=== PATIENT | female | born 1950 | race Caucasian/White ===

== ENCOUNTER 2020-01-16 02:57 | Emergency (ER) | payer MEDICARE, OTHER, SELFPAY ==
--- NOTE | ~2020-01-16 | XR_ITS ---
EXAMINATION: XR finger 3rd RT min 2V DATE: 01/16/2020 03:56 INDICATION: Swelling and pain at the right third digit TECHNIQUE: Dorsal palmar, lateral and 2 oblique views of the right third digit were obtained COMPARISON: None FINDINGS: Alignment is normal. No fracture. Mild polyarticular osteoarthritis including at the third metacarpop halangeal, second and third proximal interphalangeal and third and fourth distal interphalangeal join ts. No cortical erosions or periosteal reaction. Mild soft tissue swelling throughout the third digit . IMPRESSION: 1. Mild polyarticular osteoarthritis at the visualized right hand. No acute osseous abnormality. Reviewed, dictated and finalized at location A. IMPRESSION: 1. Mild polyarticular osteoarthritis at the visualized right hand. No acute oss eous abnormality.
[2020-01-16 03:25] VITALS: BP 154/72; PULSE 65; RESP 20; TEMP 36; O2SAT 100
[2020-01-16 05:11] VITALS: BP 144/78; PULSE 68; RESP 14; O2SAT 96
--- NOTE | 2020-01-16 06:44 | ED.SKABFB ---
HPI - Skin/Abscess/Foreign Bdy General Chief complaint: Skin/Abscess/Foreign Body Stated complaint: right middle finger injury/infx Time Seen by Provider: 01/16/20 03:52 History of Present Illness HPI narrative: Patient is a 69-year-old female who presents ER with swelling to her right third digit over the fat pad of the finger. Reports she poked her finger on something about 1 week ago. She developed swelling and then actually had a purulent area that was draining. It is no longer draining and the swelling has increased. No fevers or chills or sweats. No red streaking up the arm. Related Data Allergies Allergy/AdvReac Type Severity Reaction Status Date / Time Penicillins Allergy Unknown Hives Verified 01/16/20 03:24 Review of Systems Constitutional: Constitutional: Denies chills and Denies fever(s) Musculoskeletal: Musculoskeletal: Denies arthralgias and Denies joint swelling Comments: Finger swelling Neurologic: Denies focal weakness and Denies numbness PMFSH Past Medical History Medical History (Updated 01/16/20 @ 06:49 by Moe Whtye MD) Hypertension Surgical History Surgical History (Updated 01/16/20 @ 06:46 by Moe Whyte MD) History of cholecystectomy History of left oophorectomy Family History Family History (Updated 11/19/17 @ 14:57 by DOCTOR UNKNOWN) Mother Cerebrovascular accident Family history of emphysema Family history of diabetes mellitus in first degree relative Family history of type 2 diabetes mellitus Sibling Hypertension Cerebrovascular accident Family history of diabetes mellitus in first degree relative Patient's sister is in good health Father Hypertension Family history of alcoholism Other Diabetes mellitus Family history of allergic disorder Social History Social History Smoking status: Former smoker Smoking end date: 07/02/87 Alcohol intake: never Gender identity (if verbalized by the patient): Female Exam Narrative: Exam Narrative: GENERAL: Well-appearing, well-nourished, and in no acute distress. HEAD: Normocephalic, atraumatic. SKIN: Warm, dry, no rash. Swelling of the fat pad of the right third digit consistent with a felon, central area over the fat pad where there was purulent drainage that is not currently draining. NEURO: No focal deficits. Alert and oriented x3. PSYCH: Normal mood and affect. Course Vital Signs Vital signs: Vital Signs Temperature 96.8 F L 01/16/20 03:25 Pulse Rate 65 01/16/20 03:25 Respiratory Rate 20 01/16/20 03:25 Blood Pressure 154/72 H 01/16/20 03:25 Pulse Oximetry 100 01/16/20 03:25 Temperature 96.8 F L 01/16/20 03:25 Pulse Rate 65 01/16/20 03:25 Respiratory Rate 20 01/16/20 03:25 Blood Pressure 154/72 H 01/16/20 03:25 Pulse Oximetry 100 01/16/20 03:25 Procedures Abscess I/D finger: Date of Incision: 01/16/20 Time of Incision: 06:40 Side (if applicable): right Sedation/analgesia: none Local Anesthetic: lidocaine 1% Amount of anesthesia used (mL): 2 Technique: incised with #11 blade Irrigation: No Packing used?: none I&D Results: Nothing Complications: other (none) Discharge Plan Discharge Clinical Impression: Felon of finger Patient Disposition: Home, Self-Care Condition: Stable Instructions: Cellulitis (ED) Additional Instructions: You have an infection of the soft tissue of your finger. Take antibiotics to resolve your symptoms. Return the ER if you have worsening pain, you have fever over 100.4 ?F, you have additional concerns. Prescriptions: New sulfamethoxazole-trimethoprim [Bactrim DS] 800-160 mg tablet 1 tablet PO Q12H Qty: 14 RF: 0 Follow-up/Referrals: PHYSICIAN,[facility] EXEC [Primary Care Provider] - Ilya Rodríguez MD [Physician] - 1 Week
[2020-01-16 06:58] VITALS: BP 159/82; PULSE 72; RESP 14; TEMP 36.8; O2SAT 100
== END 2020-01-16 07:00 | disposition home or self-care (01) ==
PROVIDERS: Emergency Provider Emergency Medicine
DX: L03.011 Cellulitis of right finger (principal); I10 Essential (primary) hypertension; Z87.891 Personal history of nicotine dependence
CPT/HCPCS: 10060; 26010; 73140; 99283

== ENCOUNTER 2020-07-13 09:36 | Outpatient (CLI) | payer MEDICARE, OTHER, SELFPAY ==
[2020-07-13 10:09] LABS: Hemoglobin A1C 6.2 % (<5.7)
[2020-07-13 10:13] LABS: Alanine Aminotransferase 23 U/L (4-35); Alkaline Phosphatase 94 U/L (38-126); Anion Gap 1 mmol/L (8-16); Aspartate Amino Transferase 35 U/L (14-36); Bilirubin,Total 0.6 mg/dL (0.2-1.3); Blood Urea Nitrogen 16 mg/dL (7-17); Calcium 8.7 mg/dL (8.4-10.2); Carbon Dioxide 34 mmol/L (22-30); Chloride 101 mmol/L (98-107); Cholesterol 191 mg/dL (0-200); Estimated Glomerular Filt Rate > 60; Glucose 118 mg/dL (65-105); HDL Direct 49 mg/dL; Potassium 4.1 mmol/L (3.4-5.0); Sodium 136 mmol/L (137-145); Triglycerides 98 mg/dL (<150)
[2020-07-13 10:25] LABS: LDL Cholesterol Direct 101 mg/dL
== END 2020-07-13 09:37 | disposition home or self-care (01) ==
PROVIDERS: PCP Emergency Medicine; Visit Provider Emergency Medicine
DX: E78.5 Hyperlipidemia, unspecified (principal); E11.9 Type 2 diabetes mellitus without complications
CPT/HCPCS: 36415; 80053; 80061; 83036

== ENCOUNTER 2021-02-09 14:24 | Outpatient (CLI) | payer MEDICARE, OTHER, SELFPAY ==
--- NOTE | ~2021-02-09 | DEXA_ITS ---
Bone Density Report Name: Rosa Tuttle Age: 70 Sex: Female Ethnicity: White Date of : 1950 Indication: postmenopausal; parental hip fracture; height loss; Referring Provider: VERN WOLFF Study: Bone densitometry was performed. Exam Date: February 09, 2021 Accession number: [id number] Bone Density: Region BMD T-score Z-score Classification AP Spine (L1, L2, L4) 1.103 0.6 2.6 Normal Femoral Neck (Left) 0.705 -1.3 0.4 Osteopenia Total Hip (Left) 0.909 -0.3 1.2 Normal Total Hip Bilateral Avg 0.925 -0.2 1.3 Normal Femoral Neck (Right) 0.748 -0.9 0.8 Normal Total Hip (Right) 0.941 0.0 1.4 Normal World Health Organization criteria for BMD impression classify patients as: Normal (T-score at or above -1.0), Osteopenia (T-score between -1.0 and -2.5), or Osteoporosis (T-score at or below -2.5). 10-year Fracture Risk(1): Major Osteoporotic Fracture 15% Hip Fracture 1.9% Reported Risk Factors: [place] (), Neck BMD=0.705, BMI=28.3, parental fracture (1) FRAX(R) Version 3.08. Fracture probability calculated for an untreated patient. Fracture probability may be lower if the patient has received treatment. Clinical Information Provided by Patient: Parent has had a hip fracture Patient maximum height was 65 Menopause Age: 47 Drinks caffeinated beverages Onset of menses at age 14 Number of children 1 Impression: The patient has low bone mass, based on the Left Femoral Neck T-score. The patient has an estimated ten-year risk of hip fracture of 1.9% and an estimated ten-year risk of major fracture of 15%, based on the WHO FRAX algorithm. The patient has risk factors, including: parental hip fracture. Discussion: BONE DENSITY IS LOW AT ONE OR MORE SKELETAL SITES. This patient's lowest T-score is low at one or more skeletal sites. It meets the World Health Organization's (WHO) criteria for ?low bone mass? (T-score between -1.0 and -2.5). The patient's 10-year risk of fracture as calculated by FRAX is less than the threshold where pharmacological therapy is recommended by the National Osteoporosis Foundation (NOF). However, all treatment decisions require clinical judgment and consideration of individual patient factors, including patient preferences, comorbidities, previous drug use, risk factors not captured in the FRAX model (e.g., frailty, falls, vitamin D deficiency, increased bone turnover, interval significant decline in bone density) and possible under or overestimation of fracture risk by FRAX. The patient should follow a healthful lifestyle (good nutrition with adequate calcium and vitamin D, and appropriate weight-bearing exercise). Follow-Up: Consider repeating this study in 2 to 3 years to reassess this patient's status, or sooner if there is some new clinical indication. Repo
--- NOTE | ~2021-02-09 | MM_ITS ---
EXAMINATION: MM screening [place] BI w karis HISTORY: Screening TECHNIQUE: Craniocaudal and mediolateral oblique 3-D tomosynthesis images were obtained and synthetic 2-D images were generated. CAD analysis was submitted and interpreted. COMPARISON: Comparison to multiple prior studies sequentially, with oldest reviewed study dated 12/10. BREAST PARENCHYMAL COMPOSITION: Breast composed of scattered areas of fibroglandular density. FINDINGS: Stable small mass in the lower outer quadrant of the right breast anteriorly, previously ch aracterized as a cyst. The left breast is stable without evidence for malignancy. IMPRESSION: 1. No mammographic evidence of malignancy. 2. Recommend routine screening mammography in one year. BI-RADS Category 2: Benign finding(s). Reviewed, dictated and finalized at location A.
== END 2021-02-09 14:25 | disposition home or self-care (01) ==
LOC: ANHIMG 14:27
PROVIDERS: PCP Emergency Medicine; Visit Provider Emergency Medicine
DX: Z12.31 Encounter for screening mammogram for malignant neoplasm of breast (principal); Z78.0 Asymptomatic menopausal state; M85.852 Other specified disorders of bone density and structure, left thigh
CPT/HCPCS: 77063; 77067; 77080

== ENCOUNTER 2021-03-01 08:35 | Outpatient (CLI) | payer MEDICARE, OTHER, SELFPAY ==
[2021-03-01 09:10] LABS: Alanine Aminotransferase 27 U/L (4-35); Albumin Level 4.1 g/dL (3.5-5.1); Alkaline Phosphatase 90 U/L (38-126); Anion Gap 8 mmol/L (8-16); Aspartate Amino Transferase 41 U/L (14-36); Blood Urea Nitrogen 23 mg/dL (7-17); Calcium 9.1 mg/dL (8.4-10.2); Carbon Dioxide 26 mmol/L (22-30); Chloride 101 mmol/L (98-107); Estimated Glomerular Filt Rate > 60; Glucose 108 mg/dL (65-110); Sodium 135 mmol/L (137-145)
[2021-03-01 09:38] LABS: Hemoglobin A1C 6.1 % (<5.7)
== END 2021-03-01 08:36 | disposition home or self-care (01) ==
PROVIDERS: PCP Emergency Medicine; Visit Provider Emergency Medicine
DX: R73.03 Prediabetes (principal); Z13.220 Encounter for screening for lipoid disorders; R73.9 Hyperglycemia, unspecified
CPT/HCPCS: 36415; 80053; 83036

== ENCOUNTER 2022-03-21 18:00 | Emergency (ER) | payer MEDICARE, OTHER, SELFPAY ==
[2022-03-21] VITALS (22 sets, daily range): BP systolic 120–143; BP diastolic 61–74; PULSE 65–80; RESP 9–20; O2SAT 94–100
--- NOTE | ~2022-03-21 | CT_ITS ---
EXAMINATION: CT abdomen pelvis w con DATE: 03/21/2022 21:01 INDICATION: abdominal pain, vomiting TECHNIQUE: Computed tomography (CT) of the abdomen and pelvis was performed with 100 mL Omnipaque-350 intravenous contrast. Automated exposure control and iterative reconstruction technique were employe d. The dose-length product was 956.49 mGy-cm. COMPARISON: 08/26/18. FINDINGS: Lower thorax: Bibasilar dependent scar/atelectasis. Coronary artery calcifications. 8 mm subsolid rig ht lower lobe nodule is no longer visualized. Liver: Scattered hypodensities that are too small to characterize but most likely represent cysts. Mi ld stable intrahepatic biliary duct dilation. Biliary/Gallbladder: Gallbladder is absent. No bile duct dilation. Pancreas: No mass or duct dilation. Spleen: Normal. Adrenals:No mass. Kidneys: No mass, stone, or hydronephrosis. GI tract: Mild distal esophageal and gastric wall edema. No small or large bowel dilation. Normal sophie endix. Diverticulosis without diverticulitis. Mesentery/Peritoneum: No ascites, mass, or free air. Retroperitoneum: No mass. Atherosclerotic abdominal aortic and/or arterial calcifications. Pelvis: Pelvic organs are within normal limits. Soft Tissues: Soft tissues and body wall unremarkable. Bones: No acute osseous finding. IMPRESSION: Mild esophagitis/gastritis. Otherwise, no acute abdominopelvic process detected. Interval resolution of the previously described subsolid right lower lobe nodule. Reviewed, dictated and finalized at location K. IMPRESSION: Mild esophagitis/gastritis. Otherwise, no acute abdominopelvic process detected . Interval resolution of the previously described subsolid right lower lobe nod ule.
[2022-03-21 18:26] LABS: Basophils Percent Auto 0.3 % (0.2-1.2); Eosinophils Absolute Auto 0.1 K/mm3 (0-0.3); Hematocrit 37.9 % (37.0-47.0); Hemoglobin 12.3 g/dL (12.0-15.0); Immature Granulocyte Absolute 0.04 K/mm3 (0.00-0.031); Immature Granulocyte Percent A 0.4 % (0-0.5); Lymphocytes Absolute Auto 1.25 K/mm3 (0.9-3.2); Lymphocytes Percent Auto 11.5 % (18.3-44.2); Mean Corpuscular HGB Conc 32.5 g/dl (32-36); Mean Corpuscular Hemoglobin 30.5 pg (26-34); Mean Platelet Volume 10.4 fl (7.4-10.4); Monocytes Absolute Auto 0.5 K/mm3 (0.1-0.6); Monocytes Percent Auto 4.7 % (2.6-8.5); Neutrophils Percent Auto 82.1 % (45.5-73.1); Platelet Count Result 242 k/mm3 (150-375); Red Blood Count 4.03 M/mm3 (4.2-5.4); Red Cell Distribution Width 13.1 % (11.5-14.5); White Blood Count 10.9 K/mm3 (4.5-10.0)
[2022-03-21 18:40] LABS: Alanine Aminotransferase 36 U/L (6-35); Albumin Level 4.1 g/dL (3.5-5.1); Alkaline Phosphatase 150 U/L (38-126); Anion Gap 9 mmol/L (8-16); Aspartate Amino Transferase 55 U/L (14-36); Bilirubin,Total 0.5 mg/dL (0.2-1.3); Blood Urea Nitrogen 27 mg/dL (7-17); Calcium 8.6 mg/dL (8.4-10.2); Carbon Dioxide 25 mmol/L (22-30); Chloride 102 mmol/L (98-107); Estimated CRCL calculation 67 ml/min; Estimated Glomerular Filt Rate > 60; Glucose 149 mg/dL (65-110); Lipase 103 U/L (23-300); Potassium 4.1 mmol/L (3.4-5.0); Sodium 136 mmol/L (137-145)
[2022-03-21 19:42] LABS: Appearance Urine Clear (Clear); Bilirubin Urine Negative (Negative); Blood Urine Negative (Negative); Color Urine Yellow (Yellow); Glucose Urine UA Negative (Negative); Ketones Urine Negative (Negative); Leukocyte Esterase Ur Trace LEU/UL (Negative); Nitrate Urine Negative (Negative); Protein Urine Negative (Negative); Specific Grav Ur 1.025 (1.001-1.035); Urobilinogen Urine 0.2 mg/dL (<2.0)
[2022-03-21 19:57] LABS: Bacteria Urine Trace /hpf; Mucus Urine Rare /lpf; Squamous Epithelial Cell Urine Rare /hpf (Few)
[2022-03-21 20:06] LABS: Add Urine Microscopic? YES
--- NOTE | 2022-03-21 20:10 | ECG_ITS ---
Measurements Intervals [place] Rate: 72 P: 72 WA: 170 QRS: 45 QRSD: 90 T: 45 QT: 404 QTc: 442 Interpretive Statements SINUS RHYTHM BASELINE WANDER- II, III NORMAL ECG COMPARED TO ECG 02/27/2019 01:58:30 NO SIGNIFICANT CHANGES Electronically Signed On 03-22-2022 7:46:01 CDT by Smith Herron D.O.
--- NOTE | 2022-03-21 20:36 | ED.ABDPAIN ---
HPI - Abdominal Pain General Chief Complaint: Abdominal Pain Stated Complaint: ABD PAIN, N/V/D Time Seen by Provider: 03/21/22 19:40 Source: patient Mode of arrival: ambulatory Limitations: no limitations History of Present Illness HPI narrative: This is a 72 year old female who presents for evaluation of nausea, vomiting, and diarrhea. She reports today she developed intermittent epigastric dull ache with nausea and vomiting. She had nonbloody, nonbilious emesis today with 2 episodes of nonbloody diarrhea. She reports having similar symptoms in the past but she is unsure of diagnosis. She is afraid because she had sister to of colon cancer. Her last colonoscopy was 4 years ago and she was told to return in 5 years. She denies fever, chills, cough, URI, sob. She thinks her pain improved with drinking water. She also report reflux currently. Related Data Allergies Allergy/AdvReac Type Severity Reaction Status Date / Time Penicillins Allergy Unknown Hives Verified 07/13/21 10:34 Review of Systems Review of Systems: All systems reviewed & are unremarkable except as noted in HPI and below Constitutional: Constitutional: Denies chills, Denies fatigue and Denies fever(s) ENT: Denies nasal congestion and Denies sore throat Cardiovascular: Cardiovascular: Denies chest pain Respiratory: Respiratory: Denies chest congestion, Denies cough and Denies dyspnea Gastrointestinal: Gastrointestinal: Reports abdominal pain, Reports diarrhea, Reports nausea and Reports vomiting Musculoskeletal: Musculoskeletal: Denies back pain PMFSH Past Medical History Medical History Breast asymmetry between [place] breast and reconstructed breast Hemorrhoids Hypertension Insomnia Mumps Radial styloid tenosynovitis [de quervain] Right wrist pain Varicose vein of leg Surgical History Surgical History History of cholecystectomy History of left oophorectomy Family History Family History Mother Cerebrovascular accident Family history of emphysema Family history of diabetes mellitus in first degree relative Family history of type 2 diabetes mellitus Sibling Hypertension Cerebrovascular accident Family history of diabetes mellitus in first degree relative Patient's sister is in good health Father Hypertension Family history of alcoholism Other Diabetes mellitus Family history of allergic disorder Social History Social History Smoking status: Former smoker Smoking end date: 07/02/87 Alcohol intake: never Gender identity (if verbalized by the patient): Female Exam Const: General: no acute distress and alert Nutritional Appearance: well nourished Orientation/consciousness: patient oriented x3 Limitations: no limitations Eyes: EOM: EOMs intact bilaterally Chest: Chest palpation & inspection: normal inspection of the chest Resp: Effort & Inspection: normal respiratory effort Auscultation: clear to auscultation bilaterally Cardio: Rate: regular rate Rhythm: regular rhythm Heart sounds: no murmurs GI: GI Palp: Yes Soft to palpation, No Tenderness to palpation present (GI), No Guarding due to palpation present (GI) and No Rigid due to palpation Auscultation: normal bowel sounds Back/Spine/Pelvis: Back: no CVA tenderness Skin: General skin exam: normal color Rashes: no rashes Wounds: no wounds Neuro: General: patient oriented x3, moves all extremities and CN's II-XI intact bilaterally Psych: Mental Status: mental status grossly normal Affect: normal affect Course Reevaluation(s) Reevaluation #1: Patient states she feels better and she denies any nausea. I Discussed CT shows signs of GERD with esophagitis. she will be started on treatment and need to follow up with
[2022-03-21] MEDS: SODIUM CHLORIDE 0.9% IV 1,000 ML 999 ML IV CONT (20:44)
[2022-03-21] MEDS: ONDANSETRON INJ 4 MG/2 ML VIAL IV PUSH (20:45)
[2022-03-21] MEDS: PANTOPRAZOLE SODIUM IV 40 MG VIAL IV PUSH (20:45)
[2022-03-21 21:17] LABS: SARS-CoV-2 RNA PCR Negative
[2022-03-21] MEDS: BELLADONNA ALK/PHENOB ELIX 10 ML, MAG HYDROX/ALUMINUM HYD/SIMETH 30 ML, LIDOCAINE HCL 2... PO (22:36)
== END 2022-03-21 23:41 | disposition home or self-care (01) ==
PROVIDERS: Emergency Medicine; Emergency Provider General Practice; PCP Emergency Medicine
DX: K29.70 Gastritis, unspecified, without bleeding (principal); Z20.822 Contact with and (suspected) exposure to COVID-19; I10 Essential (primary) hypertension; Z90.721 Acquired absence of ovaries, unilateral; Z87.891 Personal history of nicotine dependence; K20.90 Esophagitis, unspecified without bleeding
CPT/HCPCS: 36415; 74177; 80053; 81001; 83690; 85025; 93005; 96361; 96374; 96375; 99284; A9270; C9113; C9803; J2405; J7030; Q9967; U0003; U0005

== ENCOUNTER 2023-01-18 11:11 | Emergency (ER) | payer MEDICARE, OTHER, SELFPAY ==
--- NOTE | ~2023-01-18 | US_ITS ---
US venous doppler [facility] DATE: 01/18/2023 13:52 INDICATION: Swelling (lesions of the lower extremities TECHNIQUE: Real-time and color flow imaging and Doppler analysis of the veins of the lower extremitie s COMPARISON: None FINDINGS: The greater saphenous veins are patent. There is spontaneous and phasic flow and normal aug mentation and color flow signal and normal compression of the deep veins of both lower extremities. IMPRESSION: No evidence of deep venous thrombosis of the lower extremities Reviewed, dictated and finalized at Location A. Reviewed, dictated and finalized at location L.
[2023-01-18 11:33] VITALS: BP 162/71; PULSE 72; RESP 21; TEMP 36.2; O2SAT 100
[2023-01-18 12:52] LABS: Basophils Percent Auto 0.6 % (0.2-1.2); Eosinophils Absolute Auto 0.2 K/mm3 (0-0.3); Eosinophils Percent Auto 3.7 % (0-4.4); Hematocrit 38.6 % (37.0-47.0); Hemoglobin 12.6 g/dL (12.0-15.0); Immature Granulocyte Absolute 0.01 K/mm3 (0.00-0.031); Immature Granulocyte Percent A 0.2 % (0-0.5); Lymphocytes Absolute Auto 1.44 K/mm3 (0.9-3.2); Lymphocytes Percent Auto 28.2 % (18.3-44.2); Mean Corpuscular HGB Conc 32.6 g/dl (32-36); Mean Corpuscular Hemoglobin 30.7 pg (26-34); Mean Corpuscular Volume 94.1 fl (80-100); Mean Platelet Volume 9.8 fl (7.4-10.4); Monocytes Absolute Auto 0.3 K/mm3 (0.1-0.6); Monocytes Percent Auto 6.3 % (2.6-8.5); Neutrophils Absolute Auto 3.1 K/mm3 (1.3-6.7); Platelet Count Result 262 k/mm3 (150-375); Red Cell Distribution Width 13.1 % (11.5-14.5); White Blood Count 5.1 K/mm3 (4.5-10.0)
[2023-01-18 13:04] LABS: Anion Gap 6 mmol/L (8-16); Blood Urea Nitrogen 25 mg/dL (7-17); Calcium 8.8 mg/dL (8.4-10.2); Carbon Dioxide 30 mmol/L (22-30); Chloride 101 mmol/L (98-107); Estimated CRCL calculation 72 ml/min; Estimated Glomerular Filt Rate > 60; Glucose 107 mg/dL (65-110); Potassium 4.5 mmol/L (3.4-5.0); Sodium 137 mmol/L (137-145)
[2023-01-18 13:05] LABS: INR 0.9; Prothrombin Time 12.2 Seconds (11.1-14.7)
[2023-01-18 13:06] LABS: Partial Thromboplastin Time 23.9 SECONDS (22.3-36.8)
--- NOTE | 2023-01-18 13:15 | ED.GENADULT ---
HPI - General Adult General Chief complaint: Extremity Problem,Nontraumatic Stated complaint: bilateral leg swelling Time Seen by Provider: 01/18/23 12:05 History of Present Illness HPI narrative: Patient is a 39-year-old female who presents ER with lower extremity swelling. Ongoing for 2 weeks. Associated with rash near the ankle especially on the left side. Rashes red and blanching. No obvious bruising. No trauma. Has had similar rash in the past. Resolved previously with triamcinolone cream which is not helping at this time. No fevers or chills or sweats. Rash is not painful nor is it itchy. She does report it becomes warm at times. No history of DVT PE. No calf pain. Related Data Allergies Allergy/AdvReac Type Severity Reaction Status Date / Time Penicillins Allergy Unknown Hives Verified 01/18/23 12:11 Review of Systems Review of Systems: All systems reviewed & are unremarkable except as noted in HPI and below Constitutional: Constitutional: Denies chills, Denies fatigue and Denies fever(s) ENT: Denies nasal congestion and Denies sore throat Cardiovascular: Cardiovascular: Denies chest pain, Denies rapid heart rate and Denies radiating jaw, neck or arm pain Respiratory: Respiratory: Denies cough and Denies dyspnea Gastrointestinal: Gastrointestinal: Denies abdominal pain and Denies nausea Musculoskeletal: Musculoskeletal: Denies myalgias, Denies arthralgias and Denies joint swelling Comments: Bilateral lower extremity swelling Integumentary/Breasts: Skin/Breast: Denies pruritus, Reports erythema, Reports rash and Denies skin ulcer PMFSH Past Medical History Medical History Breast asymmetry between [place] breast and reconstructed breast Hemorrhoids Hypertension Insomnia Mumps Radial styloid tenosynovitis [de quervain] Right wrist pain Varicose vein of leg Surgical History Surgical History History of cholecystectomy History of left oophorectomy Family History Family History Mother Cerebrovascular accident Family history of emphysema Family history of diabetes mellitus in first degree relative Family history of type 2 diabetes mellitus Sibling Hypertension Cerebrovascular accident Family history of diabetes mellitus in first degree relative Patient's sister is in good health Father Hypertension Family history of alcoholism Other Diabetes mellitus Family history of allergic disorder Social History Social History Smoking status: Former smoker Smoking end date: 07/02/87 Alcohol intake: never Gender identity (if verbalized by the patient): Female Exam Narrative: GENERAL: Well-appearing, well-nourished, and in no acute distress. HEAD: Normocephalic, atraumatic. EYES: PERRL and EOMI. ENT: Mucous membranes moist. CHEST: Clear to auscultation. No respiratory distress. HEART: Regular rate and rhythm. Normal peripheral pulses. EXTREMITIES: Normal range of motion. +2 edema. SKIN: Warm, dry, no rash. Large patch left medial ankle/distal tibial region that is red but not treatment warm. Blanching. It is not raised. There is some central area that looks normal she reports that some areas that is resolved. No skin flaking or crusting. There is additional small rash to the right foot medial leg but has a couple bumps consistent with bug bite. There is another small patch on the lateral right foot. NEURO: Alert and oriented x3. PSYCH: Normal mood and affect. Course Course Emergency Course: Patient resting comfortably. Informed of results. Will treat red patch like cellulitis. No need for IV antibiotics. Discharge home. Vital Signs Vital signs: Vital Signs Temperature 97.2 F L 01/18/23 11:33 Pulse Rate 72 01/18/23 11:33 Respir
== END 2023-01-18 16:20 | disposition home or self-care (01) ==
PROVIDERS: Emergency Provider Emergency Medicine; PCP Emergency Medicine
DX: L03.116 Cellulitis of left lower limb (principal); I10 Essential (primary) hypertension; Z87.891 Personal history of nicotine dependence
CPT/HCPCS: 36415; 80048; 85025; 85610; 85730; 93970; 99284

== ENCOUNTER 2023-02-18 13:07 | Emergency (ER) | payer MEDICARE, OTHER, SELFPAY ==
--- NOTE | ~2023-02-18 | US_ITS ---
EXAMINATION: US venous doppler [facility] DATE: 02/18/2023 14:22 INDICATION: Lower limb swelling. TECHNIQUE: Grayscale ultrasound images without and with compression and Doppler ultrasound images of the bilateral lower extremity veins were obtained. COMPARISON: Ultrasound 01/18/2023 FINDINGS: The visualized portions of right common femoral vein, profunda (deep) femoral vein, femoral vein, pop liteal vein, peroneal veins, posterior tibial veins, and greater saphenous vein outflow are patent. The visualized portions of left common femoral vein, profunda femoral vein, femoral vein, popliteal v ein, peroneal veins, posterior tibial veins, and greater saphenous vein outflow are patent. IMPRESSION: 1. No deep venous thrombosis. Reviewed, dictated and finalized at location A.
--- NOTE | ~2023-02-18 | XR_ITS ---
EXAMINATION: XR chest 2V DATE: 02/18/2023 14:37 INDICATION: Bilateral upper extremity pain, near syncope TECHNIQUE: AP and lateral views of the chest are obtained. COMPARISON: 02/27/2019 FINDINGS: The lungs are free of acute opacities. No pleural effusion or pneumothorax. The cardiomedia stinal silhouette is normal. There is mild thoracic spondylosis. IMPRESSION: 1. No acute cardiopulmonary abnormality. Reviewed, dictated and finalized at location F.
[2023-02-18 13:07] VITALS: BP 139/63; PULSE 72; RESP 12; TEMP 36.8; O2SAT 100
--- NOTE | 2023-02-18 13:49 | ED.EXTPRO ---
HPI - Extremity Problem General Chief complaint: Extremity Problem,Nontraumatic Stated complaint: weakness Time Seen by Provider: 02/18/23 13:48 History of Present Illness HPI Narrative: The patient is a 72-year-old female with history of hypertension here after an episode of near-syncope with bilateral arm pain. Patient states that she was shopping for groceries and began experiencing aching pain beginning in the biceps down into the hand in bilateral arms. She states at that time she additionally felt diaphoretic and lightheaded. She walked over to The pharmacy section of the store and they had her sit down. She notes that her symptoms began easing up at that time but did not fully resolve until she arrived to the emergency department with EMS. She denied any chest pain or shortness of breath during this episode. She denies any prior history of PE, DVT or cardiac disease. She has never had a stress test in the past and has never seen a template maker. She denies any change in her symptoms as she was ambulating across the store. She denies any exertional symptoms in the past or episodes of chest pain. No cough or congestion. No fever or chills. Of note, patient lost her about 1 month ago when he unexpectedly and she has had a difficult time since then. Related Data Home Medications Medication Instructions Recorded Confirmed cholecalciferol (vitamin D3) 125 125 mcg PO DAILY 02/08/23 02/08/23 mcg (5,000 unit) capsule loratadine 10 mg tablet (Claritin) 10 mg PO DAILY 02/08/23 02/08/23 nutritional supplements ea PO 02/08/23 02/08/23 Allergies Allergy/AdvReac Type Severity Reaction Status Date / Time Penicillins Allergy Unknown Hives Verified 02/08/23 09:06 Review of Systems Review of Systems: CONSTITUTIONAL: Denies fever, chills, or sweats. EYES: Denies visual changes, redness, or discharge. ENT: Denies rhinorrhea, congestion, sore throat, or otalgia. CARDIOVASCULAR: Denies chest pain, palpitations, or edema. Near syncope. RESPIRATORY: Denies cough or dyspnea. GASTROINTESTINAL: Denies abdominal pain, nausea, vomiting, or diarrhea. GENITOURINARY: Denies dysuria or hematuria. SKIN: Denies rash or itching. MUSCULOSKELETAL: Bilateral arm pain. Denies back pain, joint pain NEUROLOGIC: Denies headache, numbness, or weakness. PSYCHIATRIC: Denies anxiety or depression. [facility] Past Medical History Medical History (Updated 02/18/23 @ 18:10 by Delphine Grewal MD) Breast asymmetry between [place] breast and reconstructed breast Contact dermatitis Earache on right Hemorrhoids Hypertension Insomnia Mumps Radial styloid tenosynovitis [de quervain] Right wrist pain Sinusitis Varicose vein of leg Surgical History Surgical History History of cholecystectomy History of left oophorectomy Family History Family History Mother Cerebrovascular accident Family history of emphysema Family history of diabetes mellitus in first degree relative Family history of type 2 diabetes mellitus Sibling Hypertension Cerebrovascular accident Family history of diabetes mellitus in first degree relative Patient's sister is in good health Father Hypertension Family history of alcoholism Other Diabetes mellitus Family history of allergic disorder Social History Social History (Updated 02/08/23 @ 09:10 by Leena Du) Social History: Smoking status: Former smoker Tobacco type: cigarettes Second hand tobacco smoke exposure: No Smoking end date: 07/02/87 Alcohol intake: never Substance use: never Substance use type: does not use Lack of Transportation: No Lack of Food: Never True Current Housing: I Have Housing Concerned About Future Housing: No Difficulty Paying Gas/Electric Bills: No Difficulty Paying for Meds: No Currently Unemployed: No Education: Decline to Answ
--- NOTE | 2023-02-18 13:51 | ECG_ITS ---
Measurements Intervals [place] Rate: 69 P: 60 ND: 183 QRS: 21 QRSD: 97 T: 32 QT: 392 QTc: 421 Interpretive Statements SINUS RHYTHM NORMAL ELECTROCARDIOGRAM COMPARED TO ECG 03/21/2022 22:20:16 NO SIGNIFICANT CHANGES Electronically Signed On 02-19-2023 7:24:24 CDT by Renzo Landa M.D.
--- NOTE | 2023-02-18 14:20 | PC.NURSE ---
pt ambulated to bathroom with steady gait. Denies any SOB/CP with ambulation
[2023-02-18 14:22] LABS: Basophils Percent Auto 0.6 % (0.2-1.2); Eosinophils Absolute Auto 0.2 K/mm3 (0-0.3); Eosinophils Percent Auto 2.9 % (0-4.4); Hematocrit 37.1 % (37.0-47.0); Hemoglobin 12.4 g/dL (12.0-15.0); Immature Granulocyte Absolute 0.02 K/mm3 (0.00-0.031); Immature Granulocyte Percent A 0.4 % (0-0.5); Lymphocytes Absolute Auto 1.55 K/mm3 (0.9-3.2); Lymphocytes Percent Auto 28.4 % (18.3-44.2); Mean Corpuscular HGB Conc 33.4 g/dl (32-36); Mean Corpuscular Hemoglobin 30.8 pg (26-34); Mean Corpuscular Volume 92.1 fl (80-100); Mean Platelet Volume 10.3 fl (7.4-10.4); Monocytes Absolute Auto 0.7 K/mm3 (0.1-0.6); Monocytes Percent Auto 12.1 % (2.6-8.5); Neutrophils Percent Auto 55.6 % (45.5-73.1); Platelet Count Result 263 k/mm3 (150-375); Red Blood Count 4.03 M/mm3 (4.2-5.4); Red Cell Distribution Width 12.2 % (11.5-14.5); White Blood Count 5.5 K/mm3 (4.5-10.0)
[2023-02-18 14:30] LABS: Appearance Urine Clear (Clear); Bilirubin Urine Negative (Negative); Blood Urine Negative (Negative); Color Urine Yellow (Yellow); Glucose Urine UA Negative (Negative); Ketones Urine Trace mg/dL (Negative); Leukocyte Esterase Ur Negative LEU/UL (Negative); Nitrate Urine Negative (Negative); Protein Urine Negative (Negative); Specific Grav Ur 1.007 (1.001-1.035); Urobilinogen Urine 0.2 mg/dL (<2.0)
[2023-02-18 14:32] LABS: Alanine Aminotransferase 24 U/L (6-35); Albumin Level 4.2 g/dL (3.5-5.1); Alkaline Phosphatase 133 U/L (38-126); Anion Gap 6 mmol/L (8-16); Aspartate Amino Transferase 37 U/L (14-36); Bilirubin,Total 0.8 mg/dL (0.2-1.3); Blood Urea Nitrogen 25 mg/dL (7-17); Carbon Dioxide 30 mmol/L (22-30); Chloride 95 mmol/L (98-107); Estimated CRCL calculation 68 ml/min; Estimated Glomerular Filt Rate > 60; Glucose 121 mg/dL (65-110); Lipase 189 U/L (23-300); Potassium 4.3 mmol/L (3.4-5.0); Prothrombin Time 13.3 Seconds (11.1-14.7); Sodium 131 mmol/L (137-145)
[2023-02-18 14:33] LABS: Partial Thromboplastin Time 23.7 SECONDS (22.3-36.8)
[2023-02-18 14:42] LABS: D Dimer 0.53 ug/mL (<0.48)
[2023-02-18 14:44] LABS: NT Pro B Type Natriuretic Pept 65 pg/mL (19.9-100); Troponin I < 0.012 ng/mL (0.000-0.034)
[2023-02-18 15:13] LABS: Add Urine Microscopic? NO
[2023-02-18 17:31] VITALS: BP 130/63; PULSE 68; RESP 16; O2SAT 99
[2023-02-18 17:53] LABS: Troponin I < 0.012 ng/mL (0.000-0.034)
[2023-02-18 18:41] VITALS: BP 119/61; PULSE 70; RESP 16; TEMP 36.8; O2SAT 99
== END 2023-02-18 18:45 | disposition home or self-care (01) ==
PROVIDERS: Emergency Provider Student in an Organized Health Care Education/Training Program; PCP Family Medicine
DX: R55 Syncope and collapse (principal); M79.602 Pain in left arm; M79.601 Pain in right arm; R22.43 Localized swelling, mass and lump, lower limb, bilateral; I10 Essential (primary) hypertension; Z87.891 Personal history of nicotine dependence; Z90.49 Acquired absence of other specified parts of digestive tract; Z90.721 Acquired absence of ovaries, unilateral
CPT/HCPCS: 36415; 71046; 80053; 81003; 83690; 83880; 84484; 85025; 85380; 85610; 85730; 93005; 93970; 99284

== ENCOUNTER 2023-07-30 09:35 | Outpatient (CLI) | payer MEDICARE, OTHER, SELFPAY ==
--- NOTE | 2023-07-30 09:47 | ECHO_ITS ---
Patient Info Name: Rosa Tuttle Age: 73 years : 1950 Gender: Female Ht: 64 in Wt: 140 lbs BSA: 1.70 m2 HR: 71 bpm BP: 135 / 79 mmHg Technical Quality: Good Exam Date: 07/30/2023 9:53 AM Exam Location: Echo Lab Patient Status: Outpatient Admit Date: 07/30/2023 Staff Ordering Physician: Monica Elder MD Unscrambler: Jennifer German RDCS Attending Provider: Monica Elder MD Referring Physician: Jerrod WILDE; Exam Type: CA echo doppler color flow Study Info Indications R01.1 - Cardiac murmur, unspecified Complete two-dimensional, color flow and Doppler transthoracic echocardiogram is performed. Summary 1. Complete two-dimensional, color flow and Doppler transthoracic echocardiogram is performed. 2. Left ventricular chamber dimension is normal. 3. Left ventricular systolic function is normal, estimated at 65-70%. 4. There is mild concentric increased left ventricular wall thickness. 5. The left ventricular diastolic function is grade I diastolic dysfunction. 6. E/e' 12 is mildly elevated. 7. Global longitudinal strain is normal at -21.0%. 8. There is moderate aortic valve sclerosis. 9. There is mild aortic valve stenosis with a peak velocity of 197 cm/s, mean gradient of 9 mmHg, and aortic valve area of 1.9 cm2. 10. There is trace aortic valve regurgitation. 11. There is trace mitral valve regurgitation. 12. There is trace tricuspid valve regurgitation. 13. No pulmonary hypertension, estimated pulmonary arterial systolic pressure is 33 mmHg. Left Ventricle E/e' 12 is mildly elevated. Global longitudinal strain is normal at -21.0%. Left ventricular chamber dimension is normal. Left ventricular systolic function is normal, estimated at 65-70%. There is mild concentric increased left ventricular wall thickness. The left ventricular diastolic function is grade I diastolic dysfunction. Right Ventricle Right ventricular systolic function is normal and with normal TAPSE 2.9 cm. Right ventricular chamber dimension is normal. Left Atria Left atrial chamber dimension is normal. Right Atria Right atrial chamber dimension is normal. Aortic Valve The aortic valve is trileaflet. There is moderate aortic valve sclerosis. There is mild aortic valve stenosis with a peak velocity of 197 cm/s, mean gradient of 9 mmHg, and aortic valve area of 1.9 cm2. There is trace aortic valve regurgitation. Pulmonic Valve There is no pulmonic regurgitation. Mitral Valve There is no mitral valve stenosis. There is trace mitral valve regurgitation. Tricuspid Valve There is trace tricuspid valve regurgitation. No pulmonary hypertension, estimated pulmonary arterial systolic pressure is 33 mmHg. Pericardium/Pleural There is no pericardial effusion. Inferior Vena Cava Normal inferior vena cava with >50% collapse upon inspiration consistent with normal right atrial pressure, 5 mmHg. Aorta The aortic root size at the sinus of Valsalva is normal. Left Ventricular Outflow Tract Name Value Normal LVOT 2D LVOT Diameter 2.0 cm LVOT Doppler LVOT Peak Gradient 6 mmHg LVOT Mean Gradient 3 mmHg LVOT VTI 28
== END 2023-07-30 09:36 | disposition home or self-care (01) ==
LOC: ANHCARD 09:36
PROVIDERS: PCP Family Medicine; Visit Provider Family Medicine
DX: R06.02 Shortness of breath (principal); R01.1 Cardiac murmur, unspecified; I35.0 Nonrheumatic aortic (valve) stenosis
CPT/HCPCS: 93306

== ENCOUNTER 2023-08-13 19:49 | Emergency (ER) | payer MEDICARE, OTHER, SELFPAY ==
[2023-08-13] VITALS (22 sets, daily range): BP systolic 138–154; BP diastolic 65–84; PULSE 67–81; RESP 11–19; TEMP 36.3; O2SAT 97–100
--- NOTE | ~2023-08-13 | XR_ITS ---
EXAMINATION: XR chest 2V DATE: 08/13/2023 20:08 INDICATION: Chest pain TECHNIQUE: PA and lateral views of the chest were obtained. COMPARISON: Chest radiograph dated 02/18/2023 FINDINGS: The lungs remain clear with no focal airspace opacities, pulmonary edema, pleural effusion or pneumot horax. The cardiomediastinal silhouette is normal. Mild to moderate thoracic spondylosis with chronic mild anterior wedging of a few mid thoracic vertebral bodies. IMPRESSION: 1. No acute cardiopulmonary disease. Reviewed, dictated and finalized at location A. ON PAPER COATING SUPERVISOR
--- NOTE | 2023-08-13 19:53 | ECG_ITS ---
Measurements Intervals [place] Rate: 66 P: 66 OK: 165 QRS: 47 QRSD: 90 T: 58 QT: 370 QTc: 389 Interpretive Statements SINUS RHYTHM COMPARED TO ECG 02/18/2023 14:03:49 NO SIGNIFICANT CHANGES Electronically Signed On 08-14-2023 14:57:47 SERVICE DESK AGENT by Prema Santana M.D.
[2023-08-13 20:08] LABS: Basophils Percent Auto 0.4 % (0.2-1.2); Eosinophils Absolute Auto 0.2 K/mm3 (0-0.3); Eosinophils Percent Auto 3.1 % (0-4.4); Hematocrit 38.2 % (37.0-47.0); Hemoglobin 12.3 g/dL (12.0-15.0); Immature Granulocyte Absolute 0.02 K/mm3 (0.00-0.031); Immature Granulocyte Percent A 0.3 % (0-0.5); Lymphocytes Absolute Auto 2.52 K/mm3 (0.9-3.2); Lymphocytes Percent Auto 35.7 % (18.3-44.2); Mean Corpuscular HGB Conc 32.2 g/dl (32-36); Mean Corpuscular Hemoglobin 30.3 pg (26-34); Mean Corpuscular Volume 94.1 fl (80-100); Mean Platelet Volume 10.3 fl (7.4-10.4); Monocytes Absolute Auto 0.5 K/mm3 (0.1-0.6); Monocytes Percent Auto 7.5 % (2.6-8.5); Neutrophils Absolute Auto 3.7 K/mm3 (1.3-6.7); Platelet Count Result 289 k/mm3 (150-375); Red Blood Count 4.06 M/mm3 (4.2-5.4); Red Cell Distribution Width 13.2 % (11.5-14.5); White Blood Count 7.1 K/mm3 (4.5-10.0)
[2023-08-13 20:19] LABS: INR 0.9; Prothrombin Time 12.9 Seconds (11.1-14.7)
[2023-08-13 20:20] LABS: Partial Thromboplastin Time 26.5 SECONDS (22.3-36.8)
[2023-08-13 20:27] LABS: Alanine Aminotransferase 20 U/L (6-35); Albumin Level 4.1 g/dL (3.5-5.1); Alkaline Phosphatase 134 U/L (38-126); Anion Gap 5 mmol/L (8-16); Aspartate Amino Transferase 33 U/L (14-36); Bilirubin,Total 0.5 mg/dL (0.2-1.3); Blood Urea Nitrogen 30 mg/dL (7-17); Calcium 9.3 mg/dL (8.4-10.2); Carbon Dioxide 28 mmol/L (22-30); Chloride 102 mmol/L (98-107); Estimated CRCL calculation 64 ml/min; Estimated Glomerular Filt Rate > 60; Glucose 128 mg/dL (65-110); Lipase 141 U/L (23-300); Potassium 3.9 mmol/L (3.4-5.0); Sodium 135 mmol/L (137-145)
[2023-08-13 20:39] LABS: Troponin I < 0.012 ng/mL (0.000-0.034)
[2023-08-13] MEDS: ASPIRIN 81 MG CHEWABLE TABLET 324 MG PO (21:25)
--- NOTE | 2023-08-13 21:53 | ED.CHESTPAIN ---
HPI - Chest Pain General Chief Complaint: Chest Pain Stated Complaint: chest pain Time Seen by Provider: 08/13/23 21:50 Source: patient Mode of arrival: ambulatory Limitations: no limitations History of Present Illness HPI narrative: This is a 73-year-old female that presents to the emergency department for an episode of chest pain earlier. Reports she was having intermittent left-sided sharp chest pains. This has now resolved. Denies any associated symptoms. Denies fever, cough, shortness of breath or lower extremity edema. Related Data Home Medications Medication Instructions Recorded Confirmed loratadine 10 mg tablet (Claritin) 10 mg PO DAILY 02/08/23 08/01/23 nutritional supplements ea PO 02/08/23 08/01/23 Allergies Allergy/AdvReac Type Severity Reaction Status Date / Time Penicillins Allergy Unknown Hives Verified 08/01/23 14:31 Review of Systems Review of Systems: CONSTITUTIONAL: Denies fever CARDIOVASCULAR: Reports chest pain. Denies palpitations, or edema. RESPIRATORY: Denies dyspnea. All systems reviewed & are unremarkable except as noted in HPI and below PMFSH Past Medical History Medical History Breast asymmetry between [place] breast and reconstructed breast Contact dermatitis Earache on right Hemorrhoids Hypertension Insomnia Mumps Radial styloid tenosynovitis [de quervain] Right wrist pain Sinusitis Varicose vein of leg Surgical History Surgical History History of cholecystectomy History of left oophorectomy Family History Family History Mother Cerebrovascular accident Family history of emphysema Family history of diabetes mellitus in first degree relative Family history of type 2 diabetes mellitus Sibling Hypertension Cerebrovascular accident Family history of diabetes mellitus in first degree relative Patient's sister is in good health Father Hypertension Family history of alcoholism Other Diabetes mellitus Family history of allergic disorder Social History Social History Social History: Smoking status: Former smoker Tobacco type: cigarettes Second hand tobacco smoke exposure: No Smoking end date: 07/02/87 Alcohol intake: never Substance use: never Substance use type: does not use Lack of Transportation: No Lack of Food: Never True Current Housing: I Have Housing Concerned About Future Housing: No Difficulty Paying Gas/Electric Bills: No Difficulty Paying for Meds: No Currently Unemployed: No Education: Decline to Answer Difficulty w/ Childcare or Family Care: No Living arrangements: alone Occupation/Education: occupation Gender identity (if verbalized by the patient): Female Sexual Orientation (if Verbalized by the Patient): Straight or Heterosexual Exam Narrative: GENERAL: Elderly, well-nourished, and in no acute distress. HEAD: Normocephalic, atraumatic. EYES: EOMI. CHEST: Clear to auscultation. No respiratory distress. No wheezes rales or rhonchi HEART: Regular rate and rhythm. No murmur heard. Normal peripheral pulses. EXTREMITIES: Normal range of motion. No edema. SKIN: Warm, dry, no rash. NEURO: No focal deficits. Alert and oriented x3. PSYCH: Normal mood and affect Course Course Emergency Course: Patient updated on workup and recommendation for admission based on her heart score. She does not wish to stay in the hospital at this time. Encouraged to have close follow up with her PCP. She has been asymptomatic Vital Signs Vital signs: Vital Signs Oxygen Delivery Room Air 08/13/23 21:26 Temperature 97.4 F L 08/13/23 22:29 Pulse Rate 70 08/14/23 00:17 Respiratory Rate 12 08/14/23 00:17 Blood Pressure 136/64 08/14/23 00:17 Pulse Ox
--- NOTE | 2023-08-13 22:56 | ECG_ITS ---
Measurements Intervals [place] Rate: 67 P: 62 IN: 180 QRS: 44 QRSD: 102 T: 47 QT: 388 QTc: 412 Interpretive Statements SINUS RHYTHM LOW QRS VOLTAGE IN PRECORDIAL LEADS [QRS DEFLECTION < 1.0 mV IN CHEST LEADS] COMPARED TO ECG 08/13/2023 19:58:07 NO SIGNIFICANT CHANGES Electronically Signed On 08-14-2023 15:00:16 PAROLE OR PROBATION OFFICER by Prema Santana M.D.
[2023-08-13 23:55] LABS: Troponin I < 0.012 ng/mL (0.000-0.034)
[2023-08-14] VITALS: PULSE 68; RESP 13
[2023-08-14 00:02] VITALS: BP 135/73; PULSE 68; RESP 13
[2023-08-14 00:15] VITALS: PULSE 66; RESP 13
[2023-08-14 00:17] VITALS: BP 136/64; PULSE 70; RESP 12
== END 2023-08-14 01:01 | disposition home or self-care (01) ==
PROVIDERS: Emergency Medicine; Emergency Provider Physician Assistant; PCP Family Medicine
DX: R07.9 Chest pain, unspecified (principal); I10 Essential (primary) hypertension; G47.00 Insomnia, unspecified; Z87.891 Personal history of nicotine dependence; Z90.722 Acquired absence of ovaries, bilateral; Z90.49 Acquired absence of other specified parts of digestive tract
CPT/HCPCS: 36415; 71046; 80053; 83690; 84484; 85025; 85610; 85730; 93005; 99284; A9270

== ENCOUNTER 2023-08-15 08:02 | Outpatient (CLI) | payer MEDICARE, OTHER, SELFPAY ==
[2023-08-15 09:07] LABS: Basophils Percent Auto 0.6 % (0.2-1.2); Eosinophils Absolute Auto 0.2 K/mm3 (0-0.3); Eosinophils Percent Auto 3.8 % (0-4.4); Hematocrit 40.4 % (37.0-47.0); Hemoglobin 13.2 g/dL (12.0-15.0); Immature Granulocyte Absolute 0.02 K/mm3 (0.00-0.031); Immature Granulocyte Percent A 0.4 % (0-0.5); Lymphocytes Absolute Auto 1.62 K/mm3 (0.9-3.2); Lymphocytes Percent Auto 30.7 % (18.3-44.2); Mean Corpuscular HGB Conc 32.7 g/dl (32-36); Mean Corpuscular Hemoglobin 30.4 pg (26-34); Mean Corpuscular Volume 93.1 fl (80-100); Mean Platelet Volume 10.5 fl (7.4-10.4); Monocytes Absolute Auto 0.4 K/mm3 (0.1-0.6); Neutrophils Percent Auto 57.5 % (45.5-73.1); Platelet Count Result 300 k/mm3 (150-375); Red Blood Count 4.34 M/mm3 (4.2-5.4); Red Cell Distribution Width 13.3 % (11.5-14.5); White Blood Count 5.3 K/mm3 (4.5-10.0)
[2023-08-15 09:14] LABS: Hemoglobin A1C 6.4 % (<5.7)
[2023-08-15 09:16] LABS: Alanine Aminotransferase 20 U/L (6-35); Albumin Level 4.3 g/dL (3.5-5.1); Alkaline Phosphatase 104 U/L (38-126); Anion Gap 5 mmol/L (8-16); Aspartate Amino Transferase 33 U/L (14-36); Bilirubin,Total 0.7 mg/dL (0.2-1.3); Blood Urea Nitrogen 29 mg/dL (7-17); Carbon Dioxide 31 mmol/L (22-30); Chloride 101 mmol/L (98-107); Cholesterol 213 mg/dL (0-200); Estimated Glomerular Filt Rate > 60; Glucose 110 mg/dL (65-110); HDL Direct 67 mg/dL; Potassium 3.9 mmol/L (3.4-5.0); Sodium 137 mmol/L (137-145); Triglycerides 66 mg/dL (<150)
[2023-08-15 09:27] LABS: LDL Cholesterol Direct 104 mg/dL
== END 2023-08-15 08:03 | disposition home or self-care (01) ==
PROVIDERS: PCP Family Medicine; Visit Provider Physician Assistant
DX: R73.9 Hyperglycemia, unspecified (principal); I10 Essential (primary) hypertension; R14.3 Flatulence; R53.83 Other fatigue; R73.03 Prediabetes
CPT/HCPCS: 36415; 80053; 80061; 83036; 85025

== ENCOUNTER 2023-12-12 10:17 | Outpatient (CLI) | payer MEDICARE, OTHER, SELFPAY ==
[2023-12-12 11:29] LABS: Alanine Aminotransferase 33 U/L (6-35); Albumin Level 4.3 g/dL (3.5-5.1); Alkaline Phosphatase 115 U/L (38-126); Anion Gap 7 mmol/L (4-12); Aspartate Amino Transferase 37 U/L (14-36); Bilirubin,Total 0.7 mg/dL (0.2-1.3); Blood Urea Nitrogen 35 mg/dL (7-17); Calcium 9.2 mg/dL (8.4-10.2); Carbon Dioxide 29 mmol/L (22-30); Chloride 102 mmol/L (98-107); Estimated Glomerular Filt Rate > 60; Glucose 112 mg/dL (65-110); Potassium 4.5 mmol/L (3.4-5.0); Sodium 138 mmol/L (137-145)
== END 2023-12-12 10:18 | disposition home or self-care (01) ==
LOC: ANHLAB 10:20
PROVIDERS: PCP Family Medicine; Visit Provider Podiatrist Foot & Ankle Surgery
DX: M10.079 Idiopathic gout, unspecified ankle and foot (principal); B35.1 Tinea unguium
CPT/HCPCS: 36415; 80053; 84550

== ENCOUNTER 2024-02-28 12:57 | Emergency (ER) | payer MEDICARE, OTHER, SELFPAY ==
--- NOTE | ~2024-02-28 | CT_ITS ---
CT of the Abdomen and Pelvis: Indication: Abdominal pain Technique: 2.5 mm axial scans were obtained through the abdomen and pelvis following intravenous adm inistration of 100 cc of Omnipaque 350. Dose reduction technique was used on this scan by utilizing a utomated exposure control and iterative reconstruction technique. The dose-length product (DLP) was 1 208.46 mGy-cm. COMPARISON: 03/21/2022 Findings: Scans through the lung bases are unremarkable. The liver, spleen, pancreas, adrenals and kidneys are within normal limits. Cholecystectomy clips are present. There are atherosclerotic calcifications of the aorta. No lymphadenopathy. No bowel obstruction or bowel wall thickening. There is no evidence to suggest acute appendicitis. Images through the pelvis were performed. Urinary bladder unremarkable. No pelvic mass seen. No ascit es. Impression: No significant abnormalities seen. Reviewed, dictated and finalized at [facility]. Impression: No significant abnormalities seen.
[2024-02-28 13:00] VITALS: BP 162/69; PULSE 76; RESP 18; TEMP 36.5; O2SAT 100
[2024-02-28 13:23] LABS: Basophils Percent Auto 0.4 % (0.2-1.2); Eosinophils Absolute Auto 0.2 K/mm3 (0-0.3); Eosinophils Percent Auto 1.7 % (0-4.4); Hemoglobin 12.5 g/dL (12.0-15.0); Immature Granulocyte Absolute 0.05 K/mm3 (0.00-0.031); Immature Granulocyte Percent A 0.4 % (0-0.5); Lymphocytes Absolute Auto 1.42 K/mm3 (0.9-3.2); Lymphocytes Percent Auto 12.6 % (18.3-44.2); Mean Corpuscular HGB Conc 32.9 g/dl (32-36); Mean Corpuscular Hemoglobin 30.8 pg (26-34); Mean Corpuscular Volume 93.6 fl (80-100); Mean Platelet Volume 10.6 fl (7.4-10.4); Monocytes Absolute Auto 0.6 K/mm3 (0.1-0.6); Monocytes Percent Auto 5.6 % (2.6-8.5); Neutrophils Absolute Auto 8.9 K/mm3 (1.3-6.7); Neutrophils Percent Auto 79.3 % (45.5-73.1); Platelet Count Result 280 k/mm3 (150-375); Red Blood Count 4.06 M/mm3 (4.2-5.4); Red Cell Distribution Width 13.1 % (11.5-14.5); White Blood Count 11.3 K/mm3 (4.5-10.0)
[2024-02-28 13:35] LABS: Lactic Acid Reflex 0.6 mmol/L (0.7-2.0)
[2024-02-28 13:37] LABS: Alanine Aminotransferase 27 U/L (6-35); Albumin Level 4.5 g/dL (3.5-5.1); Alkaline Phosphatase 153 U/L (38-126); Anion Gap 9 mmol/L (4-12); Aspartate Amino Transferase 43 U/L (14-36); Bilirubin,Total 0.6 mg/dL (0.2-1.3); Blood Urea Nitrogen 25 mg/dL (7-17); Calcium 9.2 mg/dL (8.4-10.2); Carbon Dioxide 29 mmol/L (22-30); Chloride 98 mmol/L (98-107); Estimated CRCL calculation 66 ml/min; Estimated Glomerular Filt Rate > 60; Glucose 127 mg/dL (65-110); Lipase 331 U/L (23-300); Potassium 4.2 mmol/L (3.4-5.0); Sodium 136 mmol/L (137-145)
[2024-02-28] MEDS: ONDANSETRON INJ 4 MG/2 ML VIAL IV PUSH (13:42)
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
[2024-02-28 13:51] LABS: Add Urine Microscopic? YES; Appearance Urine Clear (Clear); Bacteria Urine None Seen /hpf; Bilirubin Urine Negative (Negative); Blood Urine Negative (Negative); Color Urine Yellow (Yellow); Glucose Urine UA Negative (Negative); Ketones Urine Negative (Negative); Leukocyte Esterase Ur Trace LEU/UL (Negative); Nitrate Urine Negative (Negative); Non Pathogenic Casts 0-2; Protein Urine Negative (Negative); RBC Urine 0-2 /hpf (0-2); Specific Grav Ur 1.022 (1.001-1.035); Squamous Epithelial Cell Urine None Seen /hpf (Few); WBC Urine 0-5 /hpf (0-3); pH Urine 7.5 (5.0-9.0)
== END 2024-02-28 15:01 | disposition home or self-care (01) ==
PROVIDERS: Emergency Provider Emergency Medicine; PCP Family Medicine
DX: R10.13 Epigastric pain (principal); I10 Essential (primary) hypertension; Z87.891 Personal history of nicotine dependence; Z90.49 Acquired absence of other specified parts of digestive tract; Z90.721 Acquired absence of ovaries, unilateral
CPT/HCPCS: 36415; 74177; 80053; 81001; 83605; 83690; 85025; 96374; 99284; J2405; Q9967

== ENCOUNTER 2024-09-03 09:15 | Outpatient (CLI) | payer MEDICARE, SELFPAY ==
--- OUTSIDE RECORDS SUMMARY | 2024-09-03 09:50 | XMS_ITS | Referral Summary ---
Author Organization [facility] Address [address] [place] [address] Care Team Providers Care Hybrid Powertrain Development Engineer Name Role Phone Unavailable Primary Care Provider Unavailabl e Source Comments [facility],non-owned Affiliates and Associated Physician Practices is amultiple site organization consisting of ambulatory clinics and hospital sitesin [place], [place], [place] and [place]. This disclosure is being madepursuant to the Care Everywhere program and may not contain all information available regarding this patient. Last updated 18.[facility] Allergies Active Allergy Reactions Criticality Noted Date Comments Penicillins 09/05/2011 Medications * Be aware that medications may not be up to date on this document. Alwaysverify current medications with the patient. Medication Sig Dispensed Refills Start Date End Date Status promethazine (PHENERGAN) 25 MG tablet Take 25 mg by mouth every 6 hours as needed. She was given a prescription for #20 tablets on 09/01/11. Active hydrocodone-acetami nophen (VICODIN) 5-500 MG tablet Take 1 Tab by mouth every 4 hours as needed. She was given a prescription for #20 tablets on 09/01/11. Active Social History Tobacco Use Types Packs/Day Years Used Date Smoking Tobacco: Former Alcohol Use Standard Drinks/Week Comments Not Asked 0 (1 standard drink = 0.6 oz pur e alcohol) Sex and Gender Information Value Date Recorded Sex Assigned at Not on file Gender Identity Not on file Sexual Orientation Not on file Last Filed Vital Signs Vital Sign Reading Time Taken Comments Blood Pressure 120/80 09/05/2011 12:53 PM ADMISSIONS MANAGER Pulse 72 09/05/2011 12:53 PM ADMISSIONS MANAGER Temperature 36.9 C (98.5 F) 09/05/2011 12:53 PM ADMISSIONS MANAGER Respiratory Rate - - Oxygen Saturation - - Inhaled Oxygen Concentration - - Weight 91.4 kg (201 lb 6.4 oz) 09/05/2011 12:53 PM ADMISSIONS MANAGER Height 167.6 cm (5' 6 ) 09/05/2011 12:53 PM ADMISSIONS MANAGER Body Mass Index 32.51 09/05/2011 12:53 PM ADMISSIONS MANAGER Plan of Treatment Not on file
--- OUTSIDE RECORDS SUMMARY | 2024-09-03 09:50 | XMS_ITS | Patient Health Summary ---
Author Organization [facility] Address [address] [place] [place] [address] Care Team Providers Care Office Messenger Name Role Phone Unavailable Primary Care Provider Unavailabl e Note from [facility],non-owned Affiliates and Associated Physician Practices is amultiple site organization consisting of ambulatory clinics and hospital sitesin [place], [place], [place] and [place]. This disclosure is being madepursuant to the Care Everywhere program and may not contain all information available regarding this patient. Last updated 18.[facility] Allergies * Penicillins Medications * Be aware that medications may not be up to date on this document. Alwaysverify current medications with the patient. * promethazine (PHENERGAN) 25 MG tablet Take 25 mg by mouth every 6 hours as needed. She was given a prescription for #20 tablets on 09/01/11. * hydrocodone-acetaminophen (VICODIN) 5-500 MG tablet Take 1 Tab by mouth every 4 hours as needed. She was given a prescription for #20 tablets on 09/01/11. Social History Tobacco Use Types Packs/Day Years [...] Comments Blood Pressure 120/80 09/05/2011 12:53 PM HALL SUPERVISOR Pulse 72 09/05/2011 12:53 PM HALL SUPERVISOR Temperature 36.9 C (98.5 F) 09/05/2011 12:53 PM HALL SUPERVISOR Respiratory Rate - - Oxygen Saturation - - Inhaled Oxygen Concentration - - Weight 91.4 kg (201 lb 6.4 oz) 09/05/2011 12:53 PM HALL SUPERVISOR Height 167.6 cm (5' 6 ) 09/05/2011 12:53 PM HALL SUPERVISOR Body Mass Index 32.51 09/05/2011 12:53 PM HALL SUPERVISOR Procedures * CT ABDOMEN PELVIS W CONTRAST(Performed 06/25/2014) * US GALLBLADDER(Performed 09/01/2011) Results * CT ABDOMEN AND PELVIS WITH IV CONTRAST (06/25/2014) Anatomical Region Laterality Modality Abdomen, Pelvis Other Provider Unknown CT ORDERABLES * US GALLBLADDER (09/01/2011) Anatomical Region Laterality Modality Other Provider Unknown US ORDERABLES
--- OUTSIDE RECORDS SUMMARY | 2024-09-03 09:50 | XMS_ITS | Clinical Summary ---
Author Organization [facility] Address [address] [place] [address] Care Team Providers Care Document Control Manager Name Role Phone Unavailable Primary Care Provider Unavailabl e Source Comments [facility],non-owned Affiliates and Associated Physician Practices is amultiple site organization consisting of ambulatory clinics and hospital sitesin [place], [place], [place] and [place]. This disclosure is being madepursuant to the Care Everywhere program and may not contain all information available regarding this patient. Last updated 18.[facility] Allergies Active Allergy Reactions Criticality Noted Date [...] Comments Blood Pressure 120/80 09/05/2011 12:53 PM BRANCH SALES AND SERVICE REPRESENTATIVE Pulse 72 09/05/2011 12:53 PM BRANCH SALES AND SERVICE REPRESENTATIVE Temperature 36.9 C (98.5 F) 09/05/2011 12:53 PM BRANCH SALES AND SERVICE REPRESENTATIVE Respiratory Rate - - Oxygen Saturation - - Inhaled Oxygen Concentration - - Weight 91.4 kg (201 lb 6.4 oz) 09/05/2011 12:53 PM BRANCH SALES AND SERVICE REPRESENTATIVE Height 167.6 cm (5' 6 ) 09/05/2011 12:53 PM BRANCH SALES AND SERVICE REPRESENTATIVE Body Mass Index 32.51 09/05/2011 12:53 PM BRANCH SALES AND SERVICE REPRESENTATIVE Plan of Treatment Health Maintenance Due Date Last Done Comments BONE DENSITY TESTING 1950 COLOGUARD (AGES 45-75) - COL ON CA SCREENING 1950 COLON MONITORING 1950 COLONOSCOPY - COLON CA SCREENING 1950 CT COLONOGRAPHY - COLON CA SCREENING 1950 Colorectal Cancer Screening 1950 FIT - COLON CA SCREENING 1950 FLEX SIG - COLON CA SCREENING 1950 LIPID TESTING 1950 MAMMOGRAM 1950 HEPATITIS C SCREENING 03/15/1970 DTAP/TDAP/TD VACCINES (1 - Tdap) 1971 PNEUMOCOCCAL VACCINE 50+ (1 of 1 - PCV) 2002 ZOSTER VACCINE (1 of 2) 2002 COVID-19 VACCINE ( - 2023-2 5 season) 2024 INFLUENZA VACCINE (#1) 2024 DEPRESSION SCREENING 07/02/2024 Respiratory Syncytial Virus (RSV) Vaccine Pt: or over 60 yrs (1 - 1-dose 75+ series) 2027 HEPATITIS B VACCINE Aged Out No longe r eligible based on patient's age to complete this topic HIB VACCINE Aged Out No longer eligi ble based on patient's age to complete this topic HPV VACCINE Aged Out No longer eligi ble based on patient's age to complete this topic MENINGOCOCCAL (Group B) VACCINE Aged Out No longer eligible based on patient's age to complete this topic MENINGOCOCCAL VACCINE Aged Out No urvashi flaco eligible based on patient's age to complete this topic
[2024-09-26 15:45] VITALS: BMI 36.2
--- NOTE | 2024-09-26 15:45 | WPDSLEEPSTUD ---
Sleep Study Date of Study: 09/03/24 Ordering Provider: ZION Mcneill Interpreting Physician: Terrie Aguilar DO Sleep Study Type: Split Polysomnogram Height: 1.65 m Weight: 98.883 kg Body Mass Index: 36.2 Neck Circumference (inches): 15 [place]: 6 Reason for Sleep Study Unrefreshing sleep Sleep History The patient is a 74-year-old female who had a sleep study ordered by the pulmonary group for evaluation of sleep apnea. The patient was previously diagnosed with sleep apnea several years ago and was on CPAP therapy. The patient rarely awakens from sleep short of breath. She occasionally awakens at night with heartburn, belching, or cough. She occasionally snores, and it is occasionally loud enough that others complain. She occasionally has trouble sleeping when she has a cold. She rarely wakes up gasping for air throughout the night. She denies having breathing problems at night observed by herself or others. She denies sweating excessively at night. She rarely has heart palpitations or irregular heartbeats during the night. She occasionally falls asleep during the day but never while driving. She rarely experiences loss of muscle tone when extremely emotional. She denies having trouble at school or work due to sleepiness. She denies sleep paralysis. She rarely experiences vivid dream-like scenes upon awakening or falling asleep. She denies feeling afraid of going to sleep. She denies having nightmares. She denies remembering her dreams. She occasionally has thoughts racing through her mind. She rarely feels sad, depressed, or anxious. She occasionally has muscular tension. She denies noticing parts of her body jerk. She denies kicking during the night. She occasionally has crawling and aching feelings in her legs but rarely has leg pain during the night. She denies grinding her teeth during sleep and denies awakening with morning jaw pain. She is occasionally bothered by pain during the day but rarely awakened by pain during the night. She occasionally wakes up feeling stiff in the morning. She occasionally wakes up with sore or achy muscles. She occasionally wakes up with pain in the neck, spine, and other joints. She goes to bed at 10:30 p.m. on both weekdays and weekends. She is able to fall asleep relatively quickly. She wakes up twice throughout the night to urinate and is able to fall back asleep within 10 minutes. She wakes up between 4:30 to 5:00 a.m. on both weekdays and weekends. She typically gets 4 to 5 hours of sleep per night. She does not stay in bed after waking up in the morning. She currently lives with her brother. She will consume caffeinated beverages within two hours of bedtime. She denies engaging in physical exercise before bedtime. She will watch television before falling asleep. She will take naps in the afternoon or the evening, and they are occasionally refreshing. She consumes four caffeinated beverages per day. She quit smoking cigarettes 35 years ago. She denies alcohol and recreational drug use. [facility] Past Medical History Medical History Earache on right Breast asymmetry between [place] breast and reconstructed breast Radial styloid tenosynovitis [de quervain] Right wrist pain Sinusitis Contact dermatitis Varicose vein of leg Hemorrhoids Insomnia Mumps Hypertension Surgical History Surgical History History of left oophorectomy History of cholecystectomy Family History Family History Mother Cerebrovascular accident Family history of emphysema Family history of diabetes mellitus in first degree relative Family history of type 2 diabetes mellitus Sibling Hypertension Cerebrovascular accident Family history of diabetes mellitus in first degree relative Patient's sister is in good health Father Hypertension Family history of alcoholism Other Diabetes mellitus Family history of allergic disorder Social History Social History Social History: Smoking status: Former smoker Tobacco type: cigarettes Second hand tobacco smoke exposure: No Smoking end date: 07/02/87 Alcohol intake: never Substance use: never Substance use type: does not use Lack of Transportation: No Lack of Food: Never True Current Housing: I Have Housing Concerned About Future Housing: No Difficulty Paying Gas/Electric Bills: No Difficulty Paying for Meds: No Currently Unemployed: No Education: Decline to Answer Difficulty w/ Childcare or Family Care: No Living arrangements: alone Occupation/Education: occupation Gender identity (if verbalized by the patient): Female Sexual Orientation (if Verbalized by the Patient): Straight or Heterosexual Medications Home Medications ?Medication ?Instructions ?Recorded ?Confirmed ?Type loratadine 10 mg tablet (Claritin) 10 mg PO DAILY 02/08/23 09/23/24 History nutritional supplements ea PO 02/08/23 09/23/24 History irbesartan 300 mg tablet See Rx Instructions .Route 04/03/24 09/23/24 Rx .COMPLEX #90 tabs furosemide 20 mg tablet See Rx Instructions .Route 04/07/24 09/23/24 Rx .COMPLEX #90 tabs potassium chloride 10 mEq See Rx Instructions .Route 04/07/24 09/23/24 Rx tablet,extended release .COMPLEX #90 tabs omeprazole 40 mg capsule,delayed 40 mg PO DAILY #90 caps 09/23/24 09/23/24 Rx release Sleep Procedure A full night split study using the [employer] multi-channel system recorded the standard physiologic parameters including EEG, EOG, submentalis EMG, anterior tibialis EMG, EKG, body position, nasal and oral airflow using nasal pressure sensor and thermistor.? Respiratory parameters of chest and abdominal movements were recorded with Respiratory Inductance Plethysmography belts. Oxygen saturation was recorded by pulse oximetry. Video monitoring was also performed. Sleep stages, periodic limb movements, and EEG arousals were scored in 30 second epochs according to the criteria of the AASM Scoring Manual. The Apnea-Hypopnea Index was calculated using CMS guidelines for definition of hypopnea with 4% O2 desaturations while scoring respiratory events. Sleep Architecture During the diagnostic portion of the study, the total recording time was 328.4 minutes. The total sleep time was 134.5 minutes. Sleep latency was 24.9 minutes.? REM sleep was not achieved during this portion of the study. Sleep Efficiency was 41.0%. The patient had 53 awakenings for an awakening index of 23.6. Wake after sleep onset time was 169.0 minutes. The patient spent 16.0 minutes, 11.9% of total sleep time in Stage N1. The patient spent 118.5 minutes, 88.1% in Stage N2. The patient spent 0.0 minutes, 0.0% in Stage N3. The patient spent 0.0 minutes, 0.0% in Stage REM sleep. At 03:15:12 AM the patient was placed on PAP treatment and was titrated at pressures ranging from 5 cm H20 up to 16 cm H20. During the treatment portion of the study, the total recording time was 268.3 minutes.? The total sleep time was 238.0 minutes. Sleep latency was 9.0 minutes. REM latency was 11.0 minutes. Sleep Efficiency was 88.7%. Wake after Sleep Onset time was 21.0 minutes. The patient spent 3.5 minutes, 1.5% of total sleep time in Stage N1. The patient spent 69.5 minutes, 29.2% in Stage N2. The patient spent 79.0 minutes, 33.2% in Stage N3. The patient spent 86.0 minutes, 36.1% in Stage REM. Respiratory Analysis During the diagnostic portion of the study, the patient had 27 hypopneas, 118 obstructive apneas and 2 central apneas for an overall Apnea Hypopnea Index of 65.6 events per hour. The REM Apnea Hypopnea Index was 0. The NREM Apnea Hypopnea Index was 65.6. The patient had a Central Apnea Hypopnea Index of 0.9. There was no evidence of Galen-Dejesus Respirations. During the treatment portion of the study, the patient had 26 hypopneas, 23 obstructive apneas, 1 mixed apnea and 12 central apneas for an overall Apnea Hypopnea Index of 15.6 events per hour. The REM Apnea Hypopnea Index was 12.6. The NREM Apnea Hypopnea Index was 17.4. The patient had a Central Apnea Hypopnea Index of 3.0. There was no evidence of Galen-Dejesus Respirations. The patient was started on CPAP 5 cm H2O and titrated to CPAP 16 cm H2O. The patient was able to fall asleep starting on CPAP 5 cm H2O. The patient was able to achieve REM sleep starting on CPAP 5 cm H2O. The patient was able to achieve a residual AHI less than 5 with both NREM and REM sleep in the supine position on the final pressure setting. On CPAP 16 cm H2O, the patient spent 38.5 minutes in NREM and 30 minutes in REM with 1 obstructive apnea, 1 central apnea and 1 hypopnea, resulting in an AHI of 2.6. The patient had a sleep efficiency of 97.2% on this pressure setting. Arousals During the diagnostic portion of the study, there were a total of 176 arousals for an arousal index of 78.5.? There were 94 respiratory arousals for an index of 41.9. There were 3 periodic limb movement arousals for an index of 1.3.? There were 17 isolated limb movement arousals for an index of 7.6. There were 66 spontaneous arousals for an index of 29.4. During the treatment portion of the study, there were a total of 60 arousals for an index of 15.1.? There were 15 respiratory arousals for an index of 3.8. There were 0 periodic limb movement arousals for an index of 0.? There were 4 isolated limb movement arousals for an index of 1.0. There were 42 spontaneous arousals for an index of 10.6. Periodic Limb Movements During the diagnostic portion of the study, the patient had 25 isolated limb movements with an index of 11.2. The patient had 5 periodic limb movements with an index of 2.2. The patient had a total of 30 limb movements with a total limb movement index of 13.4. During the treatment portion of the study, the patient had 10 isolated limb movements with an index of 2.5. The patient had 4 periodic limb movements with an index of 1.0. The patient had a total of 14 limb movements with a total limb movement index of 3.5. Oximetry Data During the diagnostic portion of the study, the patient had an average oxygen saturation of 96% in wake with a minimum oxygen saturation of 89% and a maximum oxygen saturation of 99%. The patient had an average oxygen saturation of 96.1% in sleep with a minimum oxygen saturation of 89.0% and a maximum oxygen saturation of 100.0%. The patient had 78 oxygen desaturations resulting in an Oxygen Desaturation Index of 34.8. The patient spent 0 minutes of total sleep time with an oxygen saturation less than 88%. During the treatment portion of the study, the patient had an average oxygen saturation of 97.2% in wake with a minimum oxygen saturation of 77.0% and a maximum oxygen saturation of 99.0%. The patient had an average oxygen saturation of 93.6% in sleep with a minimum oxygen saturation of 59.0% and a maximum oxygen saturation of 99.0%. The patient had 39 oxygen desaturations resulting in an Oxygen Desaturation Index of 9.8. The patient spent 14.8 minutes, 2.5% of total sleep time with an oxygen saturation less than 88%. Snoring Profile Mild to moderate snoring was present in the baseline portion of this study. The snoring resolved once the patient was titrated to 16 cm H2O. Cardiac Profile The EKG lead showed normal sinus rhythm. No arrhythmias or premature beats were seen. During the diagnostic portion of the study, the average pulse rate was 67.0 bpm.? The minimum pulse rate was 57.0 bpm. The maximum pulse rate was 80.0 bpm. During the treatment portion of the study, the average pulse rate was 61.1 bpm.? The minimum pulse rate was 50.0 bpm. The maximum pulse rate was 85.0 bpm. EEG Profile No signs of seizure activity seen. Assessment and Plan Assessment and Plan (1) GARRET (obstructive sleep apnea): Code(s): G47.33 - Obstructive sleep apnea (adult) (pediatric) Status: Acute Assessment and Plan: The patient had an overall AHI of 65.6 with desaturation down to 89%. This is consistent with severe sleep apnea. The patient was started on CPAP 5 cm H2O and titrated to CPAP 16 cm H2O. The patient's sleep apnea resolved on the final pressure setting with a high sleep efficiency. I recommend that the patient be prescribed Resmed CPAP at 16 cm H2O, size medium Resmed AirFit F20 FFM, CPAP filters/tubing and heated humidity. This should be used with all episodes of sleep.? Compliance should be reviewed within 31-90 days of starting therapy for usage greater than 4 hours per night greater than 70% of the nights. The patient should be asked about symptoms such as?excessive daytime sleepiness, quality of sleep, decreased nocturia, increased?mental functioning such as memory, mood, and concentration. Data The data obtained during this sleep study is adequate for interpretation. Certification This sleep study has been reviewed by a board certified sleep medicine physician.
== END 2024-09-04 08:13 | disposition home or self-care (01) ==
LOC: ANHCSM 09:15
PROVIDERS: PCP Family Medicine; Visit Provider Physician Assistant
DX: G47.33 Obstructive sleep apnea (adult) (pediatric) (principal); I10 Essential (primary) hypertension; F39 Unspecified mood [affective] disorder
CPT/HCPCS: 95811

== ENCOUNTER 2024-09-27 20:58 | Inpatient (IN) | payer MEDICARE, SELFPAY ==
--- NOTE | ~2024-09-27 | XR_ITS ---
CHEST RADIOGRAPH, PA AND LATERAL CLINICAL HISTORY: Chest pain . COMPARISON: 08/13/2023 TECHNIQUE: PA and lateral views of the chest. FINDINGS The cardiomediastinal silhouette is unremarkable. The lungs are clear. Visualized osseous structures and soft tissues are unremarkable. IMPRESSION: No focal infiltrate or effusion. Reviewed, dictated and finalized at location A.
--- NOTE | 2024-09-27 21:00 | ECG_ITS ---
Test Date: 2024-09-27 21:24:46 Measurements Intervals [place] Rate: 67 P: 57 [place]: 170 QRS: 21 QRSD: 113 T: 38 QT: 375 QTc: 397 Interpretive Statements SINUS RHYTHM LOW QRS VOLTAGE IN PRECORDIAL LEADS [QRS DEFLECTION < 1.0 mV IN CHEST LEADS] MODERATE INTRAVENTRICULAR CONDUCTION DELAY [110+ ms QRS DURATION] ABNORMAL ECG Electronically Signed On 09-28-2024 07:41:14 CDT by Derek Daigle M.D.
--- OUTSIDE RECORDS SUMMARY | 2024-09-27 21:01 | XMS_ITS | Clinical Summary ---
Author Organization [facility] Address [address] [place] [address] Care Team Providers Care Tack Maker Name Role Phone Unavailable Primary Care Provider Unavailabl e Source Comments [facility],non-owned Affiliates and Associated Physician Practices is amultiple site organization consisting of ambulatory clinics and hospital sitesin [place], [place], [place] and [place]. This disclosure is being madepursuant to the Care Everywhere program and may not contain all information available regarding this patient. Last updated 18.[facility] Allergies Active Allergy Reactions Criticality Noted Date [...] Comments Blood Pressure 120/80 09/05/2011 12:53 PM GLUE JOINTER OPERATOR Pulse 72 09/05/2011 12:53 PM GLUE JOINTER OPERATOR Temperature 36.9 C (98.5 F) 09/05/2011 12:53 PM GLUE JOINTER OPERATOR Respiratory Rate - - Oxygen Saturation - - Inhaled Oxygen Concentration - - Weight 91.4 kg (201 lb 6.4 oz) 09/05/2011 12:53 PM GLUE JOINTER OPERATOR Height 167.6 cm (5' 6 ) 09/05/2011 12:53 PM GLUE JOINTER OPERATOR Body Mass Index 32.51 09/05/2011 12:53 PM GLUE JOINTER OPERATOR Plan of Treatment Health Maintenance Due Date [...] to complete this topic MENINGOCOCCAL (Group B) VACC INE SHARED DECISION-MAKING Aged Out No longer eligibl e based on patient's age to complete this topic MENINGOCOCCAL GROUPS A/C/Y/W VACCINE Aged Out No longer eligible b ased on patient's age to complete this topic
[2024-09-27 21:15] VITALS: BP 144/65; PULSE 85; RESP 16; TEMP 36.3; O2SAT 97
[2024-09-27 21:31] LABS: Basophils Percent Auto 0.4 % (0.2-1.2); Eosinophils Absolute Auto 0.3 K/mm3 (0-0.3); Hematocrit 33.3 % (37.0-47.0); Immature Granulocyte Absolute 0.03 K/mm3 (0.00-0.031); Immature Granulocyte Percent A 0.4 % (0-0.5); Lymphocytes Absolute Auto 1.68 K/mm3 (0.9-3.2); Lymphocytes Percent Auto 24.1 % (18.3-44.2); Mean Corpuscular Hemoglobin 30.1 pg (26-34); Monocytes Absolute Auto 0.5 K/mm3 (0.1-0.6); Monocytes Percent Auto 7.2 % (2.6-8.5); Neutrophils Absolute Auto 4.5 K/mm3 (1.3-6.7); Neutrophils Percent Auto 63.9 % (45.5-73.1); Platelet Count Result 306 k/mm3 (150-375); Red Blood Count 3.66 M/mm3 (4.2-5.4); Red Cell Distribution Width 12.4 % (11.5-14.5)
[2024-09-27 21:49] LABS: Alanine Aminotransferase 17 U/L (6-35); Albumin Level 4.2 g/dL (3.5-5.1); Alkaline Phosphatase 161 U/L (38-126); Anion Gap 9 mmol/L (4-12); Aspartate Amino Transferase 29 U/L (14-36); Bilirubin,Total 0.5 mg/dL (0.2-1.3); Blood Urea Nitrogen 24 mg/dL (7-17); Calcium 8.9 mg/dL (8.4-10.2); Carbon Dioxide 26 mmol/L (22-30); Chloride 101 mmol/L (98-107); Estimated CRCL calculation 67 ml/min; Estimated Glomerular Filt Rate > 60; Glucose 116 mg/dL (65-110); Lipase 99 U/L (23-300); Potassium 4.2 mmol/L (3.4-5.0); Sodium 136 mmol/L (137-145)
[2024-09-27 22:01] LABS: Troponin I 0.015 ng/mL (0.000-0.034)
[2024-09-27 22:15] VITALS: PULSE 75
[2024-09-27 22:16] VITALS: BP 130/68; PULSE 73; RESP 16; TEMP 37; O2SAT 100
[2024-09-27 22:17] VITALS: O2SAT 100
[2024-09-27 22:17] LABS: INR 0.9; Prothrombin Time 13.1 Seconds (11.1-14.7)
[2024-09-27 22:18] LABS: Partial Thromboplastin Time 27.5 Seconds (22.3-36.8)
--- OUTSIDE RECORDS SUMMARY | 2024-09-27 22:59 | XMS_ITS | Clinical Summary ---
Author Organization [facility] Address [address] [address] Care Team Providers Care Paint Line Operator Name Role Phone Unavailable Primary Care Provider Unavailabl e Source Comments [facility],non-owned Affiliates and Associated Physician Practices is amultiple site organization consisting of ambulatory clinics and hospital sitesin [place], [place], [place] and [place]. This disclosure is being madepursuant to the Care Everywhere program and may not contain all information available regarding this patient. Last updated 18.[facility] Allergies Active Allergy Reactions Criticality Noted Date [...] Comments Blood Pressure 120/80 09/05/2011 12:53 PM ONCOLOGY REP Pulse 72 09/05/2011 12:53 PM ONCOLOGY REP Temperature 36.9 C (98.5 F) 09/05/2011 12:53 PM ONCOLOGY REP Respiratory Rate - - Oxygen Saturation - - Inhaled Oxygen Concentration - - Weight 91.4 kg (201 lb 6.4 oz) 09/05/2011 12:53 PM ONCOLOGY REP Height 167.6 cm (5' 6 ) 09/05/2011 12:53 PM ONCOLOGY REP Body Mass Index 32.51 09/05/2011 12:53 PM ONCOLOGY REP Plan of Treatment Health Maintenance Due Date [...] on patient's age to complete this topic Rosa Tuttle Personal/Family Self 1950 [address] [place] [address]
[2024-09-27 23:31] VITALS: BP 122/58; PULSE 76; RESP 13
[2024-09-28] VITALS (30 sets, daily range): BP systolic 105–154; BP diastolic 51–66; PULSE 62–79; RESP 11–19; TEMP 36.3–36.6; O2SAT 95–100; BMI 35.4
--- NOTE | 2024-09-28 | ECG_ITS ---
Test Date: 2024-09-28 03:17:39 Measurements Intervals [place] Rate: 67 P: 64 [place]: 187 QRS: 36 QRSD: 83 T: 43 QT: 386 QTc: 408 Interpretive Statements SINUS RHYTHM LOW QRS VOLTAGE IN PRECORDIAL LEADS [QRS DEFLECTION < 1.0 mV IN CHEST LEADS] ABNORMAL ECG Electronically Signed On 09-28-2024 07:42:59 CDT by Derek Daigle M.D.
[2024-09-28 00:31] LABS: Troponin I 0.031 ng/mL (0.000-0.034)
--- NOTE | 2024-09-28 02:12 | ED.GENADULT ---
HPI - General Adult General Chief complaint: Chest Pain Stated complaint: Chest pain x 1-2 months, worse today Time Seen by Provider: 09/27/24 22:47 History of Present Illness HPI narrative: This is a 74-year-old female presenting ED for chest pain. Patient states that over the last month she has been having intermittent chest pain. It has been in the center of her chest and feels like a twisting sensation. It radiates to her jaw. It is moderate intensity. It only occurs during exercise (going up stairs) and resolves with rest. She has never had pain like this before. Related Data Home Medications ?Medication ?Instructions ?Recorded ?Confirmed ?Last Taken ?Type loratadine 10 mg tablet (Claritin) 10 mg PO DAILY 02/08/23 09/23/24 Unknown History nutritional supplements ea PO 02/08/23 09/23/24 Unknown History Allergies Allergy/AdvReac Type Severity Reaction Status Date / Time Penicillins Allergy Unknown Hives Verified 09/23/24 08:30 PMFSH Past Medical History Medical History Earache on right Breast asymmetry between [place] breast and reconstructed breast Radial styloid tenosynovitis [de quervain] Right wrist pain Sinusitis Contact dermatitis Varicose vein of leg Hemorrhoids Insomnia Mumps Hypertension Surgical History Surgical History History of left oophorectomy History of cholecystectomy Family History Family History Mother Cerebrovascular accident Family history of emphysema Family history of diabetes mellitus in first degree relative Family history of type 2 diabetes mellitus Sibling Hypertension Cerebrovascular accident Family history of diabetes mellitus in first degree relative Patient's sister is in good health Father Hypertension Family history of alcoholism Other Diabetes mellitus Family history of allergic disorder Social History Social History Social History: Smoking status: Former smoker Tobacco type: cigarettes Second hand tobacco smoke exposure: No Smoking end date: 07/02/87 Alcohol intake: never Substance use: never Substance use type: does not use Lack of Transportation: No Lack of Food: Never True Current Housing: I Have Housing Concerned About Future Housing: No Difficulty Paying Gas/Electric Bills: No Difficulty Paying for Meds: No Currently Unemployed: No Education: Decline to Answer Difficulty w/ Childcare or Family Care: No Living arrangements: alone Occupation/Education: occupation Gender identity (if verbalized by the patient): Female Sexual Orientation (if Verbalized by the Patient): Straight or Heterosexual Exam Narrative: APPEARANCE: No apparent distress. Head: atraumatic. EYES: EOMI, NOSE: Atraumatic NECK: Trachea midline RESPIRATORY: No increased rate of breathing CTAB CARDIOVASCULAR: RRR, +2 pitting edema which patient says is chronic ABDOMINAL: Non-distended soft nontender no guarding rebound MUSCULOSKELETAl: No obvious deformities NEURO: Alert. Moving 4/4 extremities SKIN:: Warm, dry. Normal color PSYCHIATRIC: Normal affect Course Vital Signs Vital signs: Vital Signs Temperature 97.4 F L 09/27/24 21:15 Pulse Rate 85 09/27/24 21:15 Respiratory Rate 16 09/27/24 21:15 Blood Pressure 144/65 H 09/27/24 21:15 Pulse Oximetry 97 09/27/24 21:15 Oxygen Delivery Room Air 09/27/24 21:15 Temperature 98.6 F 09/27/24 22:16 Pulse Rate 68 09/28/24 03:04 Respiratory Rate 12 09/28/24 03:04 Blood Pressure 137/60 09/28/24 00:01 Pulse Oximetry 100 09/28/24 03:04 Oxygen Delivery Room Air 09/27/24 22:17 Medical Decision Making [facility] Narrative Medical decision making narrative: -Course: 74-year-old female presenting with exertional chest pain that resolves with rest. She is currently chest pain-free. Troponin 0.015 -> .031. EKG without ischemic changes. Chest x-ray clear rest her laboratory studies within normal limits. Heart score 5. Patient has no history of cardiac disease and has never seen a stripper black and white. Patient will be admitted hospital for cardiac evaluation. -DDX includes but is not limited to: Angina, unstable angina, NSTEMI, pneumonia, PE -Co-morbidities complicating care: Hypertension Vital Signs Vital Signs: Vital Signs Temperature 97.4 F L 09/27/24 21:15 Pulse Rate 85 09/27/24 21:15 Respiratory Rate 16 09/27/24 21:15 Blood Pressure 144/65 H 09/27/24 21:15 Pulse Oximetry 97 09/27/24 21:15 Oxygen Delivery Room Air 09/27/24 21:15 Temperature 98.6 F 09/27/24 22:16 Pulse Rate 68 09/28/24 03:04 Respiratory Rate 12 09/28/24 03:04 Blood Pressure 137/60 09/28/24 00:01 Pulse Oximetry 100 09/28/24 03:04 Oxygen Delivery Room Air 09/27/24 22:17 Lab Data 09/27/24 21:22 09/27/24 21:22 Labs: Lab Results 09/27/24 09/28/24 09/28/24 Range/Units 21:22 00:02 03:03 WBC 7.0 (4.5-10.0) K/mm3 RBC 3.66 L (4.2-5.4) M/mm3 Hgb 11.0 L (12.0-15.0) g/dL Hct 33.3 L (37.0-47.0) % MCV 91.0 (80-100) fl MCH 30.1 (26-34) pg MCHC 33.0 (32-36) g/dl RDW 12.4 (11.5-14.5) % Plt Count 306 (150-375) k/mm3 MPV 10.0 (7.4-10.4) fl Immature Gran % (Auto) 0.4 (0-0.5) % Neut % (Auto) 63.9 (45.5-73.1) % Lymph % (Auto) 24.1 (18.3-44.2) % [place] % (Auto) 7.2 (2.6-8.5) % Eos % (Auto) 4.0 (0-4.4) % Baso % (Auto) 0.4 (0.2-1.2) % Lymph # (Auto) 1.68 (0.9-3.2) K/mm3 [place] # (Auto) 0.5 (0.1-0.6) K/mm3 Eos # (Auto) 0.3 (0-0.3) K/mm3 Baso # (Auto) 0.0 (0.0-0.1) K/mm3 Abs Immat Gran (auto) 0.03 (0.00-0.031) K/mm3 Absolute Neuts (auto) 4.5 (1.3-6.7) K/mm3 Absolute Nucleated RBC 0.000 (0.0-0.012) K/mm3 Nucleated RBC % 0.0 (0.0-0.2) % PT 13.1 (11.1-14.7) Seconds INR 0.9 APTT 27.5 (22.3-36.8) Seconds Sodium 136 L (137-145) mmol/L Potassium 4.2 (3.4-5.0) mmol/L Chloride 101 (98-107) mmol/L Carbon Dioxide 26 (22-30) mmol/L Anion Gap 9 (4-12) mmol/L BUN 24 H (7-17) mg/dL Creatinine 0.75 (0.7-1.0) mg/dL Estim Creat Clear Calc 67 ml/min Estimated GFR > 60 (59 - ) Glucose 116 H (65-110) mg/dL Calcium 8.9 (8.4-10.2) mg/dL Total Bilirubin 0.5 (0.2-1.3) mg/dL AST 29 (14-36) U/L ALT 17 (6-35) U/L Alkaline Phosphatase 161 H (38-126) U/L Troponin I 0.015 0.031 D 0.044 H* D (0.000-0.034) ng/mL Total Protein 7.0 (6.3-8.2) g/dL Albumin 4.2 (3.5-5.1) g/dL Lipase 99 (23-300) U/L Discharge Plan Discharge Clinical Impression: Angina pectoris Patient Disposition: Still a Patient Condition: Stable Patient Language: Mohawk Prescriptions: No Action furosemide 20 mg tablet See Rx Instructions .ROUTE .COMPLEX Qty: 90 2RF Dose Instruction: TAKE 1 TABLET BY MOUTH IN THE MORNING NEEDED FOR EDEMA Rx Instructions: TAKE 1 TABLET BY MOUTH IN THE MORNING NEEDED FOR EDEMA potassium chloride 10 mEq tablet extended release See Rx Instructions .ROUTE .COMPLEX Qty: 90 2RF Dose Instruction: TAKE 1 TABLET BY MOUTH ONCE DAILY NEEDED (TO BE TAKEN WHEN FUROSEMIDE IS TAKEN) Rx Instructions: TAKE 1 TABLET BY MOUTH ONCE DAILY NEEDED (TO BE TAKEN WHEN FUROSEMIDE IS TAKEN) omeprazole 40 mg capsule,delayed release(DR/EC) 40 mg PO DAILY Qty: 90 1RF loratadine [Claritin] 10 mg tablet 10 mg PO DAILY nutritional supplements Powder PO irbesartan 300 mg tablet See Rx Instructions .ROUTE .COMPLEX Qty: 90 1RF Dose Instruction: Take 1 tablet by mouth once daily Rx Instructions: Take 1 tablet by mouth once daily Follow-up/Referrals: UNKNOWN,DOCTOR [Primary Care Provider] - Quality HEART score for chest pain patients History: highly suspicioius ECG: normal Age: > or = to 65 years Risk factors: 1 or 2 risk factors Troponin: < or = to 1x normal limit Heart score: 5
--- NOTE | 2024-09-28 02:57 | ECG_ITS ---
Test Date: 2024-09-28 00:03:48 Measurements Intervals [place] Rate: 70 P: 57 MI: 156 QRS: 35 QRSD: 76 T: 44 QT: 372 QTc: 403 Interpretive Statements SINUS RHYTHM LOW QRS VOLTAGE IN PRECORDIAL LEADS [QRS DEFLECTION < 1.0 mV IN CHEST LEADS] ABNORMAL ECG Electronically Signed On 09-28-2024 07:42:13 CDT by Derek Daigle M.D.
[2024-09-28 03:33] LABS: Troponin I 0.044 ng/mL (0.000-0.034)
--- NOTE | 2024-09-28 04:15 | PC.NURSE ---
This patient, Rosa Tuttle, was admitted to IMU Room 205-01. Patient/family oriented to hospital policies and general routines including ID bracelet, bed and alarms, visiting hours, pain management, procedures, bathroom and other care routines, personal items, smoking policy, room service/diet, and visiting hours. Information on how to activate the Rapid Response Team has been discussed. Patient/Family are encouraged to report perceived risks to care and to ask questions if they do not understand what they are told or what they should do.
--- NOTE | 2024-09-28 05:00 | PM.IMHP ---
H&P: HPI History of Present Illness Date/Time: 09/28/24 05:00 Chief Complaint: Chest pain Narrative: 74-year-old female with past medical history of obesity, severe obstructive sleep apnea, diastolic dysfunction, mild aortic stenosis, essential hypertension and GERD who presented to the ER with central chest pain that is been occurring with activity for last month or so. She reports that the chest pain was occasional with activity but as time progressed it became she persistent with any activity even minimal activity. The pain was substernal in nature and radiated up to her neck and jaw. It felt like something was squeezing or twisting her heart. The pain would resolve after she would sit down for several minutes and rest. The pain was a 9 or 10 out of 10 in intensity. She has reported that over the last week or so that the pain is been waking her from sleep and is bad enough that she cannot fall back asleep. She did have recent sleep study that demonstrated severe obstructive sleep apnea but she has not yet received her home CPAP. she has chronic lower extremity edema that is worse at the end of the day. She had an outpatient echocardiogram in July which demonstrated grade 1 diastolic dysfunction with preserved ejection fraction and mild aortic stenosis. She has not had a recurrence of chest pain since arriving to IMU. Review of Systems Review of Systems: 12 systems were reviewed with pertinent positives and negatives per HPI. Except as documented in the HPI, all other systems were reviewed and are negative. she reports chronic neck pain and takes ibuprofen for this at home. [facility] Past Medical History Medical History (Updated 09/28/24 @ 05:06 by Tish Girard DO) Diastolic dysfunction Echocardiogram July 2024: EF of 65-70%, mildly increased left ventricular wall thickness, diastolic dysfunction grade 1, E/E mildly elevated 12, global longitudinal strain is-21, moderate aortic valve sclerosis, mild aortic valve stenosis valve area of 1.9 Mild aortic stenosis Venous (peripheral) insufficiency Severe obstructive sleep apnea Polysomnogram 09/26/2024 recommended CPAP of 16 Pre-diabetes Breast asymmetry between [place] breast and reconstructed breast Radial styloid tenosynovitis [de quervain] Sinusitis Contact dermatitis Varicose vein of leg Hemorrhoids Mumps Hypertension Surgical History Surgical History History of left oophorectomy History of cholecystectomy Family History Family History (Updated 09/28/24 @ 08:01 by Tish Girard DO) Mother , of complications of diabetes at age 84 Cerebrovascular accident Diabetes mellitus Emphysema lung Sibling Hypertension Cerebrovascular accident Diabetes mellitus Acute myocardial infarction, Onset Age: 60 Father Hypertension Alcoholism Heart disease, Onset Age: 70 Other Family history of allergic disorder Social History Social History (Updated 09/28/24 @ 08:04 by Tish Girard DO) Social History: She is she lives in her own home. she has 1 son. Her brother lives with her. She is a former smoker she smoked 3 packs per day for about 20 years but quit smoking at the age of 39. 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 Code status: Full code Surrogate decision maker: Donald Borja (son) Smoking packs per day: 3 Smoking cigarettes per day: 60.0 Years smoked: 20 Smoking pack-years: 60.00 Smoking status: Former smoker Tobacco type: cigarettes Second hand tobacco smoke exposure: No Smoking end date: 07/02/89 Alcohol intake: former Alcohol use details: She used to drink alcohol on occasion but has not done so in many years. Substance use: former Substance use type: marijuana Last use: 1974 Do You Feel Safe in your Home?: Yes Lack of Transportation: No Lack of Food: Never True Current Housing: I Have Housing Concerned About Future Housing: No Difficulty Paying Gas/Electric Bills: No Difficulty Paying for Meds: No Currently Unemployed: YES Education: Decline to Answer Difficulty w/ Childcare or Family Care: No Living arrangements: alone Occupation/Education: occupation Gender identity (if verbalized by the patient): Female Sexual Orientation (if Verbalized by the Patient): Straight or Heterosexual Spiritual care concerns: No Meds Home Medications and Allergies Home Medications ?Medication ?Instructions ?Recorded ?Confirmed ?Type loratadine 10 mg tablet (Claritin) 10 mg PO DAILY 02/08/23 09/28/24 History irbesartan 300 mg tablet See Rx Instructions .Route 04/03/24 09/28/24 Rx .COMPLEX #90 tabs furosemide 20 mg tablet See Rx Instructions .Route 04/07/24 09/28/24 Rx .COMPLEX #90 tabs potassium chloride 10 mEq See Rx Instructions .Route 04/07/24 09/28/24 Rx tablet,extended release .COMPLEX #90 tabs omeprazole 40 mg capsule,delayed 40 mg PO DAILY #90 caps 09/23/24 09/28/24 Rx release elderberry fruit 200 mg capsule See Rx Instructions PO .COMPLEX 09/28/24 09/28/24 History ibuprofen 800 mg tablet (IBU) 800 mg PO Q6H PRN pain 09/28/24 09/28/24 History multivitamin (Daily Multi-Vitamin 1 tablet PO DAILY 09/28/24 09/28/24 History tablet) vit C 30 mg-s.hernandez 250 mg-celery 1 cap PO DAILY 09/28/24 09/28/24 History seed 75 mg-grape seed extrt capsule (Tart Hernandez) Allergies Allergy/AdvReac Type Severity Reaction Status Date / Time Penicillins Allergy Unknown Hives Verified 09/28/24 04:45 Vital Signs Vital Signs - 24 hr 09/27/24 21:15 09/27/24 22:15 09/27/24 22:16 Temperature 97.4 F L Pulse Rate 85 75 Respiratory Rate 16 Blood Pressure 144/65 H Pulse Oximetry 97 100 Oxygen Delivery Room Air Room Air 09/27/24 22:16 09/27/24 22:17 09/27/24 23:31 Temperature 98.6 F Pulse Rate 73 76 Respiratory Rate 16 13 Blood Pressure 130/68 122/58 L Pulse Oximetry 100 100 Oxygen Delivery Room Air 09/28/24 00:01 09/28/24 00:02 09/28/24 02:00 Temperature Pulse Rate 73 71 67 Respiratory Rate 13 12 13 Blood Pressure 137/60 Pulse Oximetry 98 100 100 Oxygen Delivery 09/28/24 02:15 09/28/24 02:30 09/28/24 02:45 Temperature Pulse Rate 71 70 68 Respiratory Rate 13 12 11 L Blood Pressure Pulse Oximetry 98 99 100 Oxygen Delivery 09/28/24 03:00 09/28/24 03:04 09/28/24 03:07 Temperature Pulse Rate 68 68 71 Respiratory Rate 19 12 11 L Blood Pressure 122/60 Pulse Oximetry 100 100 100 Oxygen Delivery 09/28/24 03:16 09/28/24 03:31 09/28/24 03:46 Temperature Pulse Rate 66 68 74 Respiratory Rate 12 14 11 L Blood Pressure 131/62 128/64 139/64 Pulse Oximetry 100 100 100 Oxygen Delivery Exam Narrative: Weight 98.4 kg BMI 37.2 Const: Other: No acute distress, obese, appears stated age HENMT: Other: Mucous membranes are tacky, no oral pharyngeal erythema, edentulous in upper jaw, lower draws multiple missing teeth with remainder of dentition fair to poor Eyes: Other: pupils are equal and reactive, no scleral icterus, no conjunctival pallor Neck: Other: large neck circumference, no JVD, no lymphadenopathy Resp: Other: clear to auscultation bilaterally, no increased work of breathing Cardio: Other: regular rate, regular rhythm, 2+ bilateral radial pedal pulses, 2/6 systolic murmur GI: Other: soft, nontender, nondistended, positive bowel sounds Skin: Other: no jaundice, no pallor Neuro: Other: alert oriented, speech is clear, no facial asymmetry, no localizing neurologic deficits noted during the course of conversation Extrem: Other: traced to 1+ edema bilateral lower extremities to the midcalf, tenderness to palpation of the right lower extremity which patient reports is chronic Psych: Other: appropriate mood and affect, pleasant and cooperative, judgment and insight intact H&P: Results Labs Labs: Laboratory Tests 09/27/24 21:22 09/27/24 21:22 09/27/24 09/28/24 09/28/24 21:22 00:02 03:03 WBC 7.0 RBC 3.66 L Hgb 11.0 L Hct 33.3 L MCV 91.0 MCH 30.1 MCHC 33.0 RDW 12.4 Plt Count 306 MPV 10.0 Immature Gran % (Auto) 0.4 Neut % (Auto) 63.9 Lymph % (Auto) 24.1 [place] % (Auto) 7.2 Eos % (Auto) 4.0 Baso % (Auto) 0.4 Lymph # (Auto) 1.68 [place] # (Auto) 0.5 Eos # (Auto) 0.3 Baso # (Auto) 0.0 Abs Immat Gran (auto) 0.03 Absolute Neuts (auto) 4.5 Absolute Nucleated RBC 0.000 Nucleated RBC % 0.0 PT 13.1 INR 0.9 APTT 27.5 Sodium 136 L Potassium 4.2 Chloride 101 Carbon Dioxide 26 Anion Gap 9 BUN 24 H Creatinine 0.75 Estim Creat Clear Calc 67 Estimated GFR > 60 Glucose 116 H Calcium 8.9 Total Bilirubin 0.5 AST 29 ALT 17 Alkaline Phosphatase 161 H Troponin I 0.015 0.031 D 0.044 H* D Total Protein 7.0 Albumin 4.2 Lipase 99 Chest x-ray: No acute cardiopulmonary process on my review radiologic interpretation pending Assessment and Plan Assessment and plan (1) Angina pectoris: Code(s): I20.9 - Angina pectoris, unspecified Status: Acute (2) Non-STEMI (non-ST elevated myocardial infarction): Code(s): I21.4 - Non-ST elevation (NSTEMI) myocardial infarction Status: Acute (3) Severe obstructive sleep apnea: Code(s): G47.33 - Obstructive sleep apnea (adult) (pediatric) Status: Acute Plan Patient had anginal chest pain and 3rd sets troponins did come minimally elevated consistent with non-STEMI. Cardiology has been consulted. Patient will be started on 81 mg aspirin daily. Will check a fasting lipid panel. Will place patient on therapeutic Lovenox 1 milligram/kilogram q.12 hours. Patient's blood pressures are stable and well controlled will resume home antihypertensives. Will order home CPAP. Will continue to monitor patient in IMU and will check an additional set of troponins with the patient's lipid panel this a.m.. Patient has been admitted as observation status. Quality VTE Prophylaxis VTE prophylaxis: pharmacologic ordered (Therapeutic Lovenox) Hospitalist [facility] Advance Care Plan I have confirmed that the patient's Advanced Care Plan is present, code status is documented, or surrogate decision maker is listed in patient medical record.: Yes Medication Reconciliation I have utilized all available resources to obtain, update and review the patients current medications (includes all prescriptions, OTC, herbals, cannabis, and nutritional supplements).: Yes
[2024-09-28 05:28] LABS: Cholesterol 158 mg/dL (0-200); HDL Direct 47 mg/dL; Triglycerides 64 mg/dL (<150)
[2024-09-28 05:39] LABS: LDL Cholesterol Direct 73 mg/dL
[2024-09-28 05:47] LABS: Troponin I 0.067 ng/mL (0.000-0.034)
--- NOTE | 2024-09-28 06:28 | PCRCNOTE ---
Patient's recent sleep study resulted in CPAP +16 cmH2O, FFM Med, + humidity. RT provided Hospital [facility] for use until DME delivers her new Home unit. Patient instructed to practice wearing the CPAP during the daytime to train the brain for better tolerance at night.
[2024-09-28] MEDS: IRBESARTAN 150 MG TABLET 300 MG PO (06:29)
[2024-09-28] MEDS: ENOXAPARIN 100 MG/ML SYRINGE 98 MG SUB-Q ×2 (06:29→17:54)
[2024-09-28] MEDS: PANTOPRAZOLE 40 MG TABLET PO ×2 (09:24→21:31)
[2024-09-28] MEDS: ASPIRIN 81 MG ENTERIC TABLET PO (09:24)
[2024-09-28] MEDS: LORATADINE 10 MG TABLET PO (09:24)
[2024-09-28] MEDS: MULTIVITAMINS THERAPEUTIC TAB (*BKC) 1 TABLET PO (09:24)
--- NOTE | 2024-09-28 11:21 | P.CONCA_ITS ---
Assessment and Plan Assessment and plan (1) Non-STEMI (non-ST elevated myocardial infarction): Code(s): I21.4 - Non-ST elevation (NSTEMI) myocardial infarction Status: Acute Assessment and Plan: Patient has chest pain classic for angina. Troponins have turned positive and this is consistent with an ACS in the form of a non ST elevation myocardial infarction. She has received Doxil apparent. 1 milligram/kilogram subQ q.12 hours. Will hold tomorrow's a.m. dose. Continue aspirin. Will check a lipid panel. Will start her on atorvastatin 40 mg daily. NPO after midnight for cardiac catheterization tomorrow. Will start metoprolol 25 mg p.o. b.i.d.. 2D echocardiogram with Doppler both because the non-STEMI as well as her murmur. Continue irbesartan (2) Cardiac murmur: Code(s): R01.1 - Cardiac murmur, unspecified Status: Acute Assessment and Plan: Likely at least mild aortic stenosis. Will order an echo (3) HTN (hypertension): Qualifiers: Hypertension type: primary hypertension Qualified Code(s): I10 - Essential (primary) hypertension Code(s): I10 - Essential (primary) hypertension Status: Acute Assessment and Plan: Continue irbesartan. Adding metoprolol. (4) GARRET (obstructive sleep apnea): Code(s): G47.33 - Obstructive sleep apnea (adult) (pediatric) Status: Acute Assessment and Plan: RT to set up CPAP History of Present Illness History of Present Illness Consult date/time: 09/28/24 11:21 Requesting physician: Ayad Perez MD Consult reason: chest pain Reason For Visit: Chest pain Narrative: Date of service 09/28/2024: Chest pain Requesting provider: Dr. Perez Reason for consultation: Chest pain History patient is a 74-year-old female who has a history of sleep apnea, aortic stenosis, hypertension, GERD and obesity he presented to hospital with a month of exertional chest pain. Patient has been having some exertional chest discomfort over the past month or so that would improve with minutes. Yesterday however she went to the movies in simply walking up steps to the movie theater she started developed some chest pain. Chest pain felt as if his fist is pushing on her chest and squeezing. She sat down her symptoms resolved. She got up and walked out of the theater and her symptoms return. It did not last for several minutes until she sat down and gradually the pain would subside. Discomfort did radiate up into her jaw. She went home and walking inside the house and up a couple of steps she redeveloped symptoms at that point she called her brother who brought her to the hospital for further workup and evaluation. Her troponins initially were negative but the AF since turned slightly positive. She is currently pain-free. She had no associated symptoms. In general she has no syncope, paroxysmal nocturnal dyspnea, orthopnea. She has some baseline swelling which is not new or different. She has a known history of a murmur. Review of Systems 2 Review of Systems: All systems reviewed & are unremarkable except as noted in HPI and below Constitutional: Constitutional: Denies body ache(s) Eyes: Eyes: Denies blurry vision ENT: Reports Normal hearing present Cardiovascular: Cardiovascular: Reports chest pain Respiratory: Respiratory: Denies hemoptysis Gastrointestinal: Gastrointestinal: Denies abdominal pain Genitourinary: Genitourinary: Denies hematuria Musculoskeletal: Musculoskeletal: Denies arthralgias Integumentary/Breasts: Skin/Breast: Denies dry skin Neurologic: Denies Abnormal speech present Psychiatric: Psychiatric: Denies anxiety Endocrine: Endocrine: Denies excessive sweating Hematologic/Lymphatic: Hematologic/Lymphatic: Denies easy bleeding Allergic/Immunologic: Allergic/Immunologic: Denies GI upset with certain foods PMFSH Past Medical History Medical History (Updated 09/28/24 @ 05:06 by Tish Girard DO) Diastolic dysfunction Echocardiogram July 2024: EF of 65-70%, mildly increased left ventricular wall thickness, diastolic dysfunction grade 1, E/E mildly elevated 12, global longitudinal strain is-21, moderate aortic valve sclerosis, mild aortic valve stenosis valve area of 1.9 Mild aortic stenosis Venous (peripheral) insufficiency Severe obstructive sleep apnea Polysomnogram 09/26/2024 recommended CPAP of 16 Pre-diabetes Breast asymmetry between little [place] breast and reconstructed breast Radial styloid tenosynovitis [de quervain] Sinusitis Contact dermatitis Varicose vein of leg Hemorrhoids Mumps Hypertension Surgical History Surgical History History of left oophorectomy History of cholecystectomy Family History Family History (Updated 09/28/24 @ 08:01 by Tish Girard DO) Mother , of complications of diabetes at age 84 Cerebrovascular accident Diabetes mellitus Emphysema lung Sibling Hypertension Cerebrovascular accident Diabetes mellitus Acute myocardial infarction, Onset Age: 60 Father Hypertension Alcoholism Heart disease, Onset Age: 70 Other Family history of allergic disorder Social History Social History (Updated 09/28/24 @ 08:04 by Tish Girard DO) Social History: She is she lives in her own home. she has 1 son. Her brother lives with her. She is a former smoker she smoked 3 packs per day for about 20 years but quit smoking at the age of 39. 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 Code status: Full code Surrogate decision maker: Donald Borja (son) Smoking packs per day: 3 Smoking cigarettes per day: 60.0 Years smoked: 20 Smoking pack-years: 60.00 Smoking status: Former smoker Tobacco type: cigarettes Second hand tobacco smoke exposure: No Smoking end date: 07/02/89 Alcohol intake: former Alcohol use details: She used to drink alcohol on occasion but has not done so in many years. Substance use: former Substance use type: marijuana Last use: 1974 Do You Feel Safe in your Home?: Yes Lack of Transportation: No Lack of Food: Never True Current Housing: I Have Housing Concerned About Future Housing: No Difficulty Paying Gas/Electric Bills: No Difficulty Paying for Meds: No Currently Unemployed: YES Education: Decline to Answer Difficulty w/ Childcare or Family Care: No Living arrangements: alone Occupation/Education: occupation Gender identity (if verbalized by the patient): Female Sexual Orientation (if Verbalized by the Patient): Straight or Heterosexual Spiritual care concerns: No Meds Home Medications and Allergies Home Medications ?Medication ?Instructions ?Recorded ?Confirmed ?Type loratadine 10 mg tablet (Claritin) 10 mg PO DAILY 02/08/23 09/28/24 History irbesartan 300 mg tablet See Rx Instructions .Route 04/03/24 09/28/24 Rx .COMPLEX #90 tabs furosemide 20 mg tablet See Rx Instructions .Route 04/07/24 09/28/24 Rx .COMPLEX #90 tabs potassium chloride 10 mEq See Rx Instructions .Route 04/07/24 09/28/24 Rx tablet,extended release .COMPLEX #90 tabs omeprazole 40 mg capsule,delayed 40 mg PO DAILY #90 caps 09/23/24 09/28/24 Rx release elderberry fruit 200 mg capsule See Rx Instructions PO .COMPLEX 09/28/24 09/28/24 History ibuprofen 800 mg tablet (IBU) 800 mg PO Q6H PRN pain 09/28/24 09/28/24 History multivitamin (Daily Multi-Vitamin 1 tablet PO DAILY 09/28/24 09/28/24 History tablet) vit C 30 mg-s.hernandez 250 mg-celery 1 cap PO DAILY 09/28/24 09/28/24 History seed 75 mg-grape seed extrt capsule (Tart Hernandez) Allergies Allergy/AdvReac Type Severity Reaction Status Date / Time Penicillins Allergy Unknown Hives Verified 09/28/24 04:45 Vital Signs Vital Signs - 24 hr 09/27/24 21:15 09/27/24 22:15 09/27/24 22:16 Temperature 36.3 C L Pulse Rate 85 75 Respiratory Rate 16 Blood Pressure 144/65 H Pulse Oximetry 97 100 Oxygen Delivery Room Air Room Air Fraction of Inspired Oxygen 09/27/24 22:16 09/27/24 22:17 09/27/24 23:31 Temperature 37.0 C Pulse Rate 73 76 Respiratory Rate 16 13 Blood Pressure 130/68 122/58 L Pulse Oximetry 100 100 Oxygen Delivery Room Air Fraction of Inspired Oxygen 09/28/24 00:01 09/28/24 00:02 09/28/24 02:00 Temperature Pulse Rate 73 71 67 Respiratory Rate 13 12 13 Blood Pressure 137/60 Pulse Oximetry 98 100 100 Oxygen Delivery Fraction of Inspired Oxygen 09/28/24 02:15 09/28/24 02:30 09/28/24 02:45 Temperature Pulse Rate 71 70 68 Respiratory Rate 13 12 11 L Blood Pressure Pulse Oximetry 98 99 100 Oxygen Delivery Fraction of Inspired Oxygen 09/28/24 03:00 09/28/24 03:04 09/28/24 03:07 Temperature Pulse Rate 68 68 71 Respiratory Rate 19 12 11 L Blood Pressure 122/60 Pulse Oximetry 100 100 100 Oxygen Delivery Fraction of Inspired Oxygen 09/28/24 03:16 09/28/24 03:31 09/28/24 03:46 Temperature Pulse Rate 66 68 74 Respiratory Rate 12 14 11 L Blood Pressure 131/62 128/64 139/64 Pulse Oximetry 100 100 100 Oxygen Delivery Fraction of Inspired Oxygen 09/28/24 04:00 09/28/24 04:15 09/28/24 04:15 Temperature 36.5 C Pulse Rate 66 72 Respiratory Rate 18 Blood Pressure 145/60 H Pulse Oximetry 100 Oxygen Delivery Room Air Fraction of Inspired Oxygen 09/28/24 06:00 09/28/24 06:26 09/28/24 08:00 Temperature 36.6 C Pulse Rate 65 71 Respiratory Rate 12 Blood Pressure 141/61 H Pulse Oximetry 97 Oxygen Delivery CPAP Fraction of Inspired Oxygen 09/28/24 08:00 09/28/24 08:00 09/28/24 08:00 Temperature 36.6 C Pulse Rate 71 79 Respiratory Rate 12 Blood Pressure 141/61 H Pulse Oximetry 97 97 Oxygen Delivery Room Air Fraction of Inspired Oxygen 09/28/24 08:01 09/28/24 10:00 Temperature Pulse Rate 73 Respiratory Rate Blood Pressure Pulse Oximetry 95 Oxygen Delivery Room Air Fraction of Inspired Oxygen 21 Exam 2 Narrative: Alert oriented appears stated age Const: General: comfortable and no acute distress HENMT: Face/Nose/Sinus: Normal nares present Mouth: Yes moist mucous membranes Eyes: General: appearance normal, both eyes and all related structures S clera: sclerae normal Neck: Neck: supple and no JVD Carotids: no bruits Chest: Other: No reproducible chest wall to pain to palpation Resp: Effort & Inspection: normal respiratory effort Auscultation: clear to auscultation bilaterally Cardio: Rate: regular rate Rhythm: regular rhythm Heart sounds: Murmur heart sound present Other: 2/6 systolic ejection murmur at base GI: Inspection: non-distended GI Palp: Yes Soft to palpation A uscultation: normal bowel sounds Skin: General skin exam: normal color Neuro: Speech: normal speech Sensory Exam: normal sensation Extrem: General: edema Other: Mild lower extremity edema bilaterally Psych: Mental Status: mental status grossly normal Affect: normal affect Results Labs and Meds 09/27/24 21:22 09/27/24 21:22 Lab results: Cardiac Enzymes 09/27/24 09/28/24 09/28/24 Range/Units 21:22 00:02 03:03 AST 29 (14-36) U/L Troponin I 0.015 0.031 D 0.044 H* D (0.000-0.034) ng/mL 09/28/24 Range/Units 04:59 AST (14-36) U/L Troponin I 0.067 H* D (0.000-0.034) ng/mL Coagulation 09/27/24 Range/Units 21:22 PT 13.1 (11.1-14.7) Seconds APTT 27.5 (22.3-36.8) Seconds Lipids 09/28/24 Range/Units 04:59 Triglycerides 64 (<150) mg/dL Cholesterol 158 (0-200) mg/dL CBC 09/27/24 Range/Units 21:22 WBC 7.0 (4.5-10.0) K/mm3 RBC 3.66 L (4.2-5.4) M/mm3 Hgb 11.0 L (12.0-15.0) g/dL Hct 33.3 L (37.0-47.0) % Plt Count 306 (150-375) k/mm3 Lymph # (Auto) 1.68 (0.9-3.2) K/mm3 [place] # (Auto) 0.5 (0.1-0.6) K/mm3 Eos # (Auto) 0.3 (0-0.3) K/mm3 Baso # (Auto) 0.0 (0.0-0.1) K/mm3 Comprehensive Metabolic Panel 09/27/24 Range/Units 21:22 Sodium 136 L (137-145) mmol/L Potassium 4.2 (3.4-5.0) mmol/L Chloride 101 (98-107) mmol/L Carbon Dioxide 26 (22-30) mmol/L BUN 24 H (7-17) mg/dL Creatinine 0.75 (0.7-1.0) mg/dL Glucose 116 H (65-110) mg/dL Calcium 8.9 (8.4-10.2) mg/dL AST 29 (14-36) U/L ALT 17 (6-35) U/L Alkaline Phosphatase 161 H (38-126) U/L Total Protein 7.0 (6.3-8.2) g/dL Albumin 4.2 (3.5-5.1) g/dL Intake and Output 09/27/24 09/28/24 09/28/24 23:59 07:59 15:59 Intake Total 240 Output Total 700 Balance -700 240 Intake: Oral 240 Output: Urine 700 Patient Weight 09/28/24 23:59 Weight 96.4 kg EKG is personally viewed and interpreted show normal sinus rhythm low voltage. Abnormal ECG
[2024-09-28] MEDS: METOPROLOL TARTRATE 25 MG TABLET PO ×2 (11:50→21:30)
[2024-09-28] MEDS: ATORVASTATIN 40 MG TABLET PO (11:50)
--- NOTE | 2024-09-28 14:55 | PM.IMPN ---
Progress Note: A&P Assessment and Plan (1) Non-STEMI (non-ST elevated myocardial infarction): Code(s): I21.4 - Non-ST elevation (NSTEMI) myocardial infarction Status: Acute Assessment and Plan: Patient presents with exertional chest pain that radiates to the jaw and resolves with rest over the past month. Her symptoms have progressed and now waking her up from sleep. Troponin elevated to 0.067. EKG showing normal sinus with low voltage in precordium and moderate IVCD. CXR is clear. TG 64, TC 158, LDL 73, HDL 47 Repeat EKG showing normal sinus with low voltage in precordium; IVCD better. ASA given. Started on therapeutic Lovenox. Cardiology was consulted. Liptor and metoprolol started. Plan for LHC in the morning. (2) Angina pectoris: Code(s): I20.9 - Angina pectoris, unspecified Status: Acute Assessment and Plan: As above (3) Severe obstructive sleep apnea: Code(s): G47.33 - Obstructive sleep apnea (adult) (pediatric) Status: Acute Assessment and Plan: The patient had an outpatient sleep study with an overall AHI of 65.6 with desaturation down to 89%. This is consistent with severe sleep apnea. The patient was started on CPAP 5 cm H2O and titrated to CPAP 16 cm H2O. The patient has not had CPAP set up yet. Start CPAP here. (4) Cardiac murmur: Code(s): R01.1 - Cardiac murmur, unspecified Status: Acute Assessment and Plan: Patient had an Echo Jul 2023 showing EF 65-70%, Grade I diastolic dysfunction and mild . Check Echo. Follow up on results. Plan DVT Prophylaxis - Lovenox Code status - full Subjective Date/time seen: 09/28/24 14:55 Interval history: 74yo female with GARRET, HTN and diastolic dysfxn here for chest and anterior neck pain. Patient slept okay. No nausea or vomiting. No chest pain or palpitations. No arm pain or back pain. Denies short of breath. She still feels ?achy? and heavy in the neck area since she had the chest pain. She has had a murmur since childhood. Exam Narrative: AF 97.3 154/66 78 16 100% ra Gen - NARD Chest - CTA bilaterally, nml RR CV - RRR S1/S2 with 2/6 systolic murmur USB that radiates to the carotids. Tele showing no significant dysrhythmias Abd - Soft, NT/ND, Positive BS Ext - trace pedal edema. 2+ DP bilaterally Neuro - Alert and oriented. Nonfocal exam. Psych - Nml mood and affect Skin - Warm and dry Objective Data Vital Signs Vital Signs: Vital Signs - 24 hr 09/27/24 21:15 09/27/24 22:15 09/27/24 22:16 Temperature 97.4 F L Pulse Rate 85 75 Respiratory Rate 16 Blood Pressure 144/65 H Pulse Oximetry 97 100 Oxygen Delivery Room Air Room Air Fraction of Inspired Oxygen 09/27/24 22:16 09/27/24 22:17 09/27/24 23:31 Temperature 98.6 F Pulse Rate 73 76 Respiratory Rate 16 13 Blood Pressure 130/68 122/58 L Pulse Oximetry 100 100 Oxygen Delivery Room Air Fraction of Inspired Oxygen 09/28/24 00:01 09/28/24 00:02 09/28/24 02:00 Temperature Pulse Rate 73 71 67 Respiratory Rate 13 12 13 Blood Pressure 137/60 Pulse Oximetry 98 100 100 Oxygen Delivery Fraction of Inspired Oxygen 09/28/24 02:15 09/28/24 02:30 09/28/24 02:45 Temperature Pulse Rate 71 70 68 Respiratory Rate 13 12 11 L Blood Pressure Pulse Oximetry 98 99 100 Oxygen Delivery Fraction of Inspired Oxygen 09/28/24 03:00 09/28/24 03:04 09/28/24 03:07 Temperature Pulse Rate 68 68 71 Respiratory Rate 19 12 11 L Blood Pressure 122/60 Pulse Oximetry 100 100 100 Oxygen Delivery Fraction of Inspired Oxygen 09/28/24 03:16 09/28/24 03:31 09/28/24 03:46 Temperature Pulse Rate 66 68 74 Respiratory Rate 12 14 11 L Blood Pressure 131/62 128/64 139/64 Pulse Oximetry 100 100 100 Oxygen Delivery Fraction of Inspired Oxygen 09/28/24 04:00 09/28/24 04:15 09/28/24 04:15 Temperature 97.7 F Pulse Rate 66 72 Respiratory Rate 18 Blood Pressure 145/60 H Pulse Oximetry 100 Oxygen Delivery Room Air Fraction of Inspired Oxygen 09/28/24 06:00 09/28/24 06:26 09/28/24 08:00 Temperature 97.9 F Pulse Rate 65 71 Respiratory Rate 12 Blood Pressure 141/61 H Pulse Oximetry 97 Oxygen Delivery CPAP Fraction of Inspired Oxygen 09/28/24 08:00 09/28/24 08:00 09/28/24 08:00 Temperature 97.9 F Pulse Rate 71 79 Respiratory Rate 12 Blood Pressure 141/61 H Pulse Oximetry 97 97 Oxygen Delivery Room Air Fraction of Inspired Oxygen 09/28/24 08:01 09/28/24 10:00 09/28/24 11:50 Temperature Pulse Rate 73 72 Respiratory Rate Blood Pressure Pulse Oximetry 95 Oxygen Delivery Room Air Fraction of Inspired Oxygen 21 09/28/24 12:00 09/28/24 12:00 09/28/24 12:00 Temperature 97.3 F L 97.3 F L Pulse Rate 74 74 Respiratory Rate 16 16 Blood Pressure 154/66 H 154/66 H Pulse Oximetry 100 100 Oxygen Delivery Room Air Fraction of Inspired Oxygen 09/28/24 12:00 Temperature Pulse Rate 78 Respiratory Rate Blood Pressure Pulse Oximetry Oxygen Delivery Fraction of Inspired Oxygen Intake/Output Intake/Output: Intake & Output 09/25/24 09/26/24 09/27/24 09/28/24 23:59 23:59 23:59 23:59 Intake Total 360 Output Total 700 Balance -340 Meds/Results Medications: Active Medications Generic Name Dose Route Start Last Admin Trade Name Freq PRN Reason Stop Dose Admin Acetaminophen 650 mg 09/28/24 08:05 Acetaminophen 325 Mg Tablet PO Q4H PRN Mild Pain (1-3) or Fever Aspirin 81 mg 09/28/24 09:00 09/28/24 09:24 Aspirin 81 Mg Enteric Tablet PO 81 mg QA GAURAV Administration Atorvastatin Calcium 40 mg 09/28/24 11:35 09/28/24 11:50 Atorvastatin 40 Mg Tablet PO 40 mg DAILY GAURAV Administration Enoxaparin Sodium 98 mg 09/28/24 05:00 09/28/24 06:29 Enoxaparin 100 Mg/Ml Syringe SUB-Q 98 mg Q12H GAURAV Administration Irbesartan 300 mg 09/28/24 05:00 09/28/24 06:29 Irbesartan 150 Mg Tablet PO 300 mg DAILY GAURAV Administration Loratadine 10 mg 09/28/24 09:00 09/28/24 09:24 Loratadine 10 Mg Tablet PO 10 mg DAILY GAURAV Administration Metoprolol Tartrate 25 mg 09/28/24 11:30 09/28/24 11:50 Metoprolol Tartrate 25 Mg Tablet PO 25 mg Q12HR GAURAV Administration Multivitamins Therapeutic 1 tablet 09/28/24 09:00 09/28/24 09:24 Multivitamins Therapeutic Tab (*Bkc) PO 1 tablet DAILY GAURAV Administration Pantoprazole Sodium 40 mg 09/28/24 09:00 09/28/24 09:24 Pantoprazole 40 Mg Tablet PO 40 mg Q12HR GAURAV Administration Perflutren Lipid Microsphere 0 ml 09/28/24 11:29 Perflutren Lipid Microspheres 1.5 Ml Vial Diluted To 10 Ml Total Volume IV PUSH 10/01/24 11:29 ONCE PRN adequate visualization Protocol Radiology Results: ITS Impressions Chest X-Ray 09/28/24 12:08 IMPRESSION: No focal infiltrate or effusion. Labs Labs: Laboratory Results - last 24 hr 09/27/24 09/28/24 09/28/24 21:22 00:02 03:03 WBC 7.0 RBC 3.66 L Hgb 11.0 L Hct 33.3 L MCV 91.0 MCH 30.1 MCHC 33.0 RDW 12.4 Plt Count 306 MPV 10.0 Immature Gran % (Auto) 0.4 Neut % (Auto) 63.9 Lymph % (Auto) 24.1 [place] % (Auto) 7.2 Eos % (Auto) 4.0 Baso % (Auto) 0.4 Lymph # (Auto) 1.68 [place] # (Auto) 0.5 Eos # (Auto) 0.3 Baso # (Auto) 0.0 Abs Immat Gran (auto) 0.03 Absolute Neuts (auto) 4.5 Absolute Nucleated RBC 0.000 Nucleated RBC % 0.0 PT 13.1 INR 0.9 APTT 27.5 Sodium 136 L Potassium 4.2 Chloride 101 Carbon Dioxide 26 Anion Gap 9 BUN 24 H Creatinine 0.75 Estim Creat Clear Calc 67 Estimated GFR > 60 Glucose 116 H Calcium 8.9 Total Bilirubin 0.5 AST 29 ALT 17 Alkaline Phosphatase 161 H Troponin I 0.015 0.031 D 0.044 H* D Total Protein 7.0 Albumin 4.2 Triglycerides Cholesterol LDL Cholesterol Direct HDL Direct Lipase 99 09/28/24 04:59 WBC RBC Hgb Hct MCV MCH MCHC RDW Plt Count MPV Immature Gran % (Auto) Neut % (Auto) Lymph % (Auto) [place] % (Auto) Eos % (Auto) Baso % (Auto) Lymph # (Auto) [place] # (Auto) Eos # (Auto) Baso # (Auto) Abs Immat Gran (auto) Absolute Neuts (auto) Absolute Nucleated RBC Nucleated RBC % PT INR APTT Sodium Potassium Chloride Carbon Dioxide Anion Gap BUN Creatinine Estim Creat Clear Calc Estimated GFR Glucose Calcium Total Bilirubin AST ALT Alkaline Phosphatase Troponin I 0.067 H* D Total Protein Albumin Triglycerides 64 Cholesterol 158 LDL Cholesterol Direct 73 HDL Direct 47 Lipase
[2024-09-29] VITALS (35 sets, daily range): BP systolic 101–152; BP diastolic 47–80; PULSE 57–82; RESP 12–18; TEMP 36.3–36.9; O2SAT 94–100
--- NOTE | 2024-09-29 | ECHO_ITS ---
Patient Info Name: Rosa Tuttle Age: 74 years : 1950 Gender: Female Ht: 65 in Wt: 212 lbs BSA: 2.14 m2 HR: 65 bpm BP: 129 / 59 mmHg Heart Rhythm: Sinus Rhythm Technical Quality: Fair Exam Date: 09/29/2024 9:59 AM Exam Location: Echo Lab Patient Status: Inpatient Admit Date: 09/29/2024 Staff Ordering Physician: Derek Daigle MD Home Health Caregiver: Laurel House RDCS Attending Provider: Tish Girard DO Referring Physician: Oxana ORTIZ; Exam Type: CA echo doppler color flow Study Info Indications - NON STEMI and MURMUR Complete two-dimensional, color flow and Doppler transthoracic echocardiogram is performed. Summary 1. Complete two-dimensional, color flow and Doppler transthoracic echocardiogram is performed. 2. There is normal biventricular size and systolic function. 3. There is mild aortic stenosis. Left Ventricle The left ventricle is normal in size and systolic function. The left ventricular ejection fraction is visually estimated to be 65-70%. Right Ventricle The right ventricle is normal in size and systolic function. Left Atria The left atrium is normal size. Right Atria The right atrium is normal size. Atrial Septum The atrial septum is not well visualized. Aortic Valve The aortic valve is trileaflet and calcified. There is mild aortic stenosis. There is trace aortic regurgitation. Pulmonic Valve Pulmonic valve is not well visualized. There is no pulmonic valve regurgitation. Mitral Valve The mitral valve is normal. There is no mitral regurgitation. Tricuspid Valve The tricuspid valve is normal. There is trace tricuspid regurgitation. Pericardium/Pleural Pericardium is normal in appearance with no evidence for significant pericardial effusion. Inferior Vena Cava Dilated inferior vena cava with >50% collapse upon inspiration consistent with elevated right atrial pressure, 8 mmHg. Aorta The aortic root at the level of the sinus of Valsalva measures 2.9 cm in diameter. Left Ventricular Outflow Tract Name Value Normal LVOT 2D LVOT Diameter 2.0 cm LVOT Doppler LVOT Peak Gradient 11 mmHg LVOT Mean Gradient 5 mmHg LVOT VTI 35 cm LVOT VTI/AV VTI Ratio 0.6 LVOT Stroke Volume 109 ml LVOT CO 6.6 l/min LVOT CI 3.1 l/min/m2 Pulmonic Valve Name Value Normal RVOT Doppler RVOT Peak Gradient 1 mmHg PV Doppler PV Peak Gradient 5 mmHg Mitral Valve Name Value Normal MV Doppler MV Decel [place] 366 cm/s2 MV PHT 88 ms MV Area (PHT) 2.5 cm2 4.0-5.0 MV Diastolic Function MV E Peak Velocity 112 cm/s MV A Peak Velocity 111 cm/s MV E/A 1.0 MV Decel Time 305 ms MV Annular TDI MV E/e' (Septal) 13.8 <=8.0 MV E/e' (Lateral) 11.1 <=8.0 MV E/e' (Average) 12.5 Tricuspid Valve Name Value Normal TV Regurgitation Doppler TR Peak Velocity 255 cm/s TR Peak Gradient 26 mmHg Estimated PAP/RSVP RA Pressure 8 mmHg <=5 PA Systolic Pressure 34 mmHg <36 RV Systolic Pressure 34 mmHg <36 Aorta Name Value Normal Ascending Aorta Ao Root Diameter (MM) 2.9 cm Ao Root Diam Index (MM) 1.4 cm/m2 Aortic Valve Name Value Normal AV Doppler AV Peak Velocity 255 cm/s AV Peak Gradient 26 mmHg AV Mean Gradient 14 mmHg AV VTI 59 cm AV Area (Cont Eq VTI) 1.9 cm2 >=3.0 AV Area (Cont Eq Eyal) 2.0 cm2 AV Regurgitation 2D LVOT Area 3.1 cm2 Ventricles Name Value Normal LV Dimensions 2D/MM IVS Diastolic Thickness (2D) 0.9 cm 0.6-1.0 LVID Diastole (2D) 5.1 cm 3.8-5.2 LVIW Diastolic Thickness (2D) 0.8 cm 0.6-0.9 LVID Systole (2D) 3.5 cm 2.2-3.5 LVOT Diameter 2.0 cm LV Mass (2D Cubed) 145.95 g 67.00-162.00 LV Mass Index (2D Cubed) 68 g/m2 43-95 Relative Wall Thickness (2D) 0.31 LV Fractional Shortening/Ejection Fraction 2D/MM LV Fractional Shortening (2D) 32 % 27-45 LV EF (2D Teicholz) 60 % 54-74 LV Diastolic Volume (4C MOD) 69 ml LV EF (4C MOD) 62 % LV Diastolic Volume (2C MOD) 58 ml LV EF (2C MOD) 68 % LV Diastolic Volume (BP MOD) 65 ml 46-106 LV Diastolic Volume Index (BP MOD) 30 ml/m2 29-61 LV Systolic Volume (BP MOD) 23 ml 14-42 LV Systolic Volume Index (BP MOD) 11 ml/m2 8-24 LV EF (BP MOD) 65 % 54-74 LV Diastolic Length (4C) 8.0 cm LV Systolic Length (4C) 6.4 cm LV Stroke Volume (4C MOD) 43 ml Atria Name Value Normal LA Dimensions LA Dimension (MM) 4.6 cm 2.7-3.8 LA Volume (4C A-L) 66 ml LA Volume (BP A-L) 73 ml RA Dimensions RA Area (4C) 16.0 cm2 <=18.0 Report Signatures
[2024-09-29 04:46] LABS: Basophils Percent Auto 0.5 % (0.2-1.2); Eosinophils Absolute Auto 0.3 K/mm3 (0-0.3); Eosinophils Percent Auto 4.2 % (0-4.4); Hematocrit 32.9 % (37.0-47.0); Hemoglobin 10.3 g/dL (12.0-15.0); Immature Granulocyte Absolute 0.02 K/mm3 (0.00-0.031); Immature Granulocyte Percent A 0.3 % (0-0.5); Lymphocytes Absolute Auto 1.62 K/mm3 (0.9-3.2); Lymphocytes Percent Auto 26.9 % (18.3-44.2); Mean Corpuscular HGB Conc 31.3 g/dl (32-36); Mean Corpuscular Hemoglobin 29.5 pg (26-34); Mean Corpuscular Volume 94.3 fl (80-100); Mean Platelet Volume 10.5 fl (7.4-10.4); Monocytes Absolute Auto 0.5 K/mm3 (0.1-0.6); Monocytes Percent Auto 8.8 % (2.6-8.5); Neutrophils Absolute Auto 3.6 K/mm3 (1.3-6.7); Neutrophils Percent Auto 59.3 % (45.5-73.1); Platelet Count Result 265 k/mm3 (150-375); Red Blood Count 3.49 M/mm3 (4.2-5.4); Red Cell Distribution Width 12.6 % (11.5-14.5)
[2024-09-29 05:02] LABS: Alanine Aminotransferase 15 U/L (6-35); Albumin Level 3.4 g/dL (3.5-5.1); Alkaline Phosphatase 123 U/L (38-126); Anion Gap 7 mmol/L (4-12); Aspartate Amino Transferase 21 U/L (14-36); Bilirubin,Total 0.6 mg/dL (0.2-1.3); Blood Urea Nitrogen 18 mg/dL (7-17); Calcium 8.8 mg/dL (8.4-10.2); Carbon Dioxide 26 mmol/L (22-30); Chloride 105 mmol/L (98-107); Estimated CRCL calculation 69 ml/min; Estimated Glomerular Filt Rate > 60; Glucose 117 mg/dL (65-110); Potassium 4.3 mmol/L (3.4-5.0); Sodium 138 mmol/L (137-145)
[2024-09-29] MEDS: IRBESARTAN 150 MG TABLET 300 MG PO (08:33)
[2024-09-29] MEDS: LORATADINE 10 MG TABLET PO (08:33)
[2024-09-29] MEDS: MULTIVITAMINS THERAPEUTIC TAB (*BKC) 1 TABLET PO (08:33)
[2024-09-29] MEDS: ASPIRIN 81 MG ENTERIC TABLET PO (08:33)
[2024-09-29] MEDS: PANTOPRAZOLE 40 MG TABLET PO ×2 (08:33→20:17)
[2024-09-29] MEDS: METOPROLOL TARTRATE 25 MG TABLET PO ×2 (08:33→20:17)
[2024-09-29] MEDS: ATORVASTATIN 40 MG TABLET PO (08:33)
--- NOTE | 2024-09-29 11:56 | PM.PNCARD ---
Progress Note: A&P Assessment and Plan (1) Non-STEMI (non-ST elevated myocardial infarction): Code(s): I21.4 - Non-ST elevation (NSTEMI) myocardial infarction Status: Acute (2) HTN (hypertension): Qualifiers: Hypertension type: primary hypertension Qualified Code(s): I10 - Essential (primary) hypertension Code(s): I10 - Essential (primary) hypertension Status: Acute (3) Mild aortic stenosis: Code(s): I35.0 - Nonrheumatic aortic (valve) stenosis Status: Acute Plan 74-year-old woman with hypertension and aortic stenosis presented with chest pain whose clinical presentation is consistent with non ST elevation IA Non ST-elevation IA -status post Lovenox -continue aspirin 81 mg p.o. daily, atorvastatin 40 mg every evening, and Lopressor 25 mg p.o. b.i.d. -we have discussed the risks, benefits, indications, alternatives to cardiac catheterization and after all questions were answered, patient agreed to proceed for with recommended cardiac catheterization possible PCI Aortic stenosis -diagnosis of physical examination and will clarify the severity on transthoracic echocardiogram Hypertension -continue irbesartan 300 mg p.o. daily Subjective Date/time seen: 09/29/24 11:56 Interval history: No chest pain this morning. No shortness of breath. Review of Systems Cardiovascular: Cardiovascular: Reports as per HPI Respiratory: Respiratory: Reports as per HPI Exam Const: General: comfortable HENMT: Mouth: Yes moist mucous membranes Neck: Neck: no JVD Resp: Effort & Inspection: normal respiratory effort Auscultation: clear to auscultation bilaterally Cardio: Rate: regular rate Rhythm: regular rhythm Extrem: General: no pedal edema Objective Data Vital Signs Vital Signs: Vital Signs - 24 hr 09/28/24 12:00 09/28/24 12:00 09/28/24 12:00 Temperature 36.3 C L 36.3 C L Pulse Rate 74 74 Respiratory Rate 16 16 Blood Pressure 154/66 H 154/66 H Pulse Oximetry 100 100 Oxygen Delivery Room Air 09/28/24 12:00 09/28/24 14:00 09/28/24 15:59 Temperature 36.6 C Pulse Rate 78 64 62 Respiratory Rate 18 Blood Pressure 119/52 L Pulse Oximetry 97 Oxygen Delivery 09/28/24 16:00 09/28/24 16:00 09/28/24 18:00 Temperature Pulse Rate 62 72 Respiratory Rate Blood Pressure Pulse Oximetry Oxygen Delivery Room Air 09/28/24 19:37 09/28/24 20:00 09/28/24 20:20 Temperature 36.6 C Pulse Rate 72 74 72 Respiratory Rate 17 17 Blood Pressure 106/51 L Pulse Oximetry 98 98 Oxygen Delivery Room Air 09/28/24 21:30 09/28/24 22:00 09/28/24 23:42 Temperature 36.6 C Pulse Rate 67 64 64 Respiratory Rate 18 Blood Pressure 105/55 L Pulse Oximetry 97 Oxygen Delivery 09/29/24 00:00 09/29/24 01:15 09/29/24 02:00 Temperature Pulse Rate 61 64 57 L Respiratory Rate 18 Blood Pressure Pulse Oximetry 97 Oxygen Delivery CPAP 09/29/24 03:01 09/29/24 04:00 09/29/24 04:00 Temperature 36.8 C Pulse Rate 65 64 Respiratory Rate 17 Blood Pressure 129/59 L Pulse Oximetry 99 Oxygen Delivery CPAP 09/29/24 04:20 09/29/24 06:00 09/29/24 08:00 Temperature 36.4 C L Pulse Rate 65 67 62 Respiratory Rate 17 18 Blood Pressure 141/52 H Pulse Oximetry 99 99 Oxygen Delivery Room Air 09/29/24 08:00 09/29/24 08:00 09/29/24 08:33 Temperature Pulse Rate 61 60 Respiratory Rate Blood Pressure Pulse Oximetry Oxygen Delivery Room Air 09/29/24 10:00 Temperature Pulse Rate 61 Respiratory Rate Blood Pressure Pulse Oximetry Oxygen Delivery Intake/Output Intake/Output: Intake & Output 09/26/24 09/27/24 09/28/24 09/29/24 23:59 23:59 23:59 23:59 Intake Total 480 Output Total 1400 Balance -920 Meds/Results Medications: Active Medications Generic Name Dose Route Start Last Admin Trade Name Freq PRN Reason Stop Dose Admin Acetaminophen 650 mg 09/28/24 08:05 Acetaminophen 325 Mg Tablet PO Q4H PRN Mild Pain (1-3) or Fever Aspirin 81 mg 09/28/24 09:00 09/29/24 08:33 Aspirin 81 Mg Enteric Tablet PO 81 mg QAM GAURAV Administration Atorvastatin Calcium 40 mg 09/28/24 11:35 09/29/24 08:33 Atorvastatin 40 Mg Tablet PO 40 mg DAILY GAURAV Administration Irbesartan 300 mg 09/28/24 05:00 09/29/24 08:33 Irbesartan 150 Mg Tablet PO 300 mg DAILY GAURAV Administration Loratadine 10 mg 09/28/24 09:00 09/29/24 08:33 Loratadine 10 Mg Tablet PO 10 mg DAILY GAURAV Administration Metoprolol Tartrate 25 mg 09/28/24 11:30 09/29/24 08:33 Metoprolol Tartrate 25 Mg Tablet PO 25 mg Q12HR GAURAV Administration Multivitamins Therapeutic 1 tablet 09/28/24 09:00 09/29/24 08:33 Multivitamins Therapeutic Tab (*Bkc) PO 1 tablet DAILY GAURAV Administration Pantoprazole Sodium 40 mg 09/28/24 09:00 09/29/24 08:33 Pantoprazole 40 Mg Tablet PO 40 mg Q12HR GAURAV Administration Perflutren Lipid Microsphere 0 ml 09/28/24 11:29 Perflutren Lipid Microspheres 1.5 Ml Vial Diluted To 10 Ml Total Volume IV PUSH 10/01/24 11:29 ONCE PRN adequate visualization Protocol Radiology Results: ITS Impressions Chest X-Ray 09/28/24 12:08 IMPRESSION: No focal infiltrate or effusion. Labs Labs: Laboratory Results - last 24 hr 09/29/24 04:14 WBC 6.0 RBC 3.49 L Hgb 10.3 L Hct 32.9 L MCV 94.3 MCH 29.5 MCHC 31.3 L RDW 12.6 Plt Count 265 MPV 10.5 H Immature Gran % (Auto) 0.3 Neut % (Auto) 59.3 Lymph % (Auto) 26.9 [place] % (Auto) 8.8 H Eos % (Auto) 4.2 Baso % (Auto) 0.5 Lymph # (Auto) 1.62 [place] # (Auto) 0.5 Eos # (Auto) 0.3 Baso # (Auto) 0.0 Abs Immat Gran (auto) 0.02 Absolute Neuts (auto) 3.6 Absolute Nucleated RBC 0.000 Nucleated RBC % 0.0 Sodium 138 Potassium 4.3 Chloride 105 Carbon Dioxide 26 Anion Gap 7 BUN 18 H Creatinine 0.74 Estim Creat Clear Calc 69 Estimated GFR > 60 Glucose 117 H Calcium 8.8 Magnesium 2.0 Total Bilirubin 0.6 AST 21 ALT 15 Alkaline Phosphatase 123 Total Protein 6.0 L Albumin 3.4 L
--- NOTE | 2024-09-29 12:00 | WPDHPUPDATE1 ---
History and Physical Update Update Date/Time: 09/29/24 09:00 History and Physical has been reviewed, including an updated exam of the patient. There are NO changes in the patient's condition. Risks, benefits, and alternatives have been discussed and questions answered. Patient agrees to proceed with procedure.
--- NOTE | 2024-09-29 12:00 | WPDMODSED ---
Moderate Sedation Note-Pt Data Patient Data Allergies Allergy/AdvReac Type Severity Reaction Status Date / Time Penicillins Allergy Unknown Hives Verified 09/29/24 01:16 Home Medications ?Medication ?Instructions ?Recorded ?Confirmed ?Type loratadine 10 mg tablet (Claritin) 10 mg PO DAILY 02/08/23 09/28/24 History irbesartan 300 mg tablet See Rx Instructions .Route 04/03/24 09/28/24 Rx .COMPLEX #90 tabs furosemide 20 mg tablet See Rx Instructions .Route 04/07/24 09/28/24 Rx .COMPLEX #90 tabs potassium chloride 10 mEq See Rx Instructions .Route 04/07/24 09/28/24 Rx tablet,extended release .COMPLEX #90 tabs omeprazole 40 mg capsule,delayed 40 mg PO DAILY #90 caps 09/23/24 09/28/24 Rx release elderberry fruit 200 mg capsule See Rx Instructions PO .COMPLEX 09/28/24 09/28/24 History ibuprofen 800 mg tablet (IBU) 800 mg PO Q6H PRN pain 09/28/24 09/28/24 History multivitamin (Daily Multi-Vitamin 1 tablet PO DAILY 09/28/24 09/28/24 History tablet) vit C 30 mg-s.hernandez 250 mg-celery 1 cap PO DAILY 09/28/24 09/28/24 History seed 75 mg-grape seed extrt capsule (Tart Hernandez) Current Medications: Active Medications Acetaminophen (Acetaminophen 325 Mg Tablet) 650 mg PO Q4H PRN PRN Reason: Mild Pain (1-3) or Fever Aspirin (Aspirin 81 Mg Enteric Tablet) 81 mg PO QAM [facility] Last Admin: 09/29/24 08:33 Dose: 81 mg Atorvastatin Calcium (Atorvastatin 40 Mg Tablet) 40 mg PO DAILY [facility] Last Admin: 09/29/24 08:33 Dose: 40 mg Irbesartan (Irbesartan 150 Mg Tablet) 300 mg PO DAILY [facility] Last Admin: 09/29/24 08:33 Dose: 300 mg Loratadine (Loratadine 10 Mg Tablet) 10 mg PO DAILY [facility] Last Admin: 09/29/24 08:33 Dose: 10 mg Metoprolol Tartrate (Metoprolol Tartrate 25 Mg Tablet) 25 mg PO Q12HR [facility] Last Admin: 09/29/24 08:33 Dose: 25 mg Multivitamins Therapeutic (Multivitamins Therapeutic Tab (*Bkc)) 1 tablet PO DAILY [facility] Last Admin: 09/29/24 08:33 Dose: 1 tablet Pantoprazole Sodium (Pantoprazole 40 Mg Tablet) 40 mg PO Q12HR [facility] Last Admin: 09/29/24 08:33 Dose: 40 mg Perflutren Lipid Microsphere (Perflutren Lipid Microspheres 1.5 Ml Vial Diluted To 10 Ml Total Volume) 0 ml IV PUSH ONCE PRN; Protocol PRN Reason: adequate visualization Stop: 10/01/24 11:29 Sedation/Anesthesia: No previous sedation/anesthesia problems (including family history). [facility] Past Medical History Medical History (Updated 09/29/24 @ 11:59 by Mason Ureña MD) Mild aortic stenosis Diastolic dysfunction Echocardiogram July 2024: EF of 65-70%, mildly increased left ventricular wall thickness, diastolic dysfunction grade 1, E/E mildly elevated 12, global longitudinal strain is-21, moderate aortic valve sclerosis, mild aortic valve stenosis valve area of 1.9 Venous (peripheral) insufficiency Severe obstructive sleep apnea Polysomnogram 09/26/2024 recommended CPAP of 16 Pre-diabetes Breast asymmetry between [place] breast and reconstructed breast Radial styloid tenosynovitis [de quervain] Sinusitis Contact dermatitis Varicose vein of leg Hemorrhoids Mumps Hypertension Surgical History Surgical History History of left oophorectomy History of cholecystectomy Family History Family History (Updated 09/28/24 @ 08:01 by Tish Girard DO) Mother , of complications of diabetes at age 84 Cerebrovascular accident Diabetes mellitus Emphysema lung Sibling Hypertension Cerebrovascular accident Diabetes mellitus Acute myocardial infarction, Onset Age: 60 Father Hypertension Alcoholism Heart disease, Onset Age: 70 Other Family history of allergic disorder Social History Social History (Updated 09/28/24 @ 08:04 by Tish Girard DO) Social History: She is she lives in her own home. she has 1 son. Her brother lives with her. She is a former smoker she smoked 3 packs per day for about 20 years but quit smoking at the age of 39. 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 Code status: Full code Surrogate decision maker: Donald Borja (son) Smoking packs per day: 3 Smoking cigarettes per day: 60.0 Years smoked: 20 Smoking pack-years: 60.00 Smoking status: Former smoker Tobacco type: cigarettes Second hand tobacco smoke exposure: No Smoking end date: 07/02/89 Alcohol intake: former Alcohol use details: She used to drink alcohol on occasion but has not done so in many years. Substance use: former Substance use type: marijuana Last use: 1975 Do You Feel Safe in your Home?: Yes Lack of Transportation: No Lack of Food: Never True Current Housing: I Have Housing Concerned About Future Housing: No Difficulty Paying Gas/Electric Bills: No Difficulty Paying for Meds: No Currently Unemployed: YES Education: Decline to Answer Difficulty w/ Childcare or Family Care: No Living arrangements: alone Occupation/Education: occupation Gender identity (if verbalized by the patient): Female Sexual Orientation (if Verbalized by the Patient): Straight or Heterosexual Spiritual care concerns: No Mod Sed Physical Exam Physical Exam Pre Procedural Exam: Normal: Lungs, Heart Rate and Heart Rhythm Hours since solid foods: 12 Hours since liquid intake: 12 Mallampati Classification: class II Internal Medicine - PN: Obj Da Vital Signs Vital Signs: Vital Signs - 24 hr 09/28/24 14:00 09/28/24 15:59 09/28/24 16:00 Temperature 36.6 C Pulse Rate 64 62 62 Respiratory Rate 18 Blood Pressure 119/52 L Pulse Oximetry 97 Oxygen Delivery 09/28/24 16:00 09/28/24 18:00 09/28/24 19:37 Temperature 36.6 C Pulse Rate 72 72 Respiratory Rate 17 Blood Pressure 106/51 L Pulse Oximetry 98 Oxygen Delivery Room Air 09/28/24 20:00 09/28/24 20:20 09/28/24 21:30 Temperature Pulse Rate 74 72 67 Respiratory Rate 17 Blood Pressure Pulse Oximetry 98 Oxygen Delivery Room Air 09/28/24 22:00 09/28/24 23:42 09/29/24 00:00 Temperature 36.6 C Pulse Rate 64 64 61 Respiratory Rate 18 Blood Pressure 105/55 L Pulse Oximetry 97 Oxygen Delivery 09/29/24 01:15 09/29/24 02:00 09/29/24 03:01 Temperature Pulse Rate 64 57 L Respiratory Rate 18 Blood Pressure Pulse Oximetry 97 Oxygen Delivery CPAP CPAP 09/29/24 04:00 09/29/24 04:00 09/29/24 04:20 Temperature 36.8 C Pulse Rate 65 64 65 Respiratory Rate 17 17 Blood Pressure 129/59 L Pulse Oximetry 99 99 Oxygen Delivery Room Air 09/29/24 06:00 09/29/24 08:00 09/29/24 08:00 Temperature 36.4 C L Pulse Rate 67 62 Respiratory Rate 18 Blood Pressure 141/52 H Pulse Oximetry 99 Oxygen Delivery Room Air 09/29/24 08:00 09/29/24 08:33 09/29/24 10:00 Temperature Pulse Rate 61 60 61 Respiratory Rate Blood Pressure Pulse Oximetry Oxygen Delivery Intake/Output Intake/Output: Intake & Output 09/26/24 09/27/24 09/28/24 09/29/24 23:59 23:59 23:59 23:59 Intake Total 480 Output Total 1400 Balance -920 Meds/Results Medications: Active Medications Generic Name Dose Route Start Last Admin Trade Name Freq PRN Reason Stop Dose Admin Acetaminophen 650 mg 09/28/24 08:05 Acetaminophen 325 Mg Tablet PO Q4H PRN Mild Pain (1-3) or Fever Aspirin 81 mg 09/28/24 09:00 09/29/24 08:33 Aspirin 81 Mg Enteric Tablet PO 81 mg QAM GAURAV Administration Atorvastatin Calcium 40 mg 09/28/24 11:35 09/29/24 08:33 Atorvastatin 40 Mg Tablet PO 40 mg DAILY GAURAV Administration Irbesartan 300 mg 09/28/24 05:00 09/29/24 08:33 Irbesartan 150 Mg Tablet PO 300 mg DAILY GAURAV Administration Loratadine 10 mg 09/28/24 09:00 09/29/24 08:33 Loratadine 10 Mg Tablet PO 10 mg DAILY GAURAV Administration Metoprolol Tartrate 25 mg 09/28/24 11:30 09/29/24 08:33 Metoprolol Tartrate 25 Mg Tablet PO 25 mg Q12HR GAURAV Administration Multivitamins Therapeutic 1 tablet 09/28/24 09:00 09/29/24 08:33 Multivitamins Therapeutic Tab (*Bkc) PO 1 tablet DAILY GAURAV Administration Pantoprazole Sodium 40 mg 09/28/24 09:00 09/29/24 08:33 Pantoprazole 40 Mg Tablet PO 40 mg Q12HR GAURAV Administration Perflutren Lipid Microsphere 0 ml 09/28/24 11:29 Perflutren Lipid Microspheres 1.5 Ml Vial Diluted To 10 Ml Total Volume IV PUSH 10/01/24 11:29 ONCE PRN adequate visualization Protocol Radiology Results: ITS Impressions Chest X-Ray 09/28/24 12:08 IMPRESSION: No focal infiltrate or effusion. Labs 09/29/24 04:14 09/29/24 04:14 Labs: Laboratory Results - last 24 hr 09/29/24 04:14 WBC 6.0 RBC 3.49 L Hgb 10.3 L Hct 32.9 L MCV 94.3 MCH 29.5 MCHC 31.3 L RDW 12.6 Plt Count 265 MPV 10.5 H Immature Gran % (Auto) 0.3 Neut % (Auto) 59.3 Lymph % (Auto) 26.9 [place] % (Auto) 8.8 H Eos % (Auto) 4.2 Baso % (Auto) 0.5 Lymph # (Auto) 1.62 [place] # (Auto) 0.5 Eos # (Auto) 0.3 Baso # (Auto) 0.0 Abs Immat Gran (auto) 0.02 Absolute Neuts (auto) 3.6 Absolute Nucleated RBC 0.000 Nucleated RBC % 0.0 Sodium 138 Potassium 4.3 Chloride 105 Carbon Dioxide 26 Anion Gap 7 BUN 18 H Creatinine 0.74 Estim Creat Clear Calc 69 Estimated GFR > 60 Glucose 117 H Calcium 8.8 Magnesium 2.0 Total Bilirubin 0.6 AST 21 ALT 15 Alkaline Phosphatase 123 Total Protein 6.0 L Albumin 3.4 L ASA Classification/Sedation ASA Classification/Sedation ASA Class: III Emergent: No Risks: Risks, benefits and alternatives explained and patient/family accepted plan for sedation. Patient re-evaluated immediately prior to sedation.
--- NOTE | 2024-09-29 12:36 | P.PNIM_ITS ---
Progress Note: A&P Assessment and Plan (1) Non-STEMI (non-ST elevated myocardial infarction): Code(s): I21.4 - Non-ST elevation (NSTEMI) myocardial infarction Status: Acute Assessment and Plan: Patient presents with exertional chest pain that radiates to the jaw and resolves with rest over the past month. Her symptoms have progressed and now waking her up from sleep. Troponin elevated to 0.067. EKG showing normal sinus with low voltage in precordium and moderate IVCD. CXR is clear. TG 64, TC 158, LDL 73, HDL 47 Repeat EKG showing normal sinus with low voltage in precordium; IVCD better. ASA, Liptor and metoprolol started. Started on therapeutic Lovenox. Cardiology was consulted. Plan for [facility] today (2) Angina pectoris: Code(s): I20.9 - Angina pectoris, unspecified Status: Acute Assessment and Plan: As above (3) Severe obstructive sleep apnea: Code(s): G47.33 - Obstructive sleep apnea (adult) (pediatric) Status: Acute Assessment and Plan: The patient had an outpatient sleep study with an overall AHI of 65.6 with desaturation down to 89%. This is consistent with severe sleep apnea. The patient was started on CPAP 5 cm H2O and titrated to CPAP 16 cm H2O. The patient has not had CPAP set up yet at home. She was willing to try it here so this was started last night. She tolerate it for a few hours. Encouraged to keep using it. (4) Cardiac murmur: Code(s): R01.1 - Cardiac murmur, unspecified Status: Acute Assessment and Plan: Patient had an Echo Jul 2023 showing EF 65-70%, Grade I diastolic dysfunction and mild . Echo here showing normal biventicular size and systolic function and mild . Also with elevated RAP 8mmHg; RVSP 34. Plan DVT Prophylaxis - SCDs Code status - full Subjective Date/time seen: 09/29/24 12:36 Interval history: 74yo female with GARRET, HTN and diastolic dysfxn here for chest and anterior neck pain. Slept okay. Tolerated the BiPAP for a few hours. no CP or SOB. Exam Narrative: AF 97.5 131/62 62 18 98% ra Gen - NARD Chest - CTA bilaterally, nml RR CV - RRR S1/S2 with +murmur. Tele showing no significant dysrhythmias Abd - Soft, NT/ND, Positive BS Ext - no pedal edema Psych - Nml mood and affect Skin - Warm and dry Objective Data Vital Signs Vital Signs: Vital Signs - 24 hr 09/28/24 14:00 09/28/24 15:59 09/28/24 16:00 Temperature 97.8 F Pulse Rate 64 62 62 Respiratory Rate 18 Blood Pressure 119/52 L Pulse Oximetry 97 Oxygen Delivery 09/28/24 16:00 09/28/24 18:00 09/28/24 19:37 Temperature 97.8 F Pulse Rate 72 72 Respiratory Rate 17 Blood Pressure 106/51 L Pulse Oximetry 98 Oxygen Delivery Room Air 09/28/24 20:00 09/28/24 20:20 09/28/24 21:30 Temperature Pulse Rate 74 72 67 Respiratory Rate 17 Blood Pressure Pulse Oximetry 98 Oxygen Delivery Room Air 09/28/24 22:00 09/28/24 23:42 09/29/24 00:00 Temperature 97.8 F Pulse Rate 64 64 61 Respiratory Rate 18 Blood Pressure 105/55 L Pulse Oximetry 97 Oxygen Delivery 09/29/24 01:15 09/29/24 02:00 09/29/24 03:01 Temperature Pulse Rate 64 57 L Respiratory Rate 18 Blood Pressure Pulse Oximetry 97 Oxygen Delivery CPAP CPAP 09/29/24 04:00 09/29/24 04:00 09/29/24 04:20 Temperature 98.2 F Pulse Rate 65 64 65 Respiratory Rate 17 17 Blood Pressure 129/59 L Pulse Oximetry 99 99 Oxygen Delivery Room Air 09/29/24 06:00 09/29/24 08:00 09/29/24 08:00 Temperature 97.5 F L Pulse Rate 67 62 Respiratory Rate 18 Blood Pressure 141/52 H Pulse Oximetry 99 Oxygen Delivery Room Air 09/29/24 08:00 09/29/24 08:33 09/29/24 10:00 Temperature Pulse Rate 61 60 61 Respiratory Rate Blood Pressure Pulse Oximetry Oxygen Delivery 09/29/24 12:00 09/29/24 12:00 09/29/24 12:00 Temperature 97.5 F L Pulse Rate 76 62 Respiratory Rate 18 Blood Pressure 131/62 Pulse Oximetry 98 Oxygen Delivery Room Air Intake/Output Intake/Output: Intake & Output 03/09/27/24 09/28/24 09/29/24 23:59 23:59 23:59 23:59 Intake Total 480 Output Total 1400 Balance -920 Meds/Results Medications: Active Medications Generic Name Dose Route Start Last Admin Trade Name Freq PRN Reason Stop Dose Admin Acetaminophen 650 mg 09/28/24 08:05 Acetaminophen 325 Mg Tablet PO Q4H PRN Mild Pain (1-3) or Fever Aspirin 81 mg 09/28/24 09:00 09/29/24 08:33 Aspirin 81 Mg Enteric Tablet PO 81 mg QAM GAURAV Administration Atorvastatin Calcium 40 mg 09/28/24 11:35 09/29/24 08:33 Atorvastatin 40 Mg Tablet PO 40 mg DAILY GAURAV Administration Irbesartan 300 mg 09/28/24 05:00 09/29/24 08:33 Irbesartan 150 Mg Tablet PO 300 mg DAILY GAURAV Administration Loratadine 10 mg 09/28/24 09:00 09/29/24 08:33 Loratadine 10 Mg Tablet PO 10 mg DAILY GAURAV Administration Metoprolol Tartrate 25 mg 09/28/24 11:30 09/29/24 08:33 Metoprolol Tartrate 25 Mg Tablet PO 25 mg Q12HR GAURAV Administration Multivitamins Therapeutic 1 tablet 09/28/24 09:00 09/29/24 08:33 Multivitamins Therapeutic Tab (*Bkc) PO 1 tablet DAILY GAURAV Administration Pantoprazole Sodium 40 mg 09/28/24 09:00 09/29/24 08:33 Pantoprazole 40 Mg Tablet PO 40 mg Q12HR GAURAV Administration Perflutren Lipid Microsphere 0 ml 09/28/24 11:29 Perflutren Lipid Microspheres 1.5 Ml Vial Diluted To 10 Ml Total Volume IV PUSH 10/01/24 11:29 ONCE PRN adequate visualization Protocol Radiology Results: ITS Impressions Chest X-Ray 09/28/24 12:08 IMPRESSION: No focal infiltrate or effusion. Labs Labs: Laboratory Results - last 24 hr 09/29/24 04:14 WBC 6.0 RBC 3.49 L Hgb 10.3 L Hct 32.9 L MCV 94.3 MCH 29.5 MCHC 31.3 L RDW 12.6 Plt Count 265 MPV 10.5 H Immature Gran % (Auto) 0.3 Neut % (Auto) 59.3 Lymph % (Auto) 26.9 [place] % (Auto) 8.8 H Eos % (Auto) 4.2 Baso % (Auto) 0.5 Lymph # (Auto) 1.62 [place] # (Auto) 0.5 Eos # (Auto) 0.3 Baso # (Auto) 0.0 Abs Immat Gran (auto) 0.02 Absolute Neuts (auto) 3.6 Absolute Nucleated RBC 0.000 Nucleated RBC % 0.0 Sodium 138 Potassium 4.3 Chloride 105 Carbon Dioxide 26 Anion Gap 7 BUN 18 H Creatinine 0.74 Estim Creat Clear Calc 69 Estimated GFR > 60 Glucose 117 H Calcium 8.8 Magnesium 2.0 Total Bilirubin 0.6 AST 21 ALT 15 Alkaline Phosphatase 123 Total Protein 6.0 L Albumin 3.4 L
--- NOTE | 2024-09-29 15:24 | WPDCARDPROC ---
Cardiac Cath Procedure Note Date of procedure:: 09/29/24 Performing physician:: CATHETERIZATION LABORATORY REPORT Procedure Date: 09/29/2024 Referring Physician: Dr. Nixon Anesthesia: Versed and Fentanyl were ordered and given in my presence at 1432, procedure ended at 1451. Supervision of nurse, Tali Rubin monitored moderate sedation with 2mg Versed and 50mcg Fentanyl was provided for 19 minutes. Pre-op Diagnosis: NSTEMI Post-op Diagnosis: NSTEMI Procedure(s): Left heart catheterization with coronary angiography Access Site: Right radial artery Brief History and Clinical Indications: 74-year-old woman with hypertension and aortic stenosis presented with chest pain whose clinical presentation is consistent with non ST elevation NV All risks, benefits and alternatives to left heart catheterization with or without percutaneous coronary intervention was discussed at length with the patient. Risk of complications including but not limited to bleeding, infection, arrhythmia, stroke, worsening kidney function, blood loss, groin hematoma, limb loss, emergency coronary artery bypass grafting, and even were discussed with the patient and all questions were answered. The patient understood and wished to proceed. Time out called, patient name, date of , medical record number, allergies, procedure performed, identify Health Program Director, patient and staff member concurred with accurate data, procedure carried on. Findings: LEFT HEART CATHETERIZATION FINDINGS: 1. Left main: The left main coronary artery is widely patent without any significant obstructive disease. 2. Left anterior descending: The LAD gives off several diagonal branches none of which were more than 2 mm vessels. The proximal LAD has 10-20% stenosis leading into a severely stenotic area in the mid LAD that is estimated to be 80-99% stenosis. 3. Left circumflex: The left circumflex artery gives off one main significant OM branch. The distal left circumflex is diffusely disease with severe stenosis and after this severe stenosis and unlikely a good surgical target. The OM1 at its ostium to proximal body has diffuse 70% to 80% stenosis with good surgical landing zones. 4. Right coronary artery: The RCA is a large dominant vessel. The proximal to mid body of the RCA has diffuse 70-90% stenosis. The RPL branch is small and have diffuse 10-20% disease. The RPDA has a long segment of 50-70% stenosis. 5. Left ventricle: A. End-diastolic pressure 1 mmHg. B. LV gram deferred. C. No significant gradient across aortic valve on catheter pullback. 6. Opening AO pressure 112/61 and closing AO pressure 130/60 Description of Procedure: Informed consent signed and placed in the chart. Patient transferred to bundle tier and labeler room. Prepped and draped in usual sterile fashion. 2% lidocaine injected subcutaneously in right wrist area. 22-gauge venipuncture catheter used to access the right radial artery with the Seldinger technique. 6-FR slender sheath placed in right radial artery. Nitroglycerin 200mcg, Verapamil 2.5mg, and Heparin 5000U was given intraarterial through the sheath. J wire advanced under fluoroscopy 5F TIG diagnostic catheter engaged Left Main Coronary Artery. 5F TIG diagnostic catheter engaged Right Coronary Artery Multiple orthogonal angiogram obtained and reviewed 5F Pigtail diagnostic catheter crossed aortic valve to obtain LVEDP, LV angiogram deferred. Hemostasis was achieved by application of TR band. Assessment: Multivessel CAD Post Operative Condition: Stable No significant blood loss Disposition: Floor Plan: Will prepare to transfer for CT surgery consult Continue aspirin 81 mg p.o. daily, Lopressor 25 mg p.o. b.i.d., atorvastatin 40 mg every evening Mason Ureña Interventional Cardiology
[2024-09-29] MEDS: SODIUM CHLORIDE 0.9% IV 1,000 ML 125 ML IV CONT (17:59)
[2024-09-29] MEDS: ACETAMINOPHEN 325 MG TABLET 650 MG PO (20:27)
[2024-09-30] VITALS: BP 134/61; PULSE 65; PULSE 75; RESP 18; TEMP 36.6; O2SAT 94
[2024-09-30 02:00] VITALS: PULSE 57
[2024-09-30 03:42] VITALS: BP 114/54; PULSE 62; RESP 19; TEMP 36.3; O2SAT 98
[2024-09-30 04:00] VITALS: PULSE 59
[2024-09-30 06:00] VITALS: PULSE 85
--- NOTE | 2024-09-30 06:51 | PC.NURSE ---
0650- Update given to [facility] transfer center. ETA of EMS 0630 at this time. No updated ETA at this time.
[2024-09-30] MEDS: ASPIRIN 81 MG ENTERIC TABLET PO (08:41)
[2024-09-30] MEDS: LORATADINE 10 MG TABLET PO (08:41)
[2024-09-30] MEDS: IRBESARTAN 150 MG TABLET 300 MG PO (08:42)
[2024-09-30] MEDS: MULTIVITAMINS THERAPEUTIC TAB (*BKC) 1 TABLET PO (08:43)
[2024-09-30] MEDS: ATORVASTATIN 40 MG TABLET PO (08:43)
[2024-09-30] MEDS: METOPROLOL TARTRATE 25 MG TABLET PO (08:43)
[2024-09-30] MEDS: PANTOPRAZOLE 40 MG TABLET PO (08:43)
--- NOTE | 2024-09-30 09:50 | PC.NURSE ---
Patient transferred to another facility via [facility]. quality assurance monitor body removed. Morning medications given to patient and reviewed with EMS employees. Family notified of transfer by the patient. No distress noted at the time of transfer.
--- NOTE | 2024-09-30 18:07 | P.TS_ITS ---
Transfer Discharge Sum: Prov Provider Date of admission: 09/29/24 09:56 Primary care physician: Lory Andrade PA-C Admitting clinician: Tish Girard DO Consults: 09/28/24 Consult to Physician Routine Comment: Consulting Provider: Derek Daigle Reason for consultation: Chest pain Has provider been notified: Yes DS: Admitting Diagnosis Discharge Date 09/30/24 Admitting Diagnosis Chest pain DS: Discharge Diagnosis Discharge Diagnosis (1) Non-STEMI (non-ST elevated myocardial infarction): Code(s): I21.4 - Non-ST elevation (NSTEMI) myocardial infarction Status: Acute (2) Angina pectoris: Code(s): I20.9 - Angina pectoris, unspecified Status: Acute (3) Severe obstructive sleep apnea: Code(s): G47.33 - Obstructive sleep apnea (adult) (pediatric) Status: Acute (4) Cardiac murmur: Code(s): R01.1 - Cardiac murmur, unspecified Status: Acute Transfer Discharge Sum: Med Medications Active and Home Medications: Home Medications loratadine 10 mg tablet (Claritin) 10 mg PO DAILY 02/08/23 [History Confirmed 09/28/24] furosemide 20 mg tablet See Rx Instructions .Route .COMPLEX #90 tabs 04/07/24 [Rx Confirmed 09/28/24] potassium chloride 10 mEq tablet,extended release See Rx Instructions .Route .COMPLEX #90 tabs 04/07/24 [Rx Confirmed 09/28/24] omeprazole 40 mg capsule,delayed release 40 mg PO DAILY #90 caps 09/23/24 [Rx Confirmed 09/28/24] elderberry fruit 200 mg capsule See Rx Instructions PO .COMPLEX 09/28/24 [History Confirmed 09/28/24] ibuprofen 800 mg tablet (IBU) 800 mg PO Q6H PRN pain 09/28/24 [History Confirmed 09/28/24] multivitamin (Daily Multi-Vitamin tablet) 1 tablet PO DAILY 09/28/24 [History Confirmed 09/28/24] vit C 30 mg-s.hernandez 250 mg-celery seed 75 mg-grape seed extrt capsule (Tart Hernandez) 1 cap PO DAILY 09/28/24 [History Confirmed 09/28/24] irbesartan 300 mg tablet See Rx Instructions .Route .COMPLEX #90 tabs 09/29/24 [Rx] Transfer Discharge Sum: Hosp Hospital Course Hospital course: Rosa Tuttle is a 74 year old female with GARRET, HTN and diastolic dysfxn here for chest and anterior neck pain. Please see H&P for details. Patient presented with exertional chest pain that radiatesd to the jaw and resolved with rest over the past month. Her symptoms progressed and woke her up from sleep. Troponin elevated to 0.067. EKG showing normal sinus with low voltage in precordium and moderate IVCD. CXR is clear. TG 64, TC 158, LDL 73, HDL 47. Repeat EKG showing normal sinus with low voltage in precordium; IVCD better. ASA, Liptor and metoprolol started. Started on therapeutic Lovenox. Cardiology was consulted. The patient had an outpatient sleep study with an overall AHI of 65.6 with desaturation down to 89%. This is consistent with severe sleep apnea. The patient was started on CPAP 5 cm H2O and titrated to CPAP 16 cm H2O. The patient has not had CPAP set up yet at home. She was willing to try it here so this was started last night. She tolerate it for a few hours. Encouraged to keep using it. Patient had an Echo Jul 2023 showing EF 65-70%, Grade I diastolic dysfunction and mild . Echo here showing normal biventicular size and systolic function and mild . Also with elevated RAP 8mmHg; RVSP 34. She underwent LHC on 09/29/24: 1. Left main: The left main coronary artery is widely patent without any significant obstructive disease. 2. LAD: The LAD gives off several diagonal branches none of which were more than 2 mm vessels. The proximal LAD has 10-20% stenosis leading into a severely stenotic area in the mid LAD that is estimated to be 80-99% stenosis. 3. LCX: The left circumflex artery gives off one main significant OM branch. The distal left circumflex is diffusely disease with severe stenosis and after this severe stenosis and unlikely a good surgical target. The OM1 at its ostium to proximal body has diffuse 70% to 80% stenosis with good surgical landing zones. 4. RCA: The RCA is a large dominant vessel. The proximal to mid body of the RCA has diffuse 70-90% stenosis. The RPL branch is small and have diffuse 10- 20% disease. The RPDA has a long segment of 50-70% stenosis. 5. Left ventricle: End-diastolic pressure 1 mmHg. LV-gram deferred. No significant gradient across aortic valve on catheter pullback. 6. Opening AO pressure 112/61 and closing AO pressure 130/60 She was found to have multivessel coronary disease. Patient was transferred to tertiary care in stable condition for cardiothorax surgery evaluation. Time Spent with Patient Time attestation: Total time spent providing and/or coordinating transfer services: 20 minutes Total time spent: Less than 30 minutes Exam Narrative: AF 97.4 114/54 85 19 98% ra (Patient was transferred prior to my see ing the patient on day of transfer)
== END 2024-09-30 08:59 | disposition short-term general hospital (02) | DRG 282 ==
LOC: ANHED 09-28 02:31 → ANHIMU 09-28 04:03
PROVIDERS: Emergency Medicine; Internal Medicine; Admitting Provider Internal Medicine; Emergency Provider Emergency Medicine; PCP Physician Assistant; Visit Provider Internal Medicine
PROC: 4A023N7 Measurement of Cardiac Sampling and Pressure, Left Heart, Percutaneous Approach (ICD-10-PCS; CPT 93452; principal; 2024-09-29 14:30)
DX: I21.4 Non-ST elevation (NSTEMI) myocardial infarction (principal); I25.119 Atherosclerotic heart disease of native coronary artery with unspecified angina pectoris; R01.1 Cardiac murmur, unspecified; I35.0 Nonrheumatic aortic (valve) stenosis; G47.33 Obstructive sleep apnea (adult) (pediatric); I10 Essential (primary) hypertension; E66.9 Obesity, unspecified; K21.9 Gastro-esophageal reflux disease without esophagitis; Z90.49 Acquired absence of other specified parts of digestive tract; Z90.721 Acquired absence of ovaries, unilateral; Z87.891 Personal history of nicotine dependence
CPT/HCPCS: 36415; 71046; 80053; 80061; 83690; 83735; 84484; 85025; 85610; 85730; 93005; 93306; 93458; 96372; 99285; A9270; C1769; C1887; C1894; G0378; J1644; J1650; J2003; J2250; J2305; J3010; J7030; J7040

== ENCOUNTER 2025-04-02 15:00 | Outpatient (RCR) | payer MEDICARE, SELFPAY | END 2025-04-06 15:17 | disposition home or self-care (01) | LOC: ANHCPREHAB 15:00 | PROVIDERS: PCP Family Medicine; Visit Provider Internal Medicine | DX: Z95.1 Presence of aortocoronary bypass graft (principal) | CPT/HCPCS: 93798 ==

== ENCOUNTER 2025-05-04 01:55 | Emergency (ER) | payer MEDICARE, SELFPAY ==
[2025-05-04] VITALS (21 sets, daily range): BP systolic 135–157; BP diastolic 57–74; PULSE 57–70; RESP 10–16; TEMP 37; O2SAT 98–100
--- NOTE | ~2025-05-04 | XR_ITS ---
Examination: XR chest 1V portable Clinical History: CHEST PAIN Comparison: 09/27/2024 Technique: Portable AP Findings: Heart size normal. Left basilar opacity. No acute bony abnormality. IMPRESSION: 1. Left basilar atelectasis, airspace disease, and/or small effusion. Consider PA and lateral films with deep inspiration. Reviewed, dictated and finalized at location R. ARCH PHLEBOTOMIST
--- OUTSIDE RECORDS SUMMARY | 2025-05-04 01:57 | XMS_ITS | Clinical Summary ---
Author Organization [facility] [address] Address [address] [place] [address] Care Team Providers Care Data Integration Analyst Name Role Phone Lory Andrade Primary Care Provid er Elvis Krueger MD Unavailable [phone] Dori Andersen NP Unavailable Allergies Active Allergy Reactions Criticality Noted Date Comments Penicillins Hives,Other (See comments) High Reaction: Hives, Mouth Sores, Medications acetaminophen 500 mg capsuleIndicati ons:Pain Take 2 capsules (1,000 mg total) by mouth every 6 (six) hours 10/10/19 25 Active amiodarone (PACERONE) 200 mg tabletIndicatio ns:Prevention of A. Fib Post Cardio-Thoracic Surgery Take 2 tablets (400 mg total) by mouth 3 (three) times a day for 3 days, THEN 1 tablet (200 mg total) 2 (two) times a day. 78 tablet 10/10/19 25 Active apixaban (ELIQUIS) 5 mg tabletIndicatio ns:atrial fibrillation Take 1 tablet (5 mg total) by mouth every 12 (twelve) hours 60 tablet 1 10/10/19 25 Active oxyCODONE (ROXICODONE) 5 mg immediate release tabletIndicatio ns:Pain Take 1 tablet (5 mg total) by mouth every 4 (four) hours as needed for pain 21 tablet 10/10/19 25 Active Additional Information Patient not taking.Reported on 11/07/2024 furosemide (LASIX) 40 mg tabletIndicatio ns:Peripheral Edema due to Chronic Heart Failure Take 1 tablet (40 mg total) by mouth daily 30 tablet 4 11/27/19 25 Active clopidogreL (PLAVIX) 75 mg tablet Take 1 tablet (75 mg total) by mouth daily 30 tablet 11 12/31/19 25 Active atorvastatin (LIPITOR) 40 mg tablet Take 1 tablet (40 mg total) by mouth nightly 30 tablet 11 12/31/19 25 Active spironolactone (ALDACTONE) 25 mg tabletIndicatio ns:hypertension Take 1 tablet (25 mg total) by mouth daily 30 tablet 3 04/06/20 25 2025 Active metoprolol tartrate (LOPRESSOR) 25 mg immediate release tablet TAKE 1/4 (ONE-FOURTH) TABLET BY MOUTH TWICE DAILY 15 tablet 4 04/17/20 25 Active spironolactone (ALDACTONE) 25 mg tabletIndicatio ns:hypertension Take 1 tablet (25 mg total) by mouth daily 30 tablet 3 11/14/19 25 2024 Discontinued(R eorder) metoprolol tartrate (LOPRESSOR) 25 mg immediate release tabletIndicatio ns:coronary artery disease Take 0.25 tablets (6.25 mg total) by mouth 2 (two) times a day 15 tablet 4 11/27/19 25 2024 Discontinued Active Problems Problem Noted Date Diagnosed Date Coronary artery disease (CAD) excluded Abnormal LFTs 10/02/2024 Coronary artery disease of n ative heart with stable angina pectoris 10/01/2024 Diabetes mellitus, new onset 10/01/2024 GARRET (obstructive sleep apnea) 10/01/2024 Normocytic anemia 10/01/2024 BMI 35.0-35.9,adult 10/01/2024 Chest pain 09/30/2024 Right upper quadrant abdominal pain 10/12/2011 Disease of gallbladder 10/12/2011 Encounters Date Type Department Care Team Description 04/06/[address] [facility] Cardiology [address] [place] [address] Mason Ureña MD Med Refill from Last 3 Months Surgical History Surgery Date Site/Laterality Comments OOPHERECTOMY CHOLECYSTECTOMY CORONARY ARTERY BYPASS GRAFT 09/30/2024 Medical History Medical History Date Comments Abnormal results of liver fu nction studies Abdominal MRI Liver Nonspeci fic Abnormality - (Added by TW Conv) Right upper quadrant pain Abdomi nal pain, RUQ (right upper quadrant) - (Added by TW Conv) Disease of gallbladder Gallbladd er disease - (Added by TW Conv) Aortic stenosis mild Hypertension GERD (gastroesophageal reflux disease) GARRET (obstructive sleep apnea) CAD (coronary artery disease) 09/29/2024 NSTEMI (non-ST elevated myoc ardial infarction) (HCC) 09/28/2024 Mild aortic stenosis Family History Medical History Relation Name Comments Coronary artery disease Brother Coronary artery disease Father Relation Name Status Comments Brother Father Social History Tobacco Use Types Packs/Day Years Used Date Smoking Tobacco: Former Tobacco Cessation:Counseling Given: Not Answered OASIS D0700: Social Isolation Answer Da te Recorded Frequency of experiencing loneliness or isolatio n Never 11/06/2024 OASIS A1250: Transportation Answer Date Recorded Lack of Transportation (Medical) No 11/06/2024 Lack of Transportation (Non-Medical) No 11/06/2024 Patient Unable or Declines to Respond No 11/06/2024 OASIS B1300: Health Literacy Answer Akshat e Recorded Frequency of needing help to read materials from doctor or pharmacy Sometimes 11/06/2024 [facility] Utilities Answer Date Recorded In the past 12 months has e [employer], gas, oil, or water [employer] threatened to shut off services in your home? No 10/01/2024 Social Connection and Isolation Panel Answer Date Recorded In a typical week, how many times do you talk on the phone with family, friends, or neighbors? More than three times a week 10/01/2024 How often do you get togethe r with friends or relatives? More than three times a week 10/01/2024 How often do you attend chur ch or roman catholic services? Never 10/01/2024 Do you belong to any clubs o r organizations such as lutheran groups, unions, fraternal or athletic groups, or school groups? No 10/01/2024 How often do you attend meet ings of the clubs or organizations you belong to? Never 10/01/2024 Are you , , di vorced, , never , or living with a partner? 10/01/2024 Overall Financial Resource Strain (CARDIA) Answe r Date Recorded How hard is it for you to pa y for the very basics like food, housing, medical care, and heating? Not hard at all 10/01/2024 Hunger Vital Sign Answer Date Recorded Within the past 12 months, y ou worried that your food would run out before you got the money to buy more. Never true 10/02/19 25 Within the past 12 months, t he food you bought just didn't last and you didn't have money to get more. Never true 10/01/2024 PRAPARE - Transportation Answer Date Re corded In the past 12 months, has l ack of transportation kept you from medical appointments or from getting medications? No 08/2024 In the past 12 months, has l ack of transportation kept you from meetings, work, or from getting things needed for daily living? No 10/01/2024 Housing Stability Vital Sign Answer Akshat e Recorded In the last 12 months, was t here a time when you were not able to pay the mortgage or rent on time? No 10/01/2024 In the past 12 months, how m any times have you moved where you were living? 0 10/01/2024 At any time in the past 12 [facility], were you homeless or living in a long-term (including now)? No 10/01/2024 Personal Safety Answer Date Recorded Have you ever been in or are you currently in a harmful physical or emotional relationship or is someone making you feel afraid or unsafe? 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 Gender Identity Not on file Sexual Orientation Not on file Last Filed Vital Signs Vital Sign Reading Time Taken Comments Blood Pressure 125/64 11/13/2024 12:17 PM CDT Pulse 62 11/13/2024 12:17 PM CDT Temperature 36.6 C (97.9 F) 10/23/2024 9:11 AM CDT Respiratory Rate 16 11/13/2024 12:17 PM CDT Oxygen Saturation 98% 11/13/2024 12:17 PM CDT Inhaled Oxygen Concentration - - Weight 94.3 kg (208 lb) 11/13/2024 12:17 PM CDT Height 162.6 cm (5' 4) 11/13/2024 12:17 PM CDT Body Mass Index 35.7 11/13/2024 12:17 PM CDT Plan of Treatment Health Maintenance Due Date Last Done Comments Albumin Creatinine Ratio, Urine 1952 Breast Cancer Screening-Mammogram 1952 Colon Cancer Screening-Colonoscopy 1952 Depression Screening 1952 Osteoporosis Screening-Bone Density Scan 1952 Dilated Eye Exam 1952 Foot Exam 1952 Lipid Panel 1952 DTaP/Tdap/Td Vaccine (1 - Tdap) 1963 Hepatitis B Screening 1970 Pneumococcal vaccine 65+ (1 of 2 - PCV) 1971 Zoster Vaccine (1 of 2) 2002 Well Visit 65+ 2017 Covid-19 Vaccine (4 - 2024-2 6 season) 2025 06/28/2021, 09/22/2020, 08/31/2020 Influenza Vaccine (#1) 2025 Hemoglobin A1C 04/01/2025 09/30/2024 Fall Risk Assessment 10/09/2025 10/09/2024 eGFR 10/15/2025 10/15/2024, 09/30, 10/08/2024, Additional history exists Hepatitis C Screening Completed 10/03/2024 Medical Devices Implanted Type Area Manufacturing Systems Engineer Device Identifier Shelf Expiration Date Model / Serial / Lot [employer] Plate Bone Low Profile 4 Hole Box Sternum Ti 115.103.04 - [id number] Implanted:Qty: 1 on 10/03/2024 by Elvis Krueger MD at [facility] Plate N/A: Sternum [employer] 115.103.04 / / [employer] Plate Bone Low Profile 6 Hole H Shape Sternum Ti 115.102.06 - [id number] Implanted:Qty: 1 on 10/03/2024 by Elvis Krueger MD at [facility] Plate N/A: Sternum [employer] 115.102.06 / / [employer] Plate Bone Low Profile 6 Hole O Shape Sternum Ti 115.104.06 - [id number] Implanted:Qty: 1 on 10/03/2024 by Elvis Krueger MD at [facility] Plate N/A: Sternum [employer] 115.104.06 / / [employer] Screw Bone Slf Drl Full Thread Locking 3.5x16mm Ti 100.035.16 - [id number] Implanted:Qty: 16 on 10/03/2024 by Elvis Krueger MD at [facility] Screw N/A: Sternum [employer] 100.035.16 / / Procedures Procedure Name Priority Date/Time Associated Diagnosis Comments EGFR Routine 10/15/2024 12:20 PM CDT HEPATITIS PANEL, ACUTE Routine 10/03/2024 6:15 AM CDT HEMOGLOBIN A1C Routine 09/30/2024 1:15 PM CDT from Last 3 Months or Most Recently Relevant to Health Maintenance Results * (ABNORMAL) eGFR (10/15/2024 12:20 PM CDT) eGFR 47(L) >=60 mL/min/1. 73 m2 Comment: Interpretive Data Reference Interval Normal >/= 90 mL/min/1.73m2 Mildly decreased* 60 - 89 mL/min/1.73m2 Mildly to moderately decreased 45 - 59 mL/min/1.73m2 Moderately to severely decreased 30 - 44 mL/min/1.73m2 Severely decreased 15 - 29 mL/min/1.73m2 Kidney Failure < 15 mL/min/1.73m2 *Relative to young adult level Estimated glomerular filtration rate is determined by the 2020 CKD-EPI equation recommended by the National Kidney Foundation (A Unifying Approach to GFR Estimation: Recommendations of the NKF-ASK Task Force on Reassessing the Inclusion of Race in Diagnosing Kidney Disease, JASN 2020). The CKD-EPI equation should not be used for patients with unstable renal function and has not been validated in children and those over 70. Current interpretive data was last reviewed 2021. Blood 10/15/2024 12:2 0 PM CDT 10/15/2024 4:42 PM CDT us Notinfile Unknown LAB BLOOD ORDERABLES Final Res ult ZACK [facility] Department [place] [address] * Hepatitis panel, acute Blood (10/03/2024 6:15 AM CDT) Hep A IgM Nonreactive Nonreactive Comment: Interpretive Data: If Hep A IgM Ab is reported as Equivocal, a new sample should be drawn in two weeks for testing. Current interpretive data was last revised on 19. Hep B core IgM Nonreactive Nonreactive ZACK Comment: Interpretive Data If HepB Core IgM Ab is reported as Equivocal, a new sample should be drawn in two weeks for testing. Current interpretive data was last revised on 19. Hep C Ab Nonreactive Nonreactive ZACK Comment: Interpretive Data Nonreactive: Antibodies to HCV not detected. Does NOT exclude the possibility of recent exposure to HCV. Equivocal: Equivocal for HCV antibodies. Supplemental molecular testing will be automatically performed to determine infection status in accordance with current CDC screening recommendations. Reactive: Positive for HCV antibodies. This may represent current or past HCV infection. Supplemental molecular testing will be automatically performed to determine current infection status in accordance with current CDC screening recommendations. Interpretive data was last revised on 2019. HepBsAg Nonreactive Nonreactive [facility] Blood 10/03/2024 6:15 AM CDT 10/03/2024 6:52 AM CDT Kenia Alfaro MD LAB MICROBIOLOGY - GENERAL ORDERABLES Final Result ZACK [id number] Department [place] [address] * (ABNORMAL) Hemoglobin A1c (09/30/2024 1:15 PM CDT) Hgb A1C 6.5(H) 4.0 - 5.6 % Estimated Average Glucose 140 mg/dL ZACK Comment: The ADA recommends reporting an estimated Average Glucose (eAG) with all Hemoglobin A1c results using the equation derived from a study of 507 normal and diabetic adults. Minority populations were underrepresented and children were not included. (Diabetes Care 31:1650-9841, 2008). The eAG is not equivalent to a fasting glucose. Blood 09/30/2024 1:15 PM CDT 09/30/2024 1:17 PM CDT us Mitra Kaplan NP LAB BLOOD ORDERABLES Final Result ZACK [id number] Department [place] [address] from Last 3 Months or Most Recently Relevant to Health Maintenance Insurance MEDICARE MEDICARE MEDICARE Advance Directives For more information, please contact: [phone] * Full Code (Latest Code Status on File) Date Activated Date Inactivated Comments 09/30/2024 10:37 AM 10/09/2024 6:25 PM Care Teams Data Integration Analyst Relationship Specialty Start Date End Date Lory Andrade PA [address] [facility] [address] [place] [address] PCP - General Physician Coating And Embossing Unit Operator 09/28/24 Elvis Krueger MD [address] [facility] [address] [place] [address] Surgeon Cardiothoracic Surgery 10/09/24 Dori Andersen NP [address] [facility] [address] [place] [address] Nurse Practitioner Cardiovascular Disease 10/09/24
--- OUTSIDE RECORDS SUMMARY | 2025-05-04 01:57 | XMS_ITS | Encounter Summary ---
Author Organization [facility] Healthcare Address [address] [place] [address] Care Team Providers Care Search Engineer Name Role Phone Lory Andrade Primary Care Provid er Elvis Krueger MD Unavailable [phone] Dori Andersen NP Unavailable [phone] Encounter Details Date Type Department Care Team (Late st Contact Info) Description 10/01/2024 Orders Only [facility] Health Information Management [address] [place] [address] Scanning, Provider Social History Tobacco Use Types Packs/Day Years Used Date Smoking Tobacco: Former [facility] Utilities Answer Date Recorded In the past 12 months has [employer] electric, gas, oil, or water company threatened to shut off services in your [...] often do you attend chur ch or baptist services? Never 10/01/2024 Do you belong to any clubs o r organizations such as tenriism groups, unions, fraternal or athletic groups, or [...] any time in the past 12 m [facility], were you homeless or living in a nursing home (including now)? No 10/01/2024 Personal Safety Answer Date Recorded Have you ever been in or are you currently in a harmful physical or emotional relationship or is someone making you feel afraid or unsafe? 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 Gender Identity Not on file Sexual Orientation Not on file documented as of this encounter Plan of Treatment Not on file documented as of this encounter Procedures Procedure Name Priority Date/Time Associated Diagnosis Comments CARDIOLOGY DOCUMENT SCAN 10/01/2024 9:28 PM CDT documented in this encounter Results * Cardiology Document Scan (10/01/2024 9:28 PM CDT) Anatomical Region Laterality Modality Other us Provider Scanning CV CARDIAC SERVICES PROCEDURES Final Result documented in this encounter Visit Diagnoses Not on filedocumented in this encounter Care Teams Search Engineer Relationship Specialty Start Date End Date Lory Andraed PA [address] [facility] [address] [place] [address] PCP - General Physician Stake Driver 09/28/24 Elvis Krueger MD [address] [facility] [address] [place] [address] Surgeon Cardiothoracic Surgery 10/09/24 Dori Andersen NP [address] [facility] [address] [place] [address] Nurse Practitioner Cardiovascular Disease 10/09/24 documented as of this encounter
--- OUTSIDE RECORDS SUMMARY | 2025-05-04 01:57 | XMS_ITS | Encounter Summary ---
Author Organization [facility] Healthcare Address [address] [place] [address] Care Team Providers Care Compensation And Benefits Advisor Name Role Phone Lory Andrade Primary Care Provid er Elvis Krueger MD Unavailable [phone] Dori Andersen NP Unavailable [phone] Encounter Details Date Type Department Care Team (Late st Contact Info) Description 10/10/2024 [facility] Post Discharge Follow up phone call [facility] [address] [place] [address] Tiffany Giles Social History Tobacco Use Types Packs/Day Years Used Date Smoking Tobacco: Former OASIS D0700: Social Isolation Answer Da te Recorded Frequency of experiencing loneliness or isolatio n Never 10/12/2024 OASIS A1250: Transportation Answer Date Recorded Lack of Transportation (Medical) No 10/12/2024 Lack of Transportation (Non-Medical) No 10/12/2024 Patient Unable or Declines to Respond No 10/12/2024 OASIS B1300: Health Literacy Answer Akshat e Recorded Frequency of needing help to read materials from doctor or pharmacy Sometimes 10/12/2024 [facility] Utilities Answer Date Recorded In the past 12 months has th e electric, gas, oil, or water company threatened [...] often do you attend chur ch or religion services? Never 10/01/2024 Do you belong to any clubs o r organizations such as confucianist groups, unions, fraternal or athletic groups, or [...] any time in the past 12 m [facility], were you homeless or living in a correction (including now)? No 10/01/2024 Personal Safety Answer Date Recorded Have you ever been in or are you currently in a harmful physical or emotional relationship or is someone making you feel afraid or unsafe? 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 Gender Identity Not on file Sexual Orientation Not on file documented as of this encounter Plan of Treatment Not on file documented as of this encounter Visit Diagnoses Not on filedocumented in this encounter Care Teams Compensation And Benefits Advisor Relationship Specialty Start Date End Date Lory Andrade PA [address] [place] [address] PCP - General Physician Fitness Manager 09/28/24 Elvis Krueger MD [address] [facility] [address] [place] [address] Surgeon Cardiothoracic Surgery 10/09/24 Dori Andersen NP [address] [place] [address] Nurse Practitioner Cardiovascular Disease 10/09/24 documented as of this encounter
--- OUTSIDE RECORDS SUMMARY | 2025-05-04 01:57 | XMS_ITS | Clinical Summary ---
Author Organization [facility] Address [address] [facility] [place] [address] Care Team Providers Care Seismic Computer Name Role Phone Unavailable Primary Care Provider Unavailabl e Source Comments [facility],non-owned Affiliates and Associated Physician Practices is amultiple site organization consisting of ambulatory clinics and hospital sitesin [place], [place], [place] and [place]. This disclosure is being madepursuant to the Care Everywhere program and may not contain all information available regarding this patient. Last updated 18.[facility] Allergies Active Allergy Reactions Criticality Noted Date Comments Penicillins 09/05/2011 Medications * Be aware that medications may not be up to date on this document. Alwaysverify current medications with the patient. promethazine (PHENERGAN) 25 MG tablet Take 25 mg by mouth every 6 hours as needed. She was given a prescription for #20 tablets on 09/01/11. Active hydrocodone-letty taminophen (VICODIN) 5-500 MG tablet Take 1 Tab by mouth every 4 hours as needed. She was given a prescription for #20 tablets on 09/01/11. Active Social History Tobacco Use Types Packs/Day Years Used Date Smoking Tobacco: Former Alcohol Use Standard Drinks/Week Comments Not Asked 0 (1 standard drink = 0.6 oz pur e alcohol) Comments Unknown Sex and Gender Information Value Date Recorded Sex Assigned at Not on file Legal Sex Female 1:13 PM WOOD ROUTER HAND Gender Identity Not on file Sexual Orientation Not on file Last Filed Vital Signs Vital Sign Reading Time Taken Comments Blood Pressure 120/80 09/05/2011 12:53 PM WOOD ROUTER HAND Pulse 72 09/05/2011 12:53 PM WOOD ROUTER HAND Temperature 36.9 C (98.5 F) 09/05/2011 12:53 PM WOOD ROUTER HAND Respiratory Rate - - Oxygen Saturation - - Inhaled Oxygen Concentration - - Weight 91.4 kg (201 lb 6.4 oz) 09/05/2011 12:53 PM WOOD ROUTER HAND Height 167.6 cm (5' 6) 09/05/2011 12:53 PM WOOD ROUTER HAND Body Mass Index 32.51 09/05/2011 12:53 PM WOOD ROUTER HAND Plan of Treatment Health Maintenance Due Date [...] 2002 ZOSTER VACCINE (1 of 2) 2002 DEPRESSION SCREENING 07/02/2024 COVID-19 VACCINE (1 - 2023-2 5 season) 2025 INFLUENZA VACCINE (#1) 2025 Respiratory Syncytial Virus (RSV) Vaccine Pt: or [...] on patient's age to complete this topic Insurance [facility]
--- NOTE | 2025-05-04 01:58 | ECG_ITS ---
Test Date: 2025-05-04 02:02:38 Measurements Intervals [place] Rate: 71 P: 56 [place]: 164 QRS: 6 QRSD: 96 T: 18 QT: 370 QTc: 403 Interpretive Statements SINUS RHYTHM LOW QRS VOLTAGE IN PRECORDIAL LEADS [QRS DEFLECTION < 1.0 mV IN CHEST LEADS] INFERIOR INFARCT, AGE INDETERMINATE Compared to ECG 09/28/2024 03:17:39 myocardial infarction is now present Electronically Signed On 05-04-2025 09:35:22 COST CONSULTANT by Mason Ureña M.D.
[2025-05-04] MEDS: ASPIRIN 81 MG CHEWABLE TABLET 324 MG PO (02:28)
[2025-05-04 02:33] LABS: Hematocrit 34.2 % (37.0-47.0); Hemoglobin 10.9 g/dL (12.0-15.0); Immature Granulocyte Percent A 0.4 % (0-0.5); Lymphocytes Absolute Auto 1.82 K/mm3 (0.9-3.2); Mean Corpuscular HGB Conc 31.9 g/dl (32-36); Mean Corpuscular Hemoglobin 29.6 pg (26-34); Mean Corpuscular Volume 92.9 fl (80-100); Nucleated Red Blood Cells Absolute Auto 0.000 K/mm3 (0.0-0.012); Nucleated Red Blood Cells Perc 0.0 % (0.0-0.2); Platelet Count Result 263 k/mm3 (150-375); Red Blood Count 3.68 M/mm3 (4.2-5.4); White Blood Count 7.0 K/mm3 (4.5-10.0)
[2025-05-04 02:46] LABS: INR 1.1; Prothrombin Time 14.0 Seconds (11.1-14.7)
[2025-05-04 02:47] LABS: Partial Thromboplastin Time 28.7 Seconds (22.3-36.8)
[2025-05-04 03:05] LABS: Alanine Aminotransferase 21 U/L (6-35); Albumin Level 4.2 g/dL (3.5-5.1); Alkaline Phosphatase 187 U/L (38-126); Anion Gap 5 mmol/L (4-12); Aspartate Amino Transferase 36 U/L (14-36); Bilirubin,Total 0.7 mg/dL (0.2-1.3); Blood Urea Nitrogen 36 mg/dL (7-17); Calcium 9.6 mg/dL (8.4-10.2); Carbon Dioxide 32 mmol/L (22-30); Chloride 100 mmol/L (98-107); Estimated CRCL calculation 50 ml/min; Estimated Glomerular Filt Rate 50; Glucose 114 mg/dL (65-110); Lipase 155 U/L (23-300); Potassium 5.3 mmol/L (3.4-5.0); Sodium 137 mmol/L (137-145); Total Protein 7.5 g/dL (6.3-8.2)
[2025-05-04 03:16] LABS: Troponin I < 0.012 ng/mL (0.000-0.034)
--- NOTE | 2025-05-04 05:02 | ECG_ITS ---
Test Date: 2025-05-04 05:05:29 Measurements Intervals [place] Rate: 58 P: 45 WI: 163 QRS: -3 QRSD: 90 T: 5 QT: 402 QTc: 396 Interpretive Statements SINUS BRADYCARDIA LOW QRS VOLTAGE IN PRECORDIAL LEADS [QRS DEFLECTION < 1.0 mV IN CHEST LEADS] INFERIOR INFARCT, AGE INDETERMINATE Compared to ECG 05/04/2025 02:02:38 NO SIGNIFICANT CHANGES Electronically Signed On 05-04-2025 09:39:18 COMPONENT PREP OPERATOR by Mason Ureña M.D.
--- NOTE | 2025-05-04 05:07 | ED.CHESTPAIN ---
HPI - Chest Pain General Chief Complaint: Chest Pain Stated Complaint: CHEST PAIN, HX BYPASS SURGERY Time Seen by Provider: 05/04/25 03:40 History of Present Illness HPI narrative: 75-year-old female with history of coronary disease status post triple-vessel bypass September of this year. Also has a history of hypertension. Presents to the emergency department with chest pain intermittent for last month. Saw her primary care provider on Sunday who stated if she was had any recurrence of these she should go to the ER for better evaluation. States the pain is feeling a muscle spasm near her incision site. She points towards the right side of her sternal wall where the sternotomy was and states the pain is localized here more. Denies any shortness of breath or pain with exertion or deep breathing. Pain worse with movement and palpation of this area. Occasionally intermittent in nature and has not been constant sensation. No associated dyspnea, nausea, vomiting, abdominal pain, back pain. Has not tried anything besides Tylenol for symptoms. Has not been in contact with her geological scout about this. Related Data Home Medications ?Medication ?Instructions ?Recorded ?Confirmed ?Last Taken ?Type loratadine 10 mg tablet (Claritin) 10 mg PO DAILY 02/08/23 05/01/25 Unknown History amiodarone 200 mg tablet 200 mg PO BID 11/04/24 05/01/25 Unknown History atorvastatin 40 mg tablet (Lipitor) 40 mg PO DAILY 11/04/24 05/01/25 Unknown History clopidogrel 75 mg tablet 75 mg PO DAILY 11/04/24 05/01/25 Unknown History furosemide 40 mg tablet 40 mg PO QAM 11/04/24 05/01/25 Unknown History spironolactone 25 mg tablet 25 mg PO DAILY 11/04/24 05/01/25 Unknown History Allergies Allergy/AdvReac Type Severity Reaction Status Date / Time Penicillins Allergy Unknown Hives Verified 05/04/25 02:20 Review of Systems Review of Systems: As reviewed above in HPI [facility] Past Medical History Medical History Non-STEMI (non-ST elevated myocardial infarction) Mild aortic stenosis Diastolic dysfunction Echocardiogram July 2024: EF of 65-70%, mildly increased left ventricular wall thickness, diastolic dysfunction grade 1, E/E mildly elevated 12, global longitudinal strain is-21, moderate aortic valve sclerosis, mild aortic valve stenosis valve area of 1.9 Venous (peripheral) insufficiency Severe obstructive sleep apnea Polysomnogram 09/26/2024 recommended CPAP of 16 Pre-diabetes Breast asymmetry between red devil breast and reconstructed breast Radial styloid tenosynovitis [de quervain] Sinusitis Contact dermatitis Varicose vein of leg Hemorrhoids Mumps Hypertension Surgical History Surgical History History of left oophorectomy History of cholecystectomy Family History Family History Mother , of complications of diabetes at age 84 Diabetes mellitus Emphysema lung Cerebrovascular accident Sibling Diabetes mellitus Acute myocardial infarction, Onset Age: 60 Hypertension Cerebrovascular accident Father Alcoholism Heart disease, Onset Age: 70 Hypertension Sibling Diabetes mellitus Sibling Diabetes mellitus Other Family history of allergic disorder Social History Social History Social History: She is she lives in her own home. she has 1 son. Her brother lives with her. She is a former smoker she smoked 3 packs per day for about 20 years but quit smoking at the age of 39. 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 Code status: Full code Surrogate decision maker: Donald Borja (son) Smoking packs per day: 2 Smoking cigarettes per day: 40.0 Years smoked: 15 Smoking pack-years: 30.00 Smoking status: Former smoker Tobacco type: cigarettes Second hand tobacco smoke exposure: No Smoking end date: 07/02/89 Alcohol intake: former Alcohol use details: She used to drink alcohol on occasion but has not done so in many years. Substance use: former Substance use type: marijuana Last use: 1974 Do You Feel Safe in your Home?: Yes Lack of Transportation: No Lack of Food: Never True Current Housing: I Have Housing Concerned About Future Housing: No Difficulty Paying Gas/Electric Bills: No Difficulty Paying for Meds: No Currently Unemployed: YES Education: Decline to Answer Difficulty w/ Childcare or Family Care: No Living arrangements: alone Occupation/Education: occupation Gender identity (if verbalized by the patient): Female Sexual Orientation (if Verbalized by the Patient): Straight or Heterosexual Spiritual care concerns: No Exam Narrative: GENERAL: [Well-appearing, well-nourished, and in no acute distress.] HEAD: [Normocephalic, atraumatic.] EYES: [PERRLA and EOMI.] ENT: Nares clear, no rhinorrhea or epistaxis. Mucous membranes moist. NECK: Supple. CHEST: Clear to auscultation with no respiratory distress or labored breathing. Sternotomy scar appears clean dry and intact. Tenderness to palpation over the right lateral aspect of the sternotomy scar near the costochondral junction. No overlying crepitus or deformity. No cellulitis. HEART: [Regular rate and rhythm]. No murmur heard. [Normal peripheral pulses.] ABDOMEN: [Soft, nondistended], [nontender], [No rigidity or guarding] EXTREMITIES: Normal range of motion. [No edema.] SKIN: Warm, dry, no rash. NEURO: [No focal deficits]. Alert and oriented [x3.] PSYCH: [Normal mood and affect.] Course Vital Signs Vital signs: Vital Signs Pulse Rate 69 05/04/25 02:05 Respiratory Rate 16 05/04/25 02:05 Pulse Oximetry 100 05/04/25 02:05 Temperature 37.0 C 05/04/25 02:14 Pulse Rate 62 05/04/25 05:01 Respiratory Rate 14 05/04/25 05:01 Blood Pressure 155/74 H 05/04/25 05:01 Pulse Oximetry 98 05/04/25 04:45 Oxygen Delivery Room Air 05/04/25 02:14 MDM - Chest Pain MDM Narrative Medical decision making narrative: 75-year-old female with history of coronary disease status post triple-vessel bypass September of this year. Also has a history of hypertension. Presents to the emergency department with chest pain intermittent for last month. Saw her primary care provider on Sunday who stated if she was had any recurrence of these she should go to the ER for better evaluation. States the pain is feeling a muscle spasm near her incision site. She points towards the right side of her sternal wall where the sternotomy was and states the pain is localized here more. Denies any shortness of breath or pain with exertion or deep breathing. Pain worse with movement and palpation of this area. Occasionally intermittent in nature and has not been constant sensation. No associated dyspnea, nausea, vomiting, abdominal pain, back pain. Has not tried anything besides Tylenol for symptoms. Has not been in contact with her geological scout about this. Clear to auscultation with no respiratory distress or labored breathing. Sternotomy scar appears clean dry and intact. Tenderness to palpation over the right lateral aspect of the sternotomy scar near the costochondral junction. No overlying crepitus or deformity. No cellulitis. Hemodynamically stable with normal vital signs. Symptoms consistent with musculoskeletal chest wall pain from the incision site or costochondritis. She does have cardiac disease so ACS will need to be ruled out. EKG and serial troponins ordered as well as blood work. Patient states her doctor recently prescribed her baclofen yesterday for this that she took a single dose of in has not had significant effect yet. Patient's initial and delta troponin are negative. No leukocytosis or significant anemia. Normal platelet count. Creatinine mildly elevated as well as potassium. Likely dehydrated. Given a fluid bolus. Normal glucose. Normal LFTs. Chest x-ray shows no acute pneumothorax or obvious consolidation. Post sternotomy wires compared to previous chest x-ray. EKG shows sinus rhythm without any ST segment changes. Delta EKG unremarkable. Remain patient remains hemodynamically stable and safe for discharge home at this time with regular cardiology follow-up and return precautions. Medical Records Data Attestation: I reviewed the patient's medical records. Lab Data Attestation: I reviewed the patient's lab results. 05/04/25 02:24 05/04/25 02:24 Labs: Lab Results 05/04/25 05/04/25 Range/Units 02:24 04:58 WBC 7.0 (4.5-10.0) K/mm3 RBC 3.68 L (4.2-5.4) M/mm3 Hgb 10.9 L (12.0-15.0) g/dL Hct 34.2 L (37.0-47.0) % MCV 92.9 (80-100) fl MCH 29.6 (26-34) pg MCHC 31.9 L (32-36) g/dl RDW 16.0 H (11.5-14.5) % Plt Count 263 (150-375) k/mm3 MPV 10.3 (7.4-10.4) fl Immature Gran % (Auto) 0.4 (0-0.5) % Neut % (Auto) 62.5 (45.5-73.1) % Lymph % (Auto) 26.2 (18.3-44.2) % Camp % (Auto) 6.9 (2.6-8.5) % Eos % (Auto) 3.3 (0-4.4) % Baso % (Auto) 0.7 (0.2-1.2) % Lymph # (Auto) 1.82 (0.9-3.2) K/mm3 Camp # (Auto) 0.5 (0.1-0.6) K/mm3 Eos # (Auto) 0.2 (0-0.3) K/mm3 Baso # (Auto) 0.1 (0.0-0.1) K/mm3 Abs Immat Gran (auto) 0.03 (0.00-0.031) K/mm3 Absolute Neuts (auto) 4.3 (1.3-6.7) K/mm3 Absolute Nucleated RBC 0.000 (0.0-0.012) K/mm3 Nucleated RBC % 0.0 (0.0-0.2) % PT 14.0 (11.1-14.7) Seconds INR 1.1 APTT 28.7 (22.3-36.8) Seconds Sodium 137 (137-145) mmol/L Potassium 5.3 H (3.4-5.0) mmol/L Chloride 100 (98-107) mmol/L Carbon Dioxide 32 H (22-30) mmol/L Anion Gap 5 (4-12) mmol/L BUN 36 H D (7-17) mg/dL Creatinine 1.07 H (0.7-1.0) mg/dL Estim Creat Clear Calc 50 ml/min Estimated GFR 50 L (59 - ) Glucose 114 H (65-110) mg/dL Calcium 9.6 (8.4-10.2) mg/dL Total Bilirubin 0.7 (0.2-1.3) mg/dL AST 36 (14-36) U/L ALT 21 (6-35) U/L Alkaline Phosphatase 187 H (38-126) U/L Troponin I < 0.012 < 0.012 (0.000-0.034) ng/mL Total Protein 7.5 (6.3-8.2) g/dL Albumin 4.2 (3.5-5.1) g/dL Lipase 155 (23-300) U/L Imaging Data Attestation: I personally reviewed and interpreted this imaging study as follows: My impression: No acute pneumothorax or obvious consolidations. Discharge Plan Discharge Clinical Impression: Acute chest wall pain, Chest pain Patient Disposition: Home Condition: Stable Instructions: Antibiotic Form, Chest Pain (ED), Chest Wall Pain (ED) Additional Instructions: Cardiac workup was unrevealing today. Negative troponin x2 and no signs of EKG changes. No signs of cardiac issue or damage at this time. Symptoms consistent with musculoskeletal chest wall pain or spasms or incisional pain near the sternotomy. Follow-up with your primary care provider for further recommendations but I would try a Lidoderm or topical pain control medications in addition to your baclofen and even Tylenol or ibuprofen at home. Return with any persistent chest pain, difficulty breathing, losing consciousness, new emergent concerns or any issues. Patient Language: Surinamese Prescriptions: No Action spironolactone 25 mg tablet 25 mg PO DAILY Patient Comments: as per cardio amiodarone 200 mg tablet 200 mg PO BID Patient Comments: as per cardio clopidogrel 75 mg tablet 75 mg PO DAILY Patient Comments: as per cardio atorvastatin [Lipitor] 40 mg tablet 40 mg PO DAILY Patient Comments: as per cardio furosemide 40 mg tablet 40 mg PO QAM Patient Comments: as per cardio loratadine [Claritin] 10 mg tablet 10 mg PO DAILY baclofen 5 mg tablet 5 mg PO BID PRN (Reason: muscle spasm) Qty: 10 0RF Follow-up/Referrals: Romie Velasquez MD [Primary Care Provider, [facility]] Time of Disposition: 05:35
[2025-05-04 05:29] LABS: Troponin I < 0.012 ng/mL (0.000-0.034)
== END 2025-05-04 05:58 | disposition home or self-care (01) ==
PROVIDERS: Emergency Provider Student in an Organized Health Care Education/Training Program; PCP Family Medicine
DX: R07.89 Other chest pain (principal); R00.1 Bradycardia, unspecified; I25.2 Old myocardial infarction; G47.30 Sleep apnea, unspecified; I10 Essential (primary) hypertension; Z95.1 Presence of aortocoronary bypass graft
CPT/HCPCS: 36415; 71045; 80053; 83690; 84484; 85025; 85610; 85730; 93005; 99284; A9270

== ENCOUNTER 2025-06-12 11:41 | Outpatient (CLI) | payer MEDICARE, SELFPAY ==
[2025-06-12 12:44] LABS: Alanine Aminotransferase 21 U/L (6-35); Albumin Level 4.2 g/dL (3.5-5.1); Alkaline Phosphatase 175 U/L (38-126); Anion Gap 4 mmol/L (4-12); Aspartate Amino Transferase 42 U/L (14-36); Bilirubin,Total 0.6 mg/dL (0.2-1.3); Blood Urea Nitrogen 28 mg/dL (7-17); Calcium 9.3 mg/dL (8.4-10.2); Carbon Dioxide 29 mmol/L (22-30); Chloride 103 mmol/L (98-107); Cholesterol 139 mg/dL (0-200); Estimated Glomerular Filt Rate 48; Glucose 101 mg/dL (65-110); HDL Direct 77 mg/dL; Potassium 4.5 mmol/L (3.4-5.0); Sodium 136 mmol/L (137-145); Total Protein 7.5 g/dL (6.3-8.2); Triglycerides 70 mg/dL (<150)
== END 2025-06-12 11:42 | disposition home or self-care (01) ==
LOC: ANHLAB 11:43
PROVIDERS: PCP Family Medicine; Visit Provider Internal Medicine
DX: I25.118 Atherosclerotic heart disease of native coronary artery with other forms of angina pectoris (principal); E66.813 Obesity, class 3; Z68.41 Body mass index [BMI] 40.0-44.9, adult
CPT/HCPCS: 36415; 80053; 80061